=== PATIENT | female | born 1950 | race Caucasian/White ===

== ENCOUNTER → 2018-07-15 09:25 | Outpatient (CLI) | payer OTHER, SELFPAY ==
--- NOTE | 2018-07-15 | DI.CT.S_ITS ---
PROCEDURE: CT ABDOMEN PELVIS W CON INDICATIONS: ABDOMINAL PAIN WEIGHT LOSS TECHNIQUE: After the administration of oral and intravenous contrast, 5 mm thick sections acquired from the diaphragms to the symphysis. 5 mm thick coronal and sagittal reformats were performed. For radiation dose reduction, the following was used: automated exposure control, adjustment of mA and/or kV according to patient size. COMPARISON: [facility], CT, CT ANGIO CHEST PE, 05/31/2018, 13:35. FINDINGS: Image quality: Excellent. ABDOMEN: Lung bases: Questionable pulmonary scarring or atelectasis is present at the lateral left lung base. This was not visualized on the study dated 05/31/18. Solid organs: Liver is normal in size and enhancement. Gallbladder is mildly contracted.. Biliary system is non-dilated. Pancreas demonstrates overall normal enhancement. There is a 1.2 x 0.9 cm low-density cystic lesion within the body of the pancreas (series 2, image 26). There is a wedge-shaped regional area of hypodensity within the lower pole of the spleen which measures approximately 3.1 x 3.4 cm (series 2, image 27). No right adrenal nodules. There is 8mm diameter intermediate density left adrenal gland nodule (series 2, image 23). Kidneys are normal in size and enhancement, without hydronephrosis. The there is a 0.9 x 1.3 x 1.6 cm enhancing exophytic mass off the lower pole of the right kidney (series 2, image 38 and series 4, image 40). A low density cystic lesion is present off the midpole the left kidney. Peritoneum and bowel: Stomach, small bowel, and colon loops are normal in caliber and wall thickness. The appendix is not visualized; however there is no discrete right lower quadrant fluid or fat stranding to suggest acute appendicitis. No free fluid or air. Nodes and vessels: No retroperitoneal or mesenteric adenopathy. Aorta and inferior vena cava are normal in caliber. There are scattered atheromatous calcifications throughout the aorta and iliac arteries bilaterally. Miscellaneous: No ventral hernias. PELVIS: Genitourinary: Bladder wall thickness is normal. Miscellaneous: No inguinal adenopathy. There is a small fat-containing left inguinal hernia. Bones: No suspicious bony lesions. No vertebral body compression fractures. IMPRESSION: 1. Questionable pulmonary scar the left lung base. However, this was not visualized on the study dated 05/31/18. Given the chronicity of this finding short interval (1-3 month) CT followup is recommended to ensure there is no underlying occult mass. 2. Enhancing exophytic mass off the lower pole of the right kidney suspicious for neoplasm. Renal mass protocol CT is recommended to further characterize this finding. 3. Wedge-shaped hypodensity within the lower pole the spleen suspicious for splenic infarct. 4. Intermediate density adrenal gland mass. Differential considerations include metastasis an atypical adenoma. Adrenal mass protocol CT would be helpful to further characterize this finding. 5. Low-density cystic pancreatic mass. Cystic pancreatic neoplasm cannot be excluded. Pancreatic mass protocol CT recommended. Please note, multiple followup multiphase studies are recommended. Please coordinate with radiology to ensure appropriate phasicity to evaluate the pancreas, kidneys, and adrenal glands. Dictated by: Raina Burroughs M.D. on 07/15/2018 at 16:07 Approved by: Raina Burroughs M.D. on 07/15/2018 at 16:16
[2018-07-15 10:07] LABS: Estimated Glomerular Filt Rate 34.6 mL/min (>60)
== END ==
PROVIDERS: Family Provider Family Medicine; PCP Family Medicine; Visit Provider Internal Medicine
DX: R10.9 Unspecified abdominal pain (principal); R63.4 Abnormal weight loss; N28.9 Disorder of kidney and ureter, unspecified; E27.9 Disorder of adrenal gland, unspecified; K86.9 Disease of pancreas, unspecified
CPT/HCPCS: 36415; 74177; 82565; Q9967

== ENCOUNTER → 2018-07-22 10:10 | Outpatient (CLI) | payer OTHER, SELFPAY ==
--- NOTE | 2018-07-22 | DI.CT.S_ITS ---
PROCEDURE: CT ABDOMEN WO/W CON INDICATIONS: Further evaluation of adrenal, pancreatic, and renal lesions seen on recent CT. TECHNIQUE: Noncontrast 3 mm thick sections acquired from the diaphragms to the iliac crests. After the sequential administration of 2 boluses of intravenous contrast, 3 mm thick arterial/venous-phase and 10-minute delayed images acquired from the diaphragms to the iliac crests. For radiation dose reduction, the following was used: automated exposure control, adjustment of mA and/or kV according to patient size. COMPARISON: [facility], CT, CT ABDOMEN PELVIS W CON, 07/15/2018, 10:28. FINDINGS: Image quality: Excellent. Lung bases: There is mild dependent atelectasis and scarring in the lung bases. Heart size is normal. Solid organs: The liver demonstrates no focal hepatic lesions. Gallbladder appears within normal limits. Biliary system is non dilated. The spleen is normal in size. There is a wedge-shaped region of hypoattenuation redemonstrated within the anterior spleen consistent with a prior infarct. There is a left adrenal nodule measuring up to approximately 1.6 cm in thickness. This demonstrates attenuation values of less than 0 on noncontrast images consistent with a lipid rich adenoma. This also demonstrates relative washout of greater than 40% also compatible with an adenoma. At the junction of the body and tail of the pancreas, there is a small ovoid lesion measuring 1.1 x 0.8 x 1.0 cm which appears isoattenuating to the pancreas on noncontrast images. Following contrast administration, there is internal enhancement with relative hypoenhancement compared to the pancreatic parenchyma. There is an adjacent small calcified focus. Extending posterolaterally from the right kidney, there is an ovoid mass lesion which demonstrates slight hyperattenuation relative to the kidney. There is internal enhancement with relative hypoenhancement compared to the renal parenchyma. This measures approximately 1.5 x 1.0 x 1.4 cm. This appears to abut the posterior abdominal wall. Elsewhere, no evidence of local invasion. No renal vein extension. Kidneys demonstrate no hydronephrosis. There is a small exophytic cyst in the left kidney as well as a few small low density foci in the kidneys bilaterally which are too small to characterize but likely represent cysts. Peritoneum and bowel: Visualized bowel loops are normal in caliber and wall thickness. No free fluid or air. Nodes and vessels: No retroperitoneal or mesenteric adenopathy by size criteria. Aorta and inferior vena cava are normal in size. Miscellaneous: There are a few surgical clips anteriorly within the visualized abdomen. No ventral hernias. Bones: No suspicious bony lesions. No vertebral body compression fractures. IMPRESSION: 1. Enhancing mass at the junction of the pancreatic body and tail suspicious for neoplasm. Differential considerations include impression given its hypoenhancement, a neuroendocrine tumor, or metastatic disease among other etiologies. 2. Right renal enhancing mass highly suspicious for renal cell carcinoma. This abuts the posterior abdominal wall, with early invasion not excluded. No evidence of lymphadenopathy or renal vein invasion. 3. Left adrenal nodule consistent with an adenoma. Dictated by: Robbin Marx M.D. on 07/22/2018 at 11:05 Approved by: Robbin Marx M.D. on 07/22/2018 at 12:20
== END ==
PROVIDERS: Family Provider Family Medicine; PCP Family Medicine; Visit Provider Family Medicine
DX: E27.8 Other specified disorders of adrenal gland (principal); K86.89 Other specified diseases of pancreas; N28.9 Disorder of kidney and ureter, unspecified
CPT/HCPCS: 74170; Q9967

== ENCOUNTER 2018-08-10 14:43 | Emergency (ER) | payer OTHER, SELFPAY ==
--- NOTE | 2018-08-10 14:50 | DI.CT.S_ITS ---
PROCEDURE: CT HEAD/BRAIN WO CON INDICATIONS: HTN headache, hx cva in may TECHNIQUE: Noncontrast 4.5 mm thick angled axial sections acquired from the foramen magnum to the vertex, with coronal and sagittal reformats. For radiation dose reduction, the following was used: automated exposure control, adjustment of mA and/or kV according to patient size. COMPARISON: None. FINDINGS: Image quality: Excellent. CSF spaces: Basal cisterns are patent. No extra-axial fluid collections. The ventricles are symmetric in size and shape. Brain: No intracranial bleeds or masses. There is cerebral volume loss for age, with resultant ventricular and sulcal prominence. There are periventricular and deep white matter chronic small vessel ischemic changes. There is intracranial internal carotid artery atherosclerosis. Skull and face: Calvarium and visualized facial bones appear intact, without suspicious lesions. Sinuses: Visualized sinuses and mastoids are clear. IMPRESSION: Mildly motion degraded examination. Within those constraints, no gross acute intracranial process. Dictated by: Tobias Hollingsworth M.D. on 08/10/2018 at 15:26 Approved by: Tobias Hollingsworth M.D. on 08/10/2018 at 15:29
[2018-08-10 14:59] VITALS: BP 163/106; PULSE 69; RESP 19; TEMP 36.8; O2SAT 98; BMI 25.5
[2018-08-10 15:02] LABS: Add Manual Diff / Slide Review NO; Basophils Percent Auto 0.4 % (0-2); Eosinophils Percent Auto 2.3 % (2-4); Hematocrit 31.6 % (36-46); Hemoglobin 10.3 g/dL (12.0-16.0); Lymphocytes Percent Auto 32.6 % (25-40); Mean Corpuscular HGB Conc 32.7 % (30-36); Mean Corpuscular Volume 85.6 fL (80-100); Monocytes Percent Auto 6.1 % (3-14); Neutrophils Absolute Auto 5800 /uL (3000-5900); Neutrophils Percent Auto 58.6 % (50-75); Platelet Count 350 X10^3/uL (150-400); Red Blood Cell Count 3.69 X10^6/uL (4.0-5.2); White Blood Cell Count 9.9 X10^3/uL (4.5-11.0)
[2018-08-10 15:16] LABS: Alanine Aminotransferase 32 IU/L (9-52); Albumin 3.3 g/dL (3.5-5.0); Albumin Globulin Ratio 1.2 (1.0-2.8); Alkaline Phosphatase 75 U/L (38-126); Aspartate Aminotransferase 23 IU/L (14-36); BUN Creatinine Ratio 15.6 (6-22); Bilirubin Total 0.2 mg/dL (0.2-1.3); Blood Urea Nitrogen 14 mg/dL (7-17); Calcium 8.7 mg/dL (8.4-10.2); Carbon Dioxide 25 mmol/L (22-32); Chloride 104 mmol/L (98-107); Creatine Kinase 46 U/L (30-135); Estimated Glomerular Filt Rate > 60.0 mL/min (>60); Globulin 2.7 g/dL (1.7-4.1); Glucose 166 mg/dL (80-110); HEMOLYSIS < 15 (0-50); Potassium 4.5 mmol/L (3.4-5.1); Sodium 140 mmol/L (137-145)
[2018-08-10] MEDS: ACETAMINOPHEN 325 MG TABLET 650 MG PO (15:17)
--- NOTE | 2018-08-10 15:21 | ED_ITS ---
HPI - Headache General Chief Complaint: Headache Stated Complaint: Headache Time Seen by Provider: 08/10/18 14:48 Source: patient, EMS and old records reviewed Mode of arrival: EMS Limitations: no limitations History of Present Illness HPI Narrative: Patient is a 67-year-old female who presents with headache and hypertension. She said the headache started really bad this morning across forehead. Her gave her leave it did not really work. She called EMS who noted that her blood pressure was quite elevated in the 200s. She says that she took all of her blood pressure medication. She does have a history of a stroke in May she says she has no recollection of the stroke order 2 weeks during the stroke. She was sent to a halfway and rehab facility afterwards and then released back home where she is now. She has no numbness or tingling no weakness. She states that she does have some right arm residual weakness from a stroke but nothing new today. She has no chest pain or shortness of breath no nausea or vomiting. She says her headache is now a 2. Her blood pressure in the ED is now 163/102. She overall is feeling better. MD Complaint: headache Related Data Home Medications Medication Instructions Recorded Confirmed furosemide 20 mg PO QDAY #0 08/12/17 08/10/18 aspirin 325 mg PO DAILY 08/10/18 08/10/18 atorvastatin 80 mg PO DAILY 08/10/18 08/10/18 biotin 1,000 mcg PO DAILY 08/10/18 08/10/18 clopidogrel 75 mg PO DAILY 08/10/18 08/10/18 coenzyme Q10 [Co Q-10] 100 mg PO DAILY 08/10/18 08/10/18 diphenhydramine HCl 50 mg PO BEDTIME PRN 08/10/18 08/10/18 insulin glargine [Lantus Solostar 20 units SUBCUT QPM 08/10/18 08/10/18 U-100 Insulin] magnesium 250 mg PO DAILY 08/10/18 08/10/18 metformin 1,000 mg PO QPM 08/10/18 08/10/18 metformin 1,500 mg PO QAM 08/10/18 08/10/18 metoprolol tartrate 50 mg PO BID 08/10/18 08/10/18 naproxen sodium [Aleve] 440 mg PO QAM 08/10/18 08/10/18 omeprazole 20 mg PO DAILY 08/10/18 08/10/18 ondansetron HCl 4 mg PO Q6H PRN 08/10/18 08/10/18 trazodone 100 mg PO BEDTIME 08/10/18 08/10/18 Allergies Allergy/AdvReac Type Severity Reaction Status Date / Time shellfish derived Allergy Severe anaphylaxis Verified 08/10/18 15:16 [SHELLFISH DERIVED] Penicillins [PENICILLINS] Allergy Intermediate affects Verified 08/10/18 15:16 breathing acetaminophen Allergy Unknown Verified 08/10/18 15:16 [From DARVOCET-N] morphine [MORPHINE] Allergy Unknown Verified 08/10/18 15:16 propoxyphene Allergy Unknown Verified 08/10/18 15:16 [From DARVOCET-N] Tetracyclines [TETRACYCLINES] Allergy Unknown Verified 08/10/18 15:16 ERYTHROMYCIN Allergy Mild Uncoded 02/10/18 13:00 HYDROCODONE Allergy Mild Uncoded 02/10/18 13:00 SULFA Allergy Mild Uncoded 02/10/18 13:00 Review of Systems Review of Systems All systems reviewed & are unremarkable except as noted in HPI and below Constitutional Denies chills, Denies fever(s), Reports headache(s), Denies lethargy and Denies weakness ENT Ears, Nose, Mouth, and Throat: Reports headache(s) Cardiovascular Denies chest pain, Denies irregular heart rhythm, Denies lightheadedness, Denies palpitations, Denies dyspnea, Denies dyspnea on exertion and Denies orthopnea Respiratory Denies cough, Denies dyspnea, Denies dyspnea on exertion and Denies wheezing Gastrointestinal Gastrointestinal: Denies abdominal pain, Denies change in bowel habits, Denies diarrhea, Denies nausea and Denies vomiting Genitourinary Denies hematuria, Denies flank pain, Denies urinary incontinence and Denies urinary urgency Musculoskeletal Denies back pain, Denies muscle weakness, Denies numbness and Denies tingling Integumentary/Breasts Denies pruritus, Denies erythema, Denies rash and Denies wounds Neurologic Reports headache(s), Denies numbness, Denies tingling and Denies weakness Endocrine Denies palpitations Allergic/Immunologic Denies wheezing PFSH Medical History CVA (cerebral vascular accident) (Acute) Hyperlipidemia (Acute) Hypertension (Acute) Exam Initial Vital Signs Initial Vital Signs: Vital Signs Temperature 98.2 F 08/10/18 14:59 Pulse Rate 69 08/10/18 14:59 Respiratory Rate 19 08/10/18 14:59 Blood Pressure 163/106 H 08/10/18 14:59 Pulse Oximetry 98 08/10/18 14:59 GENERAL: Pleasant alert elderly female HEENT: Head atraumatic,EOMI, pupils reactive, face symmetric, neck is supple CARDIOVASCULAR: Regular rate and rhythm without murmurs, rubs or gallops. RESPIRATORY: Breath sounds equal bilaterally, no wheezes rales or rhonchi. ABDOMEN: Soft, nontender. Normoactive bowel sounds all 4 quadrants. No guarding or rebound. : No CVA tenderness EXTREMITIES: Normal range of motion, no clubbing or edema. Neurovascularly intact NEUROLOGICAL: Alert and oriented x4.Normal gait and speech. Cranial nerves II through XII grossly intact. 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 Lower extremities is are equal. SKIN: Warm, dry, no laceration, no petechiae, no rashes or lesions. Course Orders Ordered: ED Orders 08/10/18 14:50 CT head/brain wo con Stat Complete Blood Count AUTO DIFF Stat Comprehensive Metabolic Panel Stat Troponin & CK Cardiac Panel Stat EKG-12 Lead Stat Discontinued Medications Acetaminophen (Tylenol) 650 mg PO NOW ONE Stop: 08/10/18 14:51 Last Admin: 08/10/18 15:17 Dose: 650 mg Labetalol HCl (Normodyne) 20 mg IV NOW ONE Stop: 08/10/18 15:59 Last Admin: 08/10/18 16:03 Dose: 10 mg Vital Signs - 8 hr 08/10/18 14:59 08/10/18 15:32 08/10/18 16:19 Temperature 98.2 F Pulse Rate 69 69 81 Respiratory Rate 19 16 18 Blood Pressure 163/106 H Blood Pressure [Left Arm] 190/83 H 186/82 H Pulse Oximetry 98 98 96 08/10/18 16:32 Temperature Pulse Rate 85 Respiratory Rate 24 Blood Pressure Blood Pressure [Left Arm] 157/70 H Pulse Oximetry 97 MDM - Headache Lab Data Attestation: I reviewed the patient's lab results. Result diagrams: 08/10/18 14:50 08/10/18 14:50 Lab Results 08/10/18 08/10/18 Range/Units 14:50 14:50 WBC 9.9 (4.5-11.0) X10^3/uL RBC 3.69 L (4.0-5.2) X10^6/uL Hgb 10.3 L (12.0-16.0) g/dL Hct 31.6 L (36-46) % MCV 85.6 (80-100) fL MCH 28.0 (26-34) PG MCHC 32.7 (30-36) % RDW 14.0 (11.6-14.8) % Plt Count 350 (150-400) X10^3/uL Neut % (Auto) 58.6 (50-75) % Lymph % (Auto) 32.6 (25-40) % [place] % (Auto) 6.1 (3-14) % Eos % (Auto) 2.3 (2-4) % Baso % (Auto) 0.4 (0-2) % Neut # (Auto) 5800 (2206-8390) /uL Sodium 140 (137-145) mmol/L Potassium 4.5 (3.4-5.1) mmol/L Chloride 104 (98-107) mmol/L Carbon Dioxide 25 (22-32) mmol/L BUN 14 (7-17) mg/dL Creatinine 0.90 (0.52-1.04) mg/dL Estimated GFR > 60.0 (>60) mL/min BUN/Creatinine Ratio 15.6 (6-22) Glucose 166 H (80-110) mg/dL Calcium 8.7 (8.4-10.2) mg/dL Total Bilirubin 0.2 (0.2-1.3) mg/dL AST 23 (14-36) IU/L ALT 32 (9-52) IU/L Alkaline Phosphatase 75 (38-126) U/L Total Creatine Kinase 46 (30-135) U/L CK-MB (CK-2) TNP CK-MB (CK-2) Rel Index TNP Troponin I < 0.012 (0.01-0.034) ng/mL Total Protein 6.0 L (6.3-8.2) g/dL Albumin 3.3 L (3.5-5.0) g/dL Globulin 2.7 (1.7-4.1) g/dL Albumin/Globulin Ratio 1.2 (1.0-2.8) Imaging Data CT scan - head: Radiologist's impression: PROCEDURE: CT HEAD/BRAIN WO CON INDICATIONS: HTN headache, hx cva in may TECHNIQUE: Noncontrast 4.5 mm thick angled axial sections acquired from the foramen magnum to the vertex, with coronal and sagittal reformats. For radiation dose reduction, the following was used: automated exposure control, adjustment of mA and/or kV according to patient size. COMPARISON: None. FINDINGS: Image quality: Excellent. CSF spaces: Basal cisterns are patent. No extra-axial fluid collections. The ventricles are symmetric in size and shape. Brain: No intracranial bleeds or masses. There is cerebral volume loss for age , with resultant ventricular and sulcal prominence. There are periventricular and deep white matter chronic small vessel ischemic changes. There is intracranial internal carotid artery atherosclerosis. Skull and face: Calvarium and visualized facial bones appear intact, without suspicious lesions. Sinuses: Visualized sinuses and mastoids are clear. IMPRESSION: Mildly motion degraded examination. Within those constraints, no gross acute intracranial process. Dictated by: Tobias Hollingsworth M.D. on 08/10/2018 at 15:26 ECG Data Attestation: I personally reviewed and interpreted this ECG as follows: Prior ECG tracings: not available for review Interpretation: Normal sinus rhythm rate [address] changes Q-wave noted in lead 3 unchanged from 2017 MDM Narrative Medical decision making narrative: Patient's headache is basically gone after Tylenol however her blood pressure remained quite elevated. She is given 10 mg of labetalol. She has no focal deficits head CT blood work within normal limits. She feels ready and able to go home. Her is here they have a lot of help at home occupational therapy is along with others. She is currently asking for string cheese. Discharge Plan Departure Patient Disposition: Home Clinical Impression: Hypertension Discharge Date/Time: 08/10/18 16:55 Instructions: Essential Hypertension Activity Restrictions/Additional Instructions: *You have been diagnosed with hypertension *What to do: Blood work head CT all within normal limits *Continue to take medications as directed Take blood pressure medication tonight as previously prescribed *Follow up with your primary care provider in 2-3 days *Return to ER if you should have worsening headache, confusion, weakness, facial drooping or any new, worsening or concerning symptoms Prescriptions: No Action furosemide 20 MG tablet 20 mg PO QDAY Qty: 0 RF: 0 metformin 500 mg tablet 1,500 mg PO QAM RF: 0 metformin 500 mg tablet 1,000 mg PO QPM RF: 0 atorvastatin 80 mg tablet 80 mg PO DAILY RF: 0 diphenhydramine HCl 50 mg Capsule 50 mg PO BEDTIME PRN (Reason: Sleep) RF: 0 aspirin 325 mg Tablet 325 mg PO DAILY RF: 0 ondansetron HCl 4 mg tablet 4 mg PO Q6H PRN (Reason: Nausea) RF: 0 clopidogrel 75 mg tablet 75 mg PO DAILY RF: 0 trazodone 100 mg tablet 100 mg PO BEDTIME RF: 0 naproxen sodium [Aleve] 220 mg Tablet 440 mg PO QAM RF: 0 metoprolol tartrate 50 mg tablet 50 mg PO BID RF: 0 omeprazole 20 mg Capsule,Delayed Release(Dr/Ec) 20 mg PO DAILY RF: 0 magnesium 250 mg Tablet 250 mg PO DAILY RF: 0 coenzyme Q10 [Co Q-10] 100 mg Capsule 100 mg PO DAILY RF: 0 insulin glargine [Lantus Solostar U-100 Insulin] 100 unit/mL (3 mL) insulin pen 20 units subcut QPM RF: 0 biotin 1,000 mcg Tablet,Chewable 1,000 mcg PO DAILY RF: 0 Referrals: Esteban Pressley MD [Primary Care Provider] -
[2018-08-10 15:28] LABS: Troponin I < 0.012 ng/mL (0.01-0.034)
[2018-08-10 15:32] VITALS: BP 190/83; PULSE 69; RESP 16; O2SAT 98
--- NOTE | 2018-08-10 15:41 | PC.NURSE ---
Pt had stroke in May. Was hospitalized at [facility]. Went to a rehab facility and discharged home. Has home health nurse who recommended she come in for elevated blood pressure. 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 No arm drift, no speech slurring, no facial droop.
[2018-08-10] MEDS: LABETALOL 100 MG/20ML MDV 20 MG IV (16:03)
[2018-08-10 16:19] VITALS: BP 186/82; PULSE 81; RESP 18; O2SAT 96
[2018-08-10 16:32] VITALS: BP 157/70; PULSE 85; RESP 24; O2SAT 97
--- NOTE | 2018-08-12 17:22 | PC.NURSE ---
Provided follow up phone call, Pt reports feeling poor yesterday with headache, nausea, vomiting and diarrhea. Encouraged to call and schedule a follow up appt with pcp. Pt had no questions regarding d/c paperwork. No stated improvement.
== END 2018-08-10 16:55 | disposition home or self-care (01) ==
PROVIDERS: Emergency Provider Emergency Medicine; Family Provider Family Medicine; PCP Family Medicine
DX: I10 Essential (primary) hypertension (principal)
CPT/HCPCS: 36591; 70450; 80053; 82550; 84484; 85025; 93005; 96374; 99283; 99285

== ENCOUNTER 2018-08-25 07:46 | Emergency (ER) | payer OTHER, SELFPAY ==
[2018-08-25 07:52] VITALS: BP 208/72; PULSE 67; RESP 16; TEMP 36.5; O2SAT 94; BMI 25.4
[2018-08-25 08:11] VITALS: BP 160/83; PULSE 71; RESP 17; O2SAT 98
--- NOTE | 2018-08-25 09:37 | ED_ITS ---
HPI - Headache General Chief Complaint: Headache Stated Complaint: HEAD, EYE PAIN Time Seen by Provider: 08/25/18 09:15 Source: patient and family () Limitations: no limitations History of Present Illness HPI Narrative: This is a 67-year-old female who comes to the emergency department with complaint of headache patient states headache has been there for several days maybe even a week. It was worse particularly at 5:30 a.m. this morning Um and she states is still quite bad but she is a little bit better. Patient and her state that she had a stroke in May. He states that she had gone to the hospital she had a fall and struck her head Um and then was in the hospital for several weeks followed by a stay in a care facility. She has some mild right-sided deficits of her upper extremity lower leg but they state that it has been improving and she initially had slurred speech but that has resolved. Patient has not had any new weakness she is not having any slurred speech. She states her pain is sort of behind her eyes as well but she denies any new vision changes. Her and her states she both has chronic vision loss. Patient denies any neck pain or back pain. No chest pain or shortness of breath and no abdominal pain. She denies any vomiting but has felt nauseated. No GI or urinary symptoms. No incontinence. Patient had some Advil at home but was not helpful. Related Data Home Medications Medication Instructions Recorded Confirmed furosemide 20 mg PO QDAY #0 08/12/17 08/25/18 aspirin 325 mg PO DAILY 08/10/18 08/25/18 atorvastatin 80 mg PO DAILY 08/10/18 08/25/18 biotin 1,000 mcg PO DAILY 08/10/18 08/25/18 clopidogrel 75 mg PO DAILY 08/10/18 08/25/18 coenzyme Q10 [Co Q-10] 100 mg PO DAILY 08/10/18 08/25/18 diphenhydramine HCl 50 mg PO BEDTIME PRN 08/10/18 08/25/18 insulin glargine [Lantus Solostar 20 units SUBCUT QPM 08/10/18 08/25/18 U-100 Insulin] magnesium 250 mg PO DAILY 08/10/18 08/25/18 metformin 1,000 mg PO QPM 08/10/18 08/25/18 metformin 1,500 mg PO QAM 08/10/18 08/25/18 metoprolol tartrate 50 mg PO BID 08/10/18 08/25/18 naproxen sodium [Aleve] 440 mg PO QAM 08/10/18 08/25/18 omeprazole 20 mg PO DAILY 08/10/18 08/25/18 ondansetron HCl 4 mg PO Q6H PRN 08/10/18 08/25/18 trazodone 100 mg PO BEDTIME 08/10/18 08/25/18 benzonatate 1 cap PO TID PRN 08/25/18 08/25/18 diphenoxylate-atropine 1 tab PO QID PRN 08/25/18 08/25/18 glipizide 1 tab PO DAILY 08/25/18 08/25/18 losartan 1 tab PO DAILY 08/25/18 08/25/18 nitrofurantoin monohyd/m-cryst 1 cap PO BID 08/25/18 08/25/18 Previous Rx's Medication Instructions Recorded tramadol [Ultram] 50 mg PO Q6H PRN #5 tab 08/25/18 Allergies Allergy/AdvReac Type Severity Reaction Status Date / Time shellfish derived Allergy Severe anaphylaxis Verified 08/25/18 07:52 [SHELLFISH DERIVED] Penicillins [PENICILLINS] Allergy Intermediate affects Verified 08/25/18 07:52 breathing acetaminophen Allergy Unknown Verified 08/25/18 07:52 [From DARVOCET-N] morphine [MORPHINE] Allergy Unknown Verified 08/25/18 07:52 propoxyphene Allergy Unknown Verified 08/25/18 07:52 [From DARVOCET-N] Tetracyclines [TETRACYCLINES] Allergy Unknown Verified 08/25/18 07:52 ERYTHROMYCIN Allergy Mild Uncoded 08/25/18 07:52 HYDROCODONE Allergy Mild Uncoded 08/25/18 07:52 SULFA Allergy Mild Uncoded 08/25/18 07:52 Review of Systems Review of Systems All systems reviewed & are unremarkable except as noted in HPI and below Constitutional Denies fever(s), Denies frequent falls, Reports headache(s) and Reports weakness (Right-sided deficit from prior stroke) Eyes Denies change in vision ENT Ears, Nose, Mouth, and Throat: Reports headache(s) and Denies other (Facial droop) Cardiovascular Denies chest pain, Denies syncope, Denies irregular heart rhythm, Denies lightheadedness, Denies palpitations, Denies dyspnea, Denies dyspnea on exertion and Denies orthopnea Respiratory Denies cough, Denies dyspnea, Denies dyspnea on exertion and Denies wheezing Gastrointestinal Gastrointestinal: Denies abdominal pain, Denies change in bowel habits, Denies diarrhea, Reports nausea and Denies vomiting Genitourinary Denies urinary frequency and Denies other (Urinary incontinence) Musculoskeletal Reports as per HPI, Denies abnormal gait, Denies back pain, Denies numbness and Denies tingling Integumentary/Breasts Denies rash Neurologic Denies abnormal gait, Denies confusion, Denies syncope, Denies frequent falls, Reports headache(s), Denies lack of coordination, Denies numbness, Denies tingling and Reports weakness (Right-sided deficit from prior stroke) Psychiatric Denies confusion Endocrine Denies palpitations Allergic/Immunologic Denies wheezing PFSH Medical History CVA (cerebral vascular accident) (Acute) Hyperlipidemia (Acute) Hypertension (Acute) Social History alcohol intake: never substance use type: does not use Exam Narrative Exam Narrative: GEN: well nourished, well appearing elderly female, alert and oriented x 3, patient appears to be in mild distress. HEENT: Atraumatic, pupils are equal round reactive to light, extraocular movements are intact, nares are clear, TMs are clear with no fluid, there is no conjunctival pallor. Throat is clear without any exudates, erythema, tonsillar enlargement or uvular deviation, no facial droop. No dysarthria. HEART: Regular rate and rhythm without murmur, clicks, rubs. pulses are equal in upper and lower extremities LUNGS:Lungs clear to auscultation, no wheezes, rales, crackles, chest moves symmetrically ABD:bowel sounds normal, soft, non-tender, no guarding, rebound, rigidity, no masses noted, no hepatosplenomegaly :No CVA tenderness MSCL: Non-tender, no muscle atrophy, muscles strength 5/5 upper and lower extremities, patient is able to hold arms and legs for 10 sec without issue ordered drop. although pantograph transferrer is slightly weaker on the right compared to left, full range of motion NEURO:CN 2-12 intact, sensation normal, reflexes 2/4 upper and lower extremities. finger nose normal, patient has difficulty touching my finger but on both sides and her states she has vision issues and she cannot see my finger, heel roche test normal Initial Vital Signs Initial Vital Signs: Vital Signs Temperature 97.7 F 08/25/18 07:52 Pulse Rate 67 08/25/18 07:52 Respiratory Rate 16 08/25/18 07:52 Blood Pressure 208/72 H 08/25/18 07:52 Pulse Oximetry 94 08/25/18 07:52 Scores NIH Stroke Scale Level of Conciousness: Alert, keenly responsive Ask month/age: Answers both questions correctly. Best gaze horizontal: Normal Visual francis: No visual loss (patient does have some loss but not hemianopia) Facial palsy: Normal symetrical movement Left arm drift: No drift for full 10 sec Right arm drift: No drift for full 10 sec Left leg drift: No drift for full 10 sec Right leg drift: No drift for full 10 sec Limb ataxia: Absent Sensory on face/arms/legs: Normal, no sensory loss Best language: No aphasia, normal Dysarthria: Normal Extinction or inattention: No abnormality Course Orders Ordered: Discontinued Medications Acetaminophen (Tylenol) 975 mg PO NOW ONE Stop: 08/25/18 09:35 Last Admin: 08/25/18 11:29 Dose: Not Given Dexamethasone (Decadron) 4 mg IV NOW ONE Stop: 08/25/18 12:18 Last Admin: 08/25/18 12:21 Dose: 4 mg Sodium Chloride (Normal Saline 0.9%) 1,000 mls @ 1,000 mls/hr IV BOLUS ONE Stop: 08/25/18 10:33 Last Infusion: 08/25/18 12:22 Dose: 0 mls/hr Admin: 08/25/18 10:05 Dose: 1,000 mls/hr Ketorolac Tromethamine (Toradol) 15 mg IV NOW ONE Stop: 08/25/18 11:15 Last Admin: 08/25/18 11:25 Dose: 15 mg Ondansetron HCl (Zofran) 4 mg IV NOW ONE Stop: 08/25/18 10:05 Last Admin: 08/25/18 10:05 Dose: 4 mg Tramadol HCl (Ultram) 50 mg PO NOW ONE Stop: 08/25/18 12:42 Last Admin: 08/25/18 12:51 Dose: 25 mg Vital Signs - 8 hr 08/25/18 12:27 08/25/18 13:13 08/25/18 13:32 Pulse Rate 84 72 75 Respiratory Rate 17 15 Blood Pressure 203/105 H Blood Pressure [Left Arm] 203/76 H 219/75 H Pulse Oximetry 98 98 97 MDM - Headache Lab Data Attestation: I reviewed the patient's lab results. Result diagrams: 08/25/18 08:05 08/25/18 08:05 Lab Results 08/25/18 08/25/18 08/25/18 Range/Units 08:05 08:05 08:05 WBC 7.1 (4.5-11.0) X10^3/uL RBC 3.42 L (4.0-5.2) X10^6/uL Hgb 9.7 L (12.0-16.0) g/dL Hct 28.6 L (36-46) % MCV 83.6 (80-100) fL MCH 28.4 (26-34) PG MCHC 33.9 (30-36) % RDW 13.9 (11.6-14.8) % Plt Count 361 (150-400) X10^3/uL Neut % (Auto) 60.8 (50-75) % Lymph % (Auto) 28.4 (25-40) % Throckmorton % (Auto) 7.2 (3-14) % Eos % (Auto) 3.0 (2-4) % Baso % (Auto) 0.6 (0-2) % Neut # (Auto) 4300 (3858-0092) /uL PT 10.7 (10.1-12.7) SECONDS INR 1.0 (0.9-1.3) APTT 30 (26.4-36.2) SECONDS Sodium 140 (137-145) mmol/L Potassium 3.4 (3.4-5.1) mmol/L Chloride 102 (98-107) mmol/L Carbon Dioxide 35 H (22-32) mmol/L BUN 11 (7-17) mg/dL Creatinine 0.70 (0.52-1.04) mg/dL Estimated GFR > 60.0 (>60) mL/min BUN/Creatinine Ratio 15.7 (6-22) Glucose 88 (80-110) mg/dL Calcium 8.4 (8.4-10.2) mg/dL Total Bilirubin 0.3 (0.2-1.3) mg/dL AST 101 H (14-36) IU/L ALT 41 (9-52) IU/L Alkaline Phosphatase 77 (38-126) U/L Total Protein 5.7 L (6.3-8.2) g/dL Albumin 3.1 L (3.5-5.0) g/dL Globulin 2.6 (1.7-4.1) g/dL Albumin/Globulin Ratio 1.2 (1.0-2.8) Urine RBC (0-5/HPF) Urine WBC (0-5/HPF) Urine Bacteria (None) Ur Culture Indicated? Micro UA Comment 08/25/18 Range/Units 09:15 WBC (4.5-11.0) X10^3/uL RBC (4.0-5.2) X10^6/uL Hgb (12.0-16.0) g/dL Hct (36-46) % MCV (80-100) fL MCH (26-34) PG MCHC (30-36) % RDW (11.6-14.8) % Plt Count (150-400) X10^3/uL Neut % (Auto) (50-75) % Lymph % (Auto) (25-40) % Throckmorton % (Auto) (3-14) % Eos % (Auto) (2-4) % Baso % (Auto) (0-2) % Neut # (Auto) (9635-0886) /uL PT (10.1-12.7) SECONDS INR (0.9-1.3) APTT (26.4-36.2) SECONDS Sodium (137-145) mmol/L Potassium (3.4-5.1) mmol/L Chloride (98-107) mmol/L Carbon Dioxide (22-32) mmol/L BUN (7-17) mg/dL Creatinine (0.52-1.04) mg/dL Estimated GFR (>60) mL/min BUN/Creatinine Ratio (6-22) Glucose (80-110) mg/dL Calcium (8.4-10.2) mg/dL Total Bilirubin (0.2-1.3) mg/dL AST (14-36) IU/L ALT (9-52) IU/L Alkaline Phosphatase (38-126) U/L Total Protein (6.3-8.2) g/dL Albumin (3.5-5.0) g/dL Globulin (1.7-4.1) g/dL Albumin/Globulin Ratio (1.0-2.8) Urine RBC None seen (0-5/HPF) Urine WBC None seen (0-5/HPF) Urine Bacteria None seen (None) Ur Culture Indicated? Cult not indicated Micro UA Comment Microscopic normal Point of Care Testing Glucose POC 104 Urine Dip Bedside Urine Glucose Negative Bedside Urine Bilirubin - Negative Bedside Urine Ketone - Negative Urine Specific Hammett 1.015 Bedside Urine Occult Blood - Negative Bedside Urine pH 7.5 Bedside Urine Protein ++ 100 Bedside Urine Urobilinogen - Negative Bedside Urine Nitrite - Negative Bedside Urine Leukocytes - Negative Esterase Imaging Data CT scan - head: Radiologist's impression: [address] [address] [address] Scan Report Signed Patient: Anu Escudero LMR#: [id number] : [id number]:[id number] Age/Sex: 67 / FDate of Service: 08/25/18 Loc: ED Accession Number: [id number] Procedure: CT head/brain wo con Ordering Provider: Heike Moy D.O. PROCEDURE: CT HEAD/BRAIN WO CON INDICATIONS: headache for several days, had cva in May. TECHNIQUE: Noncontrast 4.5 mm thick angled axial sections acquired from the foramen magnum to the vertex, with coronal and sagittal reformats. For radiation dose reduction, the following was used: automated exposure control, adjustment of mA and/or kV according to patient size. COMPARISON: None. FINDINGS: Image quality: Excellent. CSF spaces: Basal cisterns are patent. No extra-axial fluid collections. The ventricles are symmetric in size and shape. Brain: No intracranial bleeds or masses. There is cerebral volume loss for age , with resultant ventricular and sulcal prominence. There are periventricular and deep white matter chronic small vessel ischemic changes. There is intracranial internal carotid artery atherosclerosis. Skull and face: Calvarium and visualized facial bones appear intact, without suspicious lesions. Sinuses: Visualized sinuses and mastoids are clear. IMPRESSION: No acute disease, source of current symptoms is not seen. Dictated by: Ilia Muñiz M.D. on 08/25/2018 at 10:01 Approved by: Ilia Muñiz M.D. on 08/25/2018 at 10:01 [facility] Narrative Medical decision making narrative: Patient is having a severe headache over the last several days worsening today. She did have a recent stroke Um and we discussed that she is not having any new neurologic changes. She does have some right-sided deficit according to her although it has been improving. Patient today has some slightly decreased pantograph transferrer on the right but her upper and lower extremities otherwise have equal strength. She does not have any difficulty with speech or other signs of new stroke. Was head CT is negative. Patient has a long list of allergies but will try Toradol for pain she states she can have ibuprofen. She cannot have narcotics she states they make her stop breathing. Patient urine is also negative with no signs of infection. Toradol was helpful after some time. Still has some discomfort and given tramadol which patient tolerated. Discharge Plan Departure Patient Disposition: Home Clinical Impression: Headache Discharge Date/Time: 08/25/18 13:34 Interventions: ED Discharge Assessment Last Done: 08/25/18 13:32 Instructions: DI for Headache Activity Restrictions/Additional Instructions: Follow-up with your primary care physician in the next 24-48 hours for recheck. Continue your home medications as prescribed. You may take Advil or Ibuprofen for pain. Return to the emergency department for fevers, worsening headaches, new vision changes, new weakness, new numbness, new changes to speech or difficulty with movement or balance. Any chest pain, shortness of breath or passing out. Prescriptions: New tramadol [Ultram] 50 mg tablet 50 mg PO Q6H PRN (Reason: pain) Qty: 5 RF: 0 No Action furosemide 20 MG tablet 20 mg PO QDAY Qty: 0 RF: 0 metformin 500 mg tablet 1,500 mg PO QAM RF: 0 metformin 500 mg tablet 1,000 mg PO QPM RF: 0 atorvastatin 80 mg tablet 80 mg PO DAILY RF: 0 diphenhydramine HCl 50 mg Capsule 50 mg PO BEDTIME PRN (Reason: Sleep) RF: 0 aspirin 325 mg Tablet 325 mg PO DAILY RF: 0 ondansetron HCl 4 mg tablet 4 mg PO Q6H PRN (Reason: Nausea) RF: 0 clopidogrel 75 mg tablet 75 mg PO DAILY RF: 0 trazodone 100 mg tablet 100 mg PO BEDTIME RF: 0 naproxen sodium [Aleve] 220 mg Tablet 440 mg PO QAM RF: 0 metoprolol tartrate 50 mg tablet 50 mg PO BID RF: 0 omeprazole 20 mg Capsule,Delayed Release(Dr/Ec) 20 mg PO DAILY RF: 0 magnesium 250 mg Tablet 250 mg PO DAILY RF: 0 coenzyme Q10 [Co Q-10] 100 mg Capsule 100 mg PO DAILY RF: 0 insulin glargine [Lantus Solostar U-100 Insulin] 100 unit/mL (3 mL) insulin pen 20 units subcut QPM RF: 0 biotin 1,000 mcg Tablet,Chewable 1,000 mcg PO DAILY RF: 0 losartan 50 mg tablet 1 tab PO DAILY RF: 0 diphenoxylate-atropine 2.5-0.025 mg tablet 1 tab PO QID PRN (Reason: Diarrhea) RF: 0 benzonatate 100 mg capsule 1 cap PO TID PRN (Reason: Cough) RF: 0 glipizide 5 mg tablet 1 tab PO DAILY RF: 0 nitrofurantoin monohyd/m-cryst 100 mg capsule 1 cap PO BID RF: 0
[2018-08-25 09:44] LABS: Add Manual Diff / Slide Review NO; Basophils Percent Auto 0.6 % (0-2); Hematocrit 28.6 % (36-46); Hemoglobin 9.7 g/dL (12.0-16.0); Lymphocytes Percent Auto 28.4 % (25-40); Mean Corpuscular HGB Conc 33.9 % (30-36); Mean Corpuscular Hemoglobin 28.4 PG (26-34); Mean Corpuscular Volume 83.6 fL (80-100); Monocytes Percent Auto 7.2 % (3-14); Neutrophils Absolute Auto 4300 /uL (3000-5900); Neutrophils Percent Auto 60.8 % (50-75); Platelet Count 361 X10^3/uL (150-400); Red Blood Cell Count 3.42 X10^6/uL (4.0-5.2); Red Cell Distribution Width 13.9 % (11.6-14.8); White Blood Cell Count 7.1 X10^3/uL (4.5-11.0)
--- NOTE | 2018-08-25 09:44 | DI.CT.S_ITS ---
PROCEDURE: CT HEAD/BRAIN WO CON INDICATIONS: headache for several days, had cva in May. TECHNIQUE: Noncontrast 4.5 mm thick angled axial sections acquired from the foramen magnum to the vertex, with coronal and sagittal reformats. For radiation dose reduction, the following was used: automated exposure control, adjustment of mA and/or kV according to patient size. COMPARISON: None. FINDINGS: Image quality: Excellent. CSF spaces: Basal cisterns are patent. No extra-axial fluid collections. The ventricles are symmetric in size and shape. Brain: No intracranial bleeds or masses. There is cerebral volume loss for age, with resultant ventricular and sulcal prominence. There are periventricular and deep white matter chronic small vessel ischemic changes. There is intracranial internal carotid artery atherosclerosis. Skull and face: Calvarium and visualized facial bones appear intact, without suspicious lesions. Sinuses: Visualized sinuses and mastoids are clear. IMPRESSION: No acute disease, source of current symptoms is not seen. Dictated by: Ilia Muñiz M.D. on 08/25/2018 at 10:01 Approved by: Ilia Muñiz M.D. on 08/25/2018 at 10:01
[2018-08-25 09:45] LABS: Prothrombin Time 10.7 SECONDS (10.1-12.7)
[2018-08-25 09:47] LABS: Alanine Aminotransferase 41 IU/L (9-52); Albumin 3.1 g/dL (3.5-5.0); Albumin Globulin Ratio 1.2 (1.0-2.8); Alkaline Phosphatase 77 U/L (38-126); Aspartate Aminotransferase 101 IU/L (14-36); BUN Creatinine Ratio 15.7 (6-22); Bilirubin Total 0.3 mg/dL (0.2-1.3); Blood Urea Nitrogen 11 mg/dL (7-17); Calcium 8.4 mg/dL (8.4-10.2); Carbon Dioxide 35 mmol/L (22-32); Chloride 102 mmol/L (98-107); Estimated Glomerular Filt Rate > 60.0 mL/min (>60); Globulin 2.6 g/dL (1.7-4.1); Glucose 88 mg/dL (80-110); HEMOLYSIS 21 (0-50); Potassium 3.4 mmol/L (3.4-5.1); Sodium 140 mmol/L (137-145); Total Protein 5.7 g/dL (6.3-8.2)
[2018-08-25 09:48] LABS: PTT Partial Thromboplastin Tim 30 SECONDS (26.4-36.2)
[2018-08-25] MEDS: ONDANSETRON 4 MG/2 ML INJ IV (10:05)
[2018-08-25] MEDS: SODIUM CHLORIDE 0.9% 1,000 ML 1000 ML IV (10:05)
[2018-08-25 11:00] VITALS: BP 128/90; PULSE 74; RESP 23; O2SAT 98
[2018-08-25 11:14] LABS: Bacteria Urine None Seen; RBC Urine None Seen (0-5/HPF); WBC Urine None Seen (0-5/HPF)
[2018-08-25] MEDS: KETOROLAC 60 MG/2 ML VIAL 15 MG IV (11:25)
[2018-08-25 11:32] LABS: Culture Indicated Urine Cult Not Indicated; Urine Comments Microscopic Normal
[2018-08-25] MEDS: DEXAMETHASONE 4 MG/ML VIAL IV (12:21)
[2018-08-25 12:27] VITALS: BP 203/76; PULSE 84; RESP 17; O2SAT 98
[2018-08-25] MEDS: TRAMADOL 50 MG TABLET PO (12:51)
[2018-08-25 13:13] VITALS: BP 219/75; PULSE 72; RESP 15; O2SAT 98
[2018-08-25 13:32] VITALS: BP 203/105; PULSE 75; O2SAT 97
== END 2018-08-25 13:34 | disposition home or self-care (01) ==
PROVIDERS: Emergency Provider Emergency Medicine; PCP Family Medicine
DX: R51 Headache (principal)
CPT/HCPCS: 36591; 70450; 80053; 81003; 81015; 82962; 85025; 85610; 85730; 96361; 96374; 96375; 99283; 99284; J1100; J1885; J2405

== ENCOUNTER 2018-09-14 14:20 | Emergency (ER) | payer OTHER, SELFPAY ==
[2018-09-14 14:20] VITALS: BP 188/85; PULSE 63; RESP 14; TEMP 36.8; O2SAT 99
--- NOTE | 2018-09-14 15:26 | DI.CT.S_ITS ---
PROCEDURE: CT FACIAL BONES WO CON INDICATIONS: fall 3 days ago lots of brusing TECHNIQUE: Noncontrast 2.5 mm thick axial images acquired from the mandible through the frontal sinuses, with coronal and sagittal reformatting. For radiation dose reduction, the following was used: automated exposure control, adjustment of mA and/or kV according to patient size. COMPARISON: [facility], CT, CT HEAD/BRAIN WO CON, 09/14/2018, 16:13. FINDINGS: Image quality: Excellent. Bones and teeth: Small nondisplaced left nasal bone fracture is noted. Nasal septum is intact. Orbital cabrales are intact. Sinus cabrales show no fracture or deformity. Visualized portions of the mandible demonstrate no fractures or subluxation. Zygomatic arches are intact. Pterygoid plates are intact. Visualized portions of the skull base and auditory canals are intact. Degenerative disc disease is present at C5-C6 and C6-C7. Sinuses: Paranasal sinuses are aerated, without fluid levels, mucosal thickening, or mucoceles. Mastoid air cells are aerated. Soft tissues: No edema, masses, or fluid collections. No enlarged lymph nodes. No soft tissue lacerations or debris. Vascular: Visualized vascular structures appear normal in the absence of contrast. Bony vascular foramina and canals are intact. IMPRESSION: 1. A small nondisplaced left nasal bone fracture. Dictated by: Amarilys Hannon M.D. on 09/14/2018 at 16:41 Approved by: Amarilys Hannon M.D. on 09/14/2018 at 16:48
--- NOTE | 2018-09-14 15:26 | DI.CT.S_ITS ---
PROCEDURE: CT ABDOMEN PELVIS W CON INDICATIONS: Vomiting, pancreatic mass, early satiety TECHNIQUE: After the administration of intravenous contrast, 5 mm thick sections acquired from the diaphragm to the symphysis. 5 mm coronal and sagittal reformats were acquired. For radiation dose reduction, the following was used: automated exposure control, adjustment of mA and/or kV according to patient size. COMPARISON: [facility], CT, CT ANGIO CHEST PE, 05/31/2018, 13:35. [facility], CT, CT ABDOMEN WO/W CON, 07/22/2018, 11:12. [facility], CT, CT ABDOMEN PELVIS W CON, 07/15/2018, 10:28. FINDINGS: Image quality: Excellent. ABDOMEN: Lung bases: Left basilar subpleural scar. Heart size is normal. Solid organs: Liver is normal in size and enhancement. Gallbladder is normal. Biliary system is non dilated. There is a 1.1 cm hypodense nodule in pancreas at the junction of the pancreatic body and tail, unchanged in size. Spleen is normal in size and enhancement. There is a 1 cm left adrenal nodule, compatible with an adrenal adenoma based on the prior CT. A 1 cm enhancing nodules present in the right inferior pole, suspicious for neoplasm. There is a 1.5 cm diameter simple appearing cyst in the inferior pole the left kidney. Kidneys demonstrate normal size without hydronephrosis. Peritoneum and bowel: There is thickening in the air of gastric antrum. Bowel loops demonstrate normal caliber. No free fluid or air. Nodes and vessels: No retroperitoneal or mesenteric adenopathy by size criteria. Aorta and inferior vena cava are normal in size. Miscellaneous: No ventral hernias. PELVIS: Genitourinary: Bladder wall thickness is normal. Miscellaneous: No inguinal hernias or adenopathy. Bones: No suspicious bony lesions. No vertebral body compression fractures. IMPRESSION: 1. Gastric antral thickening is present, which may be secondary to peptic ulcer disease or gastritis. 2. Stable 1.1 cm low density mass in pancreas at the pancreatic body and tail junction. Please see the pancreatic protocol CT report dated 07/22/22 for detail. 3. Small enhancing nodule in the inferior pole of the right kidney suspicious for a small renal cell carcinoma. Urology consultation is recommended. 4. Stable left adrenal adenoma. Dictated by: Amarilys Hannon M.D. on 09/14/2018 at 16:48 Approved by: Amarilys Hannon M.D. on 09/14/2018 at 17:02
--- NOTE | 2018-09-14 15:29 | DI.CT.S_ITS ---
PROCEDURE: CT HEAD/BRAIN WO CON INDICATIONS: fall facial bruising TECHNIQUE: Noncontrast 4.5 mm thick angled axial sections acquired from the foramen magnum to the vertex, with coronal and sagittal reformats. For radiation dose reduction, the following was used: automated exposure control, adjustment of mA and/or kV according to patient size. COMPARISON: [facility], CT, CT HEAD/BRAIN WO CON, 08/10/2018, 14:47. [facility], CT, CT HEAD/BRAIN WO CON, 08/25/2018, 9:37. FINDINGS: Image quality: Excellent. CSF spaces: Basal cisterns are patent. No extra-axial fluid collections. The ventricles are symmetric in size and shape. Brain: No intracranial bleeds or masses. There is moderate cerebral volume loss for age, with resultant ventricular and sulcal prominence. There are moderate to severe periventricular and deep white matter chronic small vessel ischemic changes. Old lacunar infarcts are noted in the right caudate and basal ganglia. There is intracranial internal carotid artery atherosclerosis. Skull and face: Calvarium and visualized facial bones appear intact, without suspicious lesions. Sinuses: Visualized sinuses and mastoids are clear. IMPRESSION: 1. No acute intracranial abnormalities. 2. Cerebral volume loss and chronic microvascular ischemic changes. Dictated by: Amarilys Hannon M.D. on 09/14/2018 at 16:38 Approved by: Amarilys Hannon M.D. on 09/14/2018 at 16:41
--- NOTE | 2018-09-14 15:34 | ED.FALL ---
HPI - Fall General Chief Complaint: Fall Stated Complaint: cannot stand up, dizzy, fell, cant eat Time Seen by Provider: 09/14/18 14:59 Source: patient Mode of arrival: ambulatory Limitations: no limitations History of Present Illness HPI Narrative: Patient is a 67-year-old female who presents with a variety of complaints. She has a history of a stroke on in May she was placed seen at shelter [facility]hab and eventually discharged back home to her . Her says that she is dizzy she is unsteady on her feet she actually fell she has a contusion of her right eye she fell all last week. He says that she has home health care but she does not work with them. He says that she is not eating or drinking. She is feeling nauseated. His unable to keep food or drink in. He says she has progressively gotten worse over last 2 weeks. She will not get out of bed. Patient herself is awake and alert and has complaints of right arm discomfort but has had rate arm discomfort ongoing since her stroke. Nothing new. She denies feeling dizzy or lightheaded her Related Data Home Medications Medication Instructions Recorded Confirmed furosemide 20 mg PO DAILY #0 08/12/17 09/14/18 aspirin 325 mg PO DAILY 08/10/18 08/25/18 atorvastatin 80 mg PO DAILY 08/10/18 09/14/18 biotin 1,000 mcg PO DAILY 08/10/18 09/14/18 clopidogrel 75 mg PO DAILY 08/10/18 09/14/18 coenzyme Q10 [Co Q-10] 100 mg PO DAILY 08/10/18 09/14/18 diphenhydramine HCl 50 mg PO BEDTIME PRN 08/10/18 09/14/18 insulin glargine [Lantus Solostar 20 units SUBCUT QPM 08/10/18 09/14/18 U-100 Insulin] magnesium 250 mg PO DAILY 08/10/18 09/14/18 metformin 1,000 mg PO QPM 08/10/18 09/14/18 metformin 1,500 mg PO QAM 08/10/18 09/14/18 metoprolol tartrate 50 mg PO BID 08/10/18 09/14/18 naproxen sodium [Aleve] 440 mg PO QAM 08/10/18 09/14/18 omeprazole 20 mg PO DAILY 08/10/18 09/14/18 ondansetron HCl 4 mg PO Q6H PRN 08/10/18 09/14/18 trazodone 100 mg PO BEDTIME 08/10/18 09/14/18 benzonatate 1 cap PO TID PRN 08/25/18 09/14/18 diphenoxylate-atropine 1 tab PO QID PRN 08/25/18 09/14/18 glipizide 1 tab PO DAILY 08/25/18 09/14/18 losartan 50 mg PO DAILY 08/25/18 09/14/18 lovastatin 20 mg PO DAILY 09/14/18 09/14/18 oxybutynin chloride 5 mg PO BID 09/14/18 09/14/18 Previous Rx's Medication Instructions Recorded tramadol [Ultram] 50 mg PO Q6H PRN #5 tab 08/25/18 Allergies Allergy/AdvReac Type Severity Reaction Status Date / Time shellfish derived Allergy Severe anaphylaxis Verified 08/25/18 07:52 [SHELLFISH DERIVED] Penicillins [PENICILLINS] Allergy Intermediate affects Verified 08/25/18 07:52 breathing acetaminophen Allergy Unknown Verified 08/25/18 07:52 [From DARVOCET-N] morphine [MORPHINE] Allergy Unknown Verified 08/25/18 07:52 propoxyphene Allergy Unknown Verified 08/25/18 07:52 [From DARVOCET-N] Tetracyclines [TETRACYCLINES] Allergy Unknown Verified 08/25/18 07:52 ERYTHROMYCIN Allergy Mild Uncoded 08/25/18 07:52 HYDROCODONE Allergy Mild Uncoded 08/25/18 07:52 SULFA Allergy Mild Uncoded 08/25/18 07:52 Review of Systems Review of Systems All systems reviewed & are unremarkable except as noted in HPI and below Constitutional Denies chills, Reports fatigue, Denies fever(s), Reports frequent falls, Denies night sweats and Reports poor appetite Eyes Denies change in vision, Denies eye discharge, Denies irritation and Denies loss of vision Cardiovascular Denies chest pain, Denies irregular heart rhythm, Denies lightheadedness, Denies palpitations, Denies dyspnea, Denies dyspnea on exertion and Denies orthopnea Respiratory Denies cough, Denies dyspnea, Denies dyspnea on exertion and Denies wheezing Gastrointestinal Gastrointestinal: Denies abdominal pain, Denies change in bowel habits, Denies diarrhea, Denies nausea and Denies vomiting Genitourinary Denies hematuria, Denies flank pain, Denies urinary incontinence and Denies urinary urgency Musculoskeletal Reports as per HPI Integumentary/Breasts Comments: Contusion right eye Neurologic Reports as per HPI, Reports frequent falls and Denies loss of vision Endocrine Reports fatigue and Denies palpitations Hematologic/Lymphatic Reports easy bruising Allergic/Immunologic Denies wheezing Exam Initial Vital Signs Initial Vital Signs: Vital Signs Temperature 98.2 F 09/14/18 14:20 Pulse Rate 63 09/14/18 14:20 Respiratory Rate 14 09/14/18 14:20 Blood Pressure 188/85 H 09/14/18 14:20 Pulse Oximetry 99 09/14/18 14:20 Const General: cooperative and No acute distress Nutritional Appearance: well nourished Orientation: alert, awake and oriented x3 HENMT Head: normal to inspection and normocephalic Ears: hearing grossly normal bilaterally Face and sinus: abrasion on the right periorbital Eyes General: appearance normal, both eyes and all related structures Periorbital: periorbital findings abnormal right periorbital ecchymosis Neck Neck: normal visual inspection, full ROM and no meningeal signs Chest Chest: normal inspection of the chest Resp Effort & Inspection: normal respiratory effort, able to speak in complete sentences, no respiratory distress and no use of accessory muscles Auscultation: clear to auscultation bilaterally, no rales, no rhonchi and no wheezes Cardio Rate: regular rate Rhythm: regular rhythm Heart Sounds: no click, no gallops, no murmurs and no rubs Pulses: normal peripheral pulses GI Inspection: non-distended Palpation: soft, no hepatosplenomegaly, No guarding, No pulsatile mass and No tender Auscultation: normal bowel sounds Skin General: no rashes or lesions noted, ecchymosis (As described right eye), No jaundice and No petechiae Neuro General: alert, oriented x3, gait normal and no focal motor deficits Speech: speech normal Motor: No strength 5/5 throughout (Decreased strength in right arm remains unchanged per and previous notes) [facility] Medical History CVA (cerebral vascular accident) (Acute) Hyperlipidemia (Acute) Hypertension (Acute) Social History alcohol intake: never substance use type: does not use Course Orders Ordered: ED Orders 09/14/18 15:18 Complete Blood Count AUTO DIFF Stat Comprehensive Metabolic Panel Stat Prothrombin Time INR Stat Troponin I Stat 09/14/18 15:26 CT abdomen pelvis w con Stat CT facial bones wo con Stat 09/14/18 15:29 CT head/brain wo con Stat Discontinued Medications Sodium Chloride (Normal Saline 0.9%) 1,000 mls @ 150 mls/hr IV CONT JUNIOR Last Infusion: 09/14/18 18:16 Dose: 0 mls/hr Admin: 09/14/18 15:40 Dose: 150 mls/hr Vital Signs - 8 hr 09/14/18 14:20 09/14/18 17:41 Temperature 98.2 F Pulse Rate 63 70 Respiratory Rate 14 15 Blood Pressure 188/85 H Blood Pressure [Right Arm] 201/64 H Pulse Oximetry 99 99 MDM - Fall Medical Records Attestation: I reviewed the patient's medical records. Lab Data Attestation: I reviewed the patient's lab results. Result diagrams: 09/14/18 15:18 09/14/18 15:18 Lab Results 09/14/18 09/14/18 09/14/18 Range/Units 15:18 15:18 15:18 WBC 9.8 (4.5-11.0) X10^3/uL RBC 3.96 L (4.0-5.2) X10^6/uL Hgb 10.8 L (12.0-16.0) g/dL Hct 32.0 L (36-46) % MCV 80.9 (80-100) fL MCH 27.3 (26-34) PG MCHC 33.7 (30-36) % RDW 14.1 (11.6-14.8) % Plt Count 383 (150-400) X10^3/uL Neut % (Auto) 56.3 (50-75) % Lymph % (Auto) 34.3 (25-40) % [place] % (Auto) 5.8 (3-14) % Eos % (Auto) 2.4 (2-4) % Baso % (Auto) 1.2 (0-2) % Neut # (Auto) 5500 (0161-9700) /uL PT 10.8 (10.1-12.7) SECONDS INR 1.0 (0.9-1.3) Sodium 138 (137-145) mmol/L Potassium 4.2 (3.4-5.1) mmol/L Chloride 97 L (98-107) mmol/L Carbon Dioxide 26 (22-32) mmol/L BUN 16 (7-17) mg/dL Creatinine 0.90 (0.52-1.04) mg/dL Estimated GFR > 60.0 (>60) mL/min BUN/Creatinine Ratio 17.8 (6-22) Glucose 89 (80-110) mg/dL Calcium 8.8 (8.4-10.2) mg/dL Total Bilirubin 0.2 (0.2-1.3) mg/dL AST 29 (14-36) IU/L ALT 27 (9-52) IU/L Alkaline Phosphatase 67 (38-126) U/L Troponin I < 0.012 (0.01-0.034) ng/mL Total Protein 6.1 L (6.3-8.2) g/dL Albumin 3.5 (3.5-5.0) g/dL Globulin 2.6 (1.7-4.1) g/dL Albumin/Globulin Ratio 1.3 (1.0-2.8) Imaging Data CT scan - abdomen: Radiologist's impression: PROCEDURE: CT ABDOMEN PELVIS W CON INDICATIONS: Vomiting, pancreatic mass, early satiety TECHNIQUE: After the administration of intravenous contrast, 5 mm thick sections acquired from the diaphragm to the symphysis. 5 mm coronal and sagittal reformats were acquired. For radiation dose reduction, the following was used: automated exposure control, adjustment of mA and/or kV according to patient size. COMPARISON: [facility], CT, CT ANGIO CHEST PE, 05/31/2018, 13:35. [facility], CT, CT ABDOMEN WO/W CON, 07/22/2018, 11:12. [facility], CT, CT ABDOMEN PELVIS W CON, 07/15/2018, 10:28. FINDINGS: Image quality: Excellent. ABDOMEN: Lung bases: Left basilar subpleural scar. Heart size is normal. Solid organs: Liver is normal in size and enhancement. Gallbladder is normal. Biliary system is non dilated. There is a 1.1 cm hypodense nodule in pancreas at the junction of the pancreatic body and tail, unchanged in size. Spleen is normal in size and enhancement. There is a 1 cm left adrenal nodule, compatible with an adrenal adenoma based on the prior CT. A 1 cm enhancing nodules present in the right inferior pole, suspicious for neoplasm. There is a 1.5 cm diameter simple appearing cyst in the inferior pole the left kidney. Kidneys demonstrate normal size without hydronephrosis. Peritoneum and bowel: There is thickening in the air of gastric antrum. Bowel loops demonstrate normal caliber. No free fluid or air. Nodes and vessels: No retroperitoneal or mesenteric adenopathy by size criteria. Aorta and inferior vena cava are normal in size. Miscellaneous: No ventral hernias. PELVIS: Genitourinary: Bladder wall thickness is normal. Miscellaneous: No inguinal hernias or adenopathy. Bones: No suspicious bony lesions. No vertebral body compression fractures. IMPRESSION: 1. Gastric antral thickening is present, which may be secondary to peptic ulcer disease or gastritis. 2. Stable 1.1 cm low density mass in pancreas at the pancreatic body and tail junction. Please see the pancreatic protocol CT report dated 07/22/22 for detail. 3. Small enhancing nodule in the inferior pole of the right kidney suspicious for a small renal cell carcinoma. Urology consultation is recommended. 4. Stable left adrenal adenoma. Dictated by: Amarilys Hannon M.D. on 09/14/2018 at 16:48 CT scan - head: Radiologist's impression: PROCEDURE: CT HEAD/BRAIN WO CON INDICATIONS: fall facial bruising TECHNIQUE: Noncontrast 4.5 mm thick angled axial sections acquired from the foramen magnum to the vertex, with coronal and sagittal reformats. For radiation dose reduction, the following was used: automated exposure control, adjustment of mA and/or kV according to patient size. COMPARISON: [facility], CT, CT HEAD/BRAIN WO CON, 08/10/2018, 14:47. [facility], CT, CT HEAD/BRAIN WO CON, 08/25/2018, 9:37. FINDINGS: Image quality: Excellent. CSF spaces: Basal cisterns are patent. No extra-axial fluid collections. The ventricles are symmetric in size and shape. Brain: No intracranial bleeds or masses. There is moderate cerebral volume loss for age, with resultant ventricular and sulcal prominence. There are moderate to severe periventricular and deep white matter chronic small vessel ischemic changes. Old lacunar infarcts are noted in the right caudate and basal ganglia. There is intracranial internal carotid artery atherosclerosis. Skull and face: Calvarium and visualized facial bones appear intact, without suspicious lesions. Sinuses: Visualized sinuses and mastoids are clear. IMPRESSION: 1. No acute intracranial abnormalities. 2. Cerebral volume loss and chronic microvascular ischemic changes. Dictated by: Amarilys Hannon M.D. on 09/14/2018 at 16:38 CT FAce: Radiologist's impression: PROCEDURE: CT FACIAL BONES WO CON INDICATIONS: fall 3 days ago lots of brusing TECHNIQUE: Noncontrast 2.5 mm thick axial images acquired from the mandible through the frontal sinuses, with coronal and sagittal reformatting. For radiation dose reduction, the following was used: automated exposure control, adjustment of mA and/or kV according to patient size. COMPARISON: [facility], CT, CT HEAD/BRAIN WO CON, 09/14/2018, 16:13. FINDINGS: Image quality: Excellent. Bones and teeth: Small nondisplaced left nasal bone fracture is noted. Nasal septum is intact. Orbital cabrales are intact. Sinus cabrales show no fracture or deformity. Visualized portions of the mandible demonstrate no fractures or subluxation. Zygomatic arches are intact. Pterygoid plates are intact. Visualized portions of the skull base and auditory canals are intact. Degenerative disc disease is present at C5-C6 and C6-C7. Sinuses: Paranasal sinuses are aerated, without fluid levels, mucosal thickening, or mucoceles. Mastoid air cells are aerated. Soft tissues: No edema, masses, or fluid collections. No enlarged lymph nodes. No soft tissue lacerations or debris. Vascular: Visualized vascular structures appear normal in the absence of contrast. Bony vascular foramina and canals are intact. IMPRESSION: 1. A small nondisplaced left nasal bone fracture. Dictated by: Amarilys Hannon M.D. on 09/14/2018 at 16:41 ECG Data Interpretation: Normal sinus rhythm rate [address] changes no T-wave inversions similar to previous EKG MDM Narrative Medical decision making narrative: Long discussion with patient and has been. Patient seems quite content with no complaints. She does have some right arm pain occasionally. Patient is wanting her admitted he needs help at home. They do actually live with their son who tries to help and they have home health care. At this time I have explained that she does not meet criteria for observation or admission. 5:50 p.[address]. I spoke with Dr. Alberts who also agrees that she does not meet criteria observation or admission. She will have case management is still short call them in the morning to help come up with a long-term outpatient plan. I have discussed this plan with the patient and her . Patient is ambulatory with a walker she is able to do so on her own though she needs to move slowly so that he does not fall she does not always follow directions. Patient has not been vomiting tolerating oral fluids. Discharge Plan Departure Patient Disposition: Home Clinical Impression: Weakness Discharge Date/Time: 09/14/18 18:25 Interventions: ED Discharge Assessment Last Done: 09/14/18 18:24 Instructions: DI for Muscle Weakness Activity Restrictions/Additional Instructions: Tomorrow a case management/social services aide from [facility] will be calling in to help set up tank terminal gauger care. At this time you do not need inpatient for observation criteria *You have been diagnosed with weakness *Continue to take medications as directed *Follow up with your primary care provider in 2-3 days *Return to ER if you should have increasing falls, confusion, or any new, worsening or concerning symptoms Prescriptions: No Action furosemide 20 MG tablet 20 mg PO DAILY Qty: 0 RF: 0 metformin 500 mg tablet 1,500 mg PO QAM RF: 0 metformin 500 mg tablet 1,000 mg PO QPM RF: 0 atorvastatin 80 mg tablet 80 mg PO DAILY RF: 0 diphenhydramine HCl 50 mg Capsule 50 mg PO BEDTIME PRN (Reason: Sleep) RF: 0 aspirin 325 mg Tablet 325 mg PO DAILY RF: 0 ondansetron HCl 4 mg tablet 4 mg PO Q6H PRN (Reason: Nausea) RF: 0 clopidogrel 75 mg tablet 75 mg PO DAILY RF: 0 trazodone 100 mg tablet 100 mg PO BEDTIME RF: 0 naproxen sodium [Aleve] 220 mg Tablet 440 mg PO QAM RF: 0 metoprolol tartrate 50 mg tablet 50 mg PO BID RF: 0 omeprazole 20 mg Capsule,Delayed Release(Dr/Ec) 20 mg PO DAILY RF: 0 magnesium 250 mg Tablet 250 mg PO DAILY RF: 0 coenzyme Q10 [Co Q-10] 100 mg Capsule 100 mg PO DAILY RF: 0 insulin glargine [Lantus Solostar U-100 Insulin] 100 unit/mL (3 mL) insulin pen 20 units subcut QPM RF: 0 biotin 1,000 mcg Tablet,Chewable 1,000 mcg PO DAILY RF: 0 losartan 50 mg tablet 50 mg PO DAILY RF: 0 diphenoxylate-atropine 2.5-0.025 mg tablet 1 tab PO QID PRN (Reason: Diarrhea) RF: 0 benzonatate 100 mg capsule 1 cap PO TID PRN (Reason: Cough) RF: 0 glipizide 5 mg tablet 1 tab PO DAILY RF: 0 tramadol [Ultram] 50 mg tablet 50 mg PO Q6H PRN (Reason: pain) Qty: 5 RF: 0 lovastatin 20 mg tablet 20 mg PO DAILY RF: 0 oxybutynin chloride 5 mg tablet 5 mg PO BID RF: 0 Referrals: Esteban Pressley MD [Primary Care Provider] -
[2018-09-14 15:39] LABS: Add Manual Diff / Slide Review NO; Basophils Percent Auto 1.2 % (0-2); Eosinophils Percent Auto 2.4 % (2-4); Hemoglobin 10.8 g/dL (12.0-16.0); Lymphocytes Percent Auto 34.3 % (25-40); Mean Corpuscular HGB Conc 33.7 % (30-36); Mean Corpuscular Hemoglobin 27.3 PG (26-34); Mean Corpuscular Volume 80.9 fL (80-100); Monocytes Percent Auto 5.8 % (3-14); Neutrophils Absolute Auto 5500 /uL (3000-5900); Neutrophils Percent Auto 56.3 % (50-75); Platelet Count 383 X10^3/uL (150-400); Red Blood Cell Count 3.96 X10^6/uL (4.0-5.2); Red Cell Distribution Width 14.1 % (11.6-14.8); White Blood Cell Count 9.8 X10^3/uL (4.5-11.0)
[2018-09-14 15:40] LABS: Prothrombin Time 10.8 SECONDS (10.1-12.7)
[2018-09-14] MEDS: SODIUM CHLORIDE 0.9% 1,000 ML 150 ML IV (15:40)
[2018-09-14 15:46] LABS: Alanine Aminotransferase 27 IU/L (9-52); Albumin 3.5 g/dL (3.5-5.0); Albumin Globulin Ratio 1.3 (1.0-2.8); Alkaline Phosphatase 67 U/L (38-126); Aspartate Aminotransferase 29 IU/L (14-36); BUN Creatinine Ratio 17.8 (6-22); Bilirubin Total 0.2 mg/dL (0.2-1.3); Blood Urea Nitrogen 16 mg/dL (7-17); Calcium 8.8 mg/dL (8.4-10.2); Carbon Dioxide 26 mmol/L (22-32); Chloride 97 mmol/L (98-107); Estimated Glomerular Filt Rate > 60.0 mL/min (>60); Globulin 2.6 g/dL (1.7-4.1); Glucose 89 mg/dL (80-110); HEMOLYSIS 27 (0-50); Potassium 4.2 mmol/L (3.4-5.1); Sodium 138 mmol/L (137-145); Total Protein 6.1 g/dL (6.3-8.2)
[2018-09-14 15:58] LABS: Troponin I < 0.012 ng/mL (0.01-0.034)
[2018-09-14 17:41] VITALS: BP 201/64; PULSE 70; RESP 15; O2SAT 99
--- NOTE | 2018-09-14 17:59 | PC.NURSE ---
pt able to walk with walker, pt needs reminding to slow down.
== END 2018-09-14 18:25 | disposition home or self-care (01) ==
PROVIDERS: Emergency Provider Emergency Medicine; PCP Family Medicine
DX: R53.1 Weakness (principal)
CPT/HCPCS: 36591; 70450; 70486; 74177; 80053; 84484; 85025; 85610; 93005; 96360; 96361; 99283; 99285; Q9967

== ENCOUNTER 2021-07-07 14:59 | Emergency (ER) | payer MEDICARE, MEDICAID, SELFPAY ==
[2021-07-07] VITALS (8 sets, daily range): BP systolic 171–188; BP diastolic 76–100; PULSE 70–87; RESP 15–30; TEMP 36.6; O2SAT 94–97
--- NOTE | 2021-07-07 15:26 | DI.RAD.S_ITS ---
PROCEDURE: XR CHEST 1V INDICATIONS: chest pain TECHNIQUE: One view of the chest was acquired. COMPARISON: [facility], CT, CT ABDOMEN PELVIS WITHOUT CONTRAST, 05/06/2021, 14:04. [facility], CR, XR CHEST 1 VIEW, 06/11/2018, 9:00. [facility], CR, XR CHEST 1 VIEW, 09/30/2018, 8:36. [facility], CR, CHEST 1 VIEW, 08/12/2017, 6:12. FINDINGS: Surgical changes and devices: Upper abdominal clips are partially seen. Lungs and pleura: Lungs are clear. No pleural effusions or pneumothorax. Mediastinum: Mediastinal contours appear normal. Heart size is normal. Bones and chest wall: No suspicious bony lesions. Age-appropriate bony degenerative changes are seen. S-shaped scoliotic curvature is seen. Overlying soft tissues appear unremarkable. IMPRESSION: Clear lungs. Dictated by: Ketan Johns M.D. on 07/07/2021 at 15:05 Approved by: Ketan Johns M.D. on 07/07/2021 at 15:06
--- NOTE | 2021-07-07 16:03 | ED_ITS ---
HPI - Altered Mental Status General Chief Complaint: Abdominal Pain Stated Complaint: Stomach Issues,Aches from Waist Up,Can't Stand Up Time Seen by Provider: 07/07/21 15:40 Source: patient and family Mode of arrival: Wheelchair History of Present Illness HPI narrative: Patient is a 70-year-old female history of CVA, diabetes, frequent UTI she has long-term care facilities according to . She has had significant foreign exchange trader the last 2-3 days. He says definitely over the last 10 days she has had decreased appetite she has had intermittent nausea off no vomiting. She currently feels well vomiting now. She at some point had a bdominal pain but does not have any abdominal pain now. She overall is an extremely poor historian. She has actually had 3 COVID vaccinations, the long- term care facility had small outbreak and she got a booster. Related Data Home Medications Medication Instructions Recorded Confirmed furosemide 20 mg tablet 20 mg PO DAILY #0 08/12/17 09/14/18 aspirin 325 mg tablet 325 mg PO DAILY 08/10/18 08/25/18 atorvastatin 80 mg tablet 80 mg PO DAILY 08/10/18 09/14/18 biotin 1,000 mcg chewable tablet 1,000 mcg PO DAILY 08/10/18 09/14/18 clopidogrel 75 mg tablet 75 mg PO DAILY 08/10/18 09/14/18 coenzyme Q10 100 mg capsule (Co 100 mg PO DAILY 08/10/18 09/14/18 Q-10) diphenhydramine HCl 50 mg capsule 50 mg PO BEDTIME PRN 08/10/18 09/14/18 insulin glargine 100 unit/mL (3 20 units SUBCUT QPM 08/10/18 09/14/18 mL) subcutaneous pen magnesium 250 mg tablet 250 mg PO DAILY 08/10/18 09/14/18 metformin 500 mg tablet 1,000 mg PO QPM 08/10/18 09/14/18 metformin 500 mg tablet 1,500 mg PO QAM 08/10/18 09/14/18 metoprolol tartrate 50 mg tablet 50 mg PO BID 08/10/18 09/14/18 naproxen sodium 220 mg tablet 440 mg PO QAM 08/10/18 09/14/18 (Aleve) omeprazole 20 mg capsule,delayed 20 mg PO DAILY 08/10/18 09/14/18 release ondansetron HCl 4 mg tablet 4 mg PO Q6H PRN 08/10/18 09/14/18 trazodone 100 mg tablet 100 mg PO BEDTIME 08/10/18 09/14/18 benzonatate 100 mg capsule 1 cap PO TID PRN 08/25/18 09/14/18 diphenoxylate-atropine 2.5 1 tab PO QID PRN 08/25/18 09/14/18 mg-0.025 mg tablet glipizide 5 mg tablet 1 tab PO DAILY 08/25/18 09/14/18 losartan 50 mg tablet 50 mg PO DAILY 08/25/18 09/14/18 lovastatin 20 mg tablet 20 mg PO DAILY 09/14/18 09/14/18 oxybutynin chloride 5 mg tablet 5 mg PO BID 09/14/18 09/14/18 Previous Rx's Medication Instructions Recorded tramadol 50 mg tablet (Ultram) 50 mg PO Q6H PRN #5 tab 08/25/18 ciprofloxacin HCl 500 mg tablet 500 mg PO BID #14 tab 07/07/21 (Cipro) Allergies Allergy/AdvReac Type Severity Reaction Status Date / Time shellfish derived Allergy Severe anaphylaxis Verified 08/25/18 07:52 [SHELLFISH DERIVED] Penicillins [PENICILLINS] Allergy Intermediate affects Verified 08/25/18 07:52 breathing acetaminophen Allergy Unknown Verified 08/25/18 07:52 [From DARVOCET-N] morphine [MORPHINE] Allergy Unknown Verified 08/25/18 07:52 propoxyphene Allergy Unknown Verified 08/25/18 07:52 [From DARVOCET-N] Tetracyclines [TETRACYCLINES] Allergy Unknown Verified 08/25/18 07:52 ERYTHROMYCIN Allergy Mild Uncoded 08/25/18 07:52 HYDROCODONE Allergy Mild Uncoded 08/25/18 07:52 SULFA Allergy Mild Uncoded 08/25/18 07:52 Review of Systems Review of Systems ROS Unobtainable: All systems reviewed & are unremarkable except as noted in HPI and below Constitutional Constitutional: Denies body ache(s), Denies chills, Reports fatigue, Denies fever(s), Denies increased appetite and Reports poor appetite ENT Ears, Nose, Mouth, and Throat: Denies dizziness Cardiovascular Cardiovascular: Denies chest pain and Denies lightheadedness Respiratory Respiratory: Denies chest congestion and Denies cough Gastrointestinal Gastrointestinal: Reports as per HPI Musculoskeletal Musculoskeletal: Denies back pain and Denies myalgias Integumentary/Breasts Skin/Breast: Denies rash Neurologic Neurologic: Denies dizziness Psychiatric Psychiatric: Denies anxiety Endocrine Endocrine: Reports fatigue Patient History Medical History (Updated 07/07/21 @ 18:37 by Patrica Sargent DO) CVA (cerebral vascular accident) Hyperlipidemia Hypertension Social History Smoking Status: Former smoker alcohol intake: never substance use type: does not use Smoking Status: Former smoker Exam Initial Vital Signs Initial Vital Signs: Vital Signs Temperature 97.8 F 07/07/21 15:12 Pulse Rate 87 07/07/21 15:12 Respiratory Rate 22 07/07/21 15:12 Blood Pressure 183/84 H 07/07/21 15:12 Pulse Oximetry 95 07/07/21 15:12 GENERAL: Alert 70-year-old female appears older than stated age appears very weak HEENT: Head atraumatic,EOMI, pupils reactive, face symmetric, very drymucous membranes CARDIOVASCULAR: Regular rate and rhythm without murmurs, rubs or gallops. RESPIRATORY: Breath sounds equal bilaterally, no wheezes rales or rhonchi. ABDOMEN: Soft, nontender. Normoactive bowel sounds all 4 quadrants. No guarding or rebound. EXTREMITIES: Normal range of motion, no clubbing or edema. Neurovascularly intact NEUROLOGICAL: Alert and oriented x2 SKIN: Warm, dry, no laceration, no petechiae, no rashes or lesions. Course Orders Ordered: ED Orders 07/07/21 15:26 XR chest 1V Stat EKG-12 Lead Stat 07/07/21 16:05 CT abdomen pelvis w con Stat 07/07/21 16:13 Complete Blood Count AUTO DIFF Stat Comprehensive Metabolic Panel Stat Lactate (Lactic Acid) Stat Lipase Stat Procalcitonin Stat Prothrombin Time INR Stat Troponin & CK Cardiac Panel Stat 07/07/21 16:35 Blood Culture Stat Ictotest Urine Stat UA Complete [Urinalysis and Microscopic] Stat Urine Culture Stat 07/07/21 16:39 COVID19 -Nasal swab/Pre-Proc Stat Sodium Chloride (Normal Saline 0.9%) 1,000 mls @ 150 mls/hr IV CONT JUNIOR Last Admin: 07/07/21 16:46 Dose: 150 mls/hr Documented by: BTONER Discontinued Medications Albuterol (Albuterol 2.5 Mg/3 Ml Neb (Adult)) 2.5 mg INH NOW ONE Stop: 07/07/21 19:02 Levofloxacin (Levofloxacin 250 Mg Tablet) 750 mg PO NOW ONE Stop: 07/07/21 18:35 Last Admin: 07/07/21 18:42 Dose: 750 mg Documented by: NARAYAN Vital Signs Vital signs: Vital Signs - 8 hr 07/07/21 15:12 07/07/21 16:47 07/07/21 17:00 Temperature 97.8 F Pulse Rate 87 79 75 Respiratory Rate 22 15 21 Blood Pressure 183/84 H 178/84 H 181/85 H Pulse Oximetry 95 96 94 07/07/21 17:30 07/07/21 18:00 07/07/21 18:30 Temperature Pulse Rate 70 73 74 Respiratory Rate 30 H 20 Blood Pressure 180/76 H 183/78 H 181/81 H Pulse Oximetry 97 97 97 07/07/21 19:00 Temperature Pulse Rate 77 Respiratory Rate 20 Blood Pressure 188/100 H Pulse Oximetry 96 MDM - Altered Mental Status Lab Data Result diagrams: 07/07/21 16:13 07/07/21 16:13 Labs: Lab Results 07/07/21 07/07/21 07/07/21 Range/Units 16:13 16:13 16:13 WBC 7.2 (4.5-11.0) X10^3/uL RBC 3.76 L (4.0-5.2) X10^6/uL Hgb 10.8 L (12.0-16.0) g/dL Hct 32.7 L (36-46) % MCV 86.7 (80-100) fL MCH 28.6 (26-34) PG MCHC 33.0 (30-36) % RDW 14.6 (11.6-14.8) % Plt Count 295 (150-400) X10^3/uL Neut % (Auto) 63.2 (50-75) % Lymph % (Auto) 24.4 L (25-40) % [place] % (Auto) 7.2 (3-14) % Eos % (Auto) 3.8 (2-4) % Baso % (Auto) 1.4 (0-2) % Neut # (Auto) 4600 (8796-9149) /uL Lymph # (Auto) 1800 (8216-5989) /uL [place] # (Auto) 500 (0-900) /uL Eos # (Auto) 300 (0-450) /uL Baso # (Auto) 100 (0-100) /uL PT 14.8 H (10.1-12.7) SECONDS INR 1.3 (0.9-1.3) Sodium 139 (137-145) mmol/L Potassium 4.0 (3.4-5.1) mmol/L Chloride 105 (98-107) mmol/L Carbon Dioxide 19 L (22-32) mmol/L BUN 15 (7-17) mg/dL Creatinine 1.36 H (0.52-1.04) mg/dL Estimated GFR 38.4 L (>60) mL/min BUN/Creatinine Ratio 11.0 (6-22) Glucose 126 H (80-110) mg/dL Lactate (0.7-2.1) mmol/L Calcium 9.1 (8.4-10.2) mg/dL Total Bilirubin 0.4 (0.2-1.3) mg/dL AST 19 (14-36) IU/L ALT 9 (<35) IU/L Alkaline Phosphatase 98 (38-126) U/L Total Creatine Kinase 51 (30-135) U/L CK-MB (CK-2) TNP CK-MB (CK-2) Rel Index TNP Troponin I 0.013 (0.01-0.034) ng/mL Total Protein 6.5 (6.3-8.2) g/dL Albumin 3.4 L (3.5-5.0) g/dL Globulin 3.1 (1.7-4.1) g/dL Albumin/Globulin Ratio 1.1 (1.0-2.8) Lipase 110 (23-300) U/L Procalcitonin 0.06 (<0.5) ng/mL Urine Color Urine Appearance Urine pH (4.5-8.0) Ur Specific [place] (1.000-1.035) Urine Protein (Negative) Urine Glucose (UA) (Negative) g/dL Urine Ketones (NEGATIVE) Urine Occult Blood (Negative) Urine Nitrate (Negative) Urine Bilirubin (NEGATIVE) Ur Bilirubin Confirm (Negative) Urine Urobilinogen (0.2) E.U./dL Ur Leukocyte Esterase (NEGATIVE) Urine RBC (0-5/HPF) Urine WBC (0-5/HPF) Ur Squamous Epith Cells (0-5/HPF) Ur Transition Epith Cell (0-5/HPF) Urine Bacteria (None) Hyaline Casts (None) Urine Mucus (Negative) Ur Culture Indicated? SARS-CoV-2 (PCR) (Negative) 07/07/21 07/07/21 07/07/21 Range/Units 16:13 16:35 16:39 WBC (4.5-11.0) X10^3/uL RBC (4.0-5.2) X10^6/uL Hgb (12.0-16.0) g/dL Hct (36-46) % MCV (80-100) fL MCH (26-34) PG MCHC (30-36) % RDW (11.6-14.8) % Plt Count (150-400) X10^3/uL Neut % (Auto) (50-75) % Lymph % (Auto) (25-40) % [place] % (Auto) (3-14) % Eos % (Auto) (2-4) % Baso % (Auto) (0-2) % Neut # (Auto) (8472-8075) /uL Lymph # (Auto) (2438-9842) /uL [place] # (Auto) (0-900) /uL Eos # (Auto) (0-450) /uL Baso # (Auto) (0-100) /uL PT (10.1-12.7) SECONDS INR (0.9-1.3) Sodium (137-145) mmol/L Potassium (3.4-5.1) mmol/L Chloride (98-107) mmol/L Carbon Dioxide (22-32) mmol/L BUN (7-17) mg/dL Creatinine (0.52-1.04) mg/dL Estimated GFR (>60) mL/min BUN/Creatinine Ratio (6-22) Glucose (80-110) mg/dL Lactate 0.8 (0.7-2.1) mmol/L Calcium (8.4-10.2) mg/dL Total Bilirubin (0.2-1.3) mg/dL AST (14-36) IU/L ALT (<35) IU/L Alkaline Phosphatase (38-126) U/L Total Creatine Kinase (30-135) U/L CK-MB (CK-2) CK-MB (CK-2) Rel Index Troponin I (0.01-0.034) ng/mL Total Protein (6.3-8.2) g/dL Albumin (3.5-5.0) g/dL Globulin (1.7-4.1) g/dL Albumin/Globulin Ratio (1.0-2.8) Lipase (23-300) U/L Procalcitonin (<0.5) ng/mL Urine Color Yellow Urine Appearance Cloudy Urine pH 5.0 (4.5-8.0) Ur Specific [place] 1.025 (1.000-1.035) Urine Protein 3+ H (Negative) Urine Glucose (UA) Negative (Negative) g/dL Urine Ketones 1+ H (NEGATIVE) Urine Occult Blood Negative (Negative) Urine Nitrate Negative (Negative) Urine Bilirubin 1+ H (NEGATIVE) Ur Bilirubin Confirm Negative (Negative) Urine Urobilinogen 0.2 (0.2) E.U./dL Ur Leukocyte Esterase Trace H (NEGATIVE) Urine RBC 0-1/hpf (0-5/HPF) Urine WBC 5-10/hpf H (0-5/HPF) Ur Squamous Epith Cells 1-5 /hpf (0-5/HPF) Ur Transition Epith Cell 1-5/hpf (0-5/HPF) Urine Bacteria Many (>30) H (None) Hyaline Casts 5-10/lpf (None) Urine Mucus 1+ H (Negative) Ur Culture Indicated? Specimen cultured SARS-CoV-2 (PCR) Negative (Negative) Imaging Data CT scan - abdomen/pelvis: Radiologist's Impression: PROCEDURE:? CT ABDOMEN PELVIS W CON ? INDICATIONS:? nausea, pain ? TECHNIQUE:? After the administration of oral and IV contrast, axial sections were acquired from the lung bases to the pubic symphysis.? Coronal and sagittal reformats were performed.? For radiation dose reduction, the following was used:? automated exposure control, adjustment of mA and/or kV according to patient size. ? COMPARISON:? [facility], CT, CT ABDOMEN PELVIS W CON, 07/15/2018, 10:28.? [facility], CT, CT ABDOMEN PELVIS WITHOUT CONTRAST, 05/06/2021, 14:04.? [facility], US, US RENAL COMPLETE, 05/09/2021, 18:38.? [facility], MR, MR ANGIO ABDOMEN, 05/10/2021, 12:10.? [facility], CT, CT ABDOMEN PELVIS W CON, 09/14/2018, 16:13. ? FINDINGS:? Image quality:? This examination is limited by involuntary motion artifact.? Images are repeated, yet without significant improvement.? ? Lung bases:? Mild dependent atelectasis can be seen. Heart:? No significant findings.? There is at least moderate coronary artery calcification.? There is a small pericardial effusion. ? ? ABDOMEN: Liver:? Unremarkable.? ? Gallbladder:? Unremarkable.? ? Biliary ducts:? Unremarkable.? ? Pancreas:? A low-density lesion is partially seen within the pancreas, as before. Spleen:? Unremarkable.? ? Adrenal Glands:? Generalized adrenal gland thickening can be seen, yet without focal nodules. Kidneys and Ureters:? Along the posterior aspect of the right kidney, there is a partially enhancing mass seen, which now measures 2.5 cm.? The kidneys otherwise demonstrate an unremarkable appearance, without hydronephrosis.? A stable likely simple cyst can be seen along the left kidney posteriorly. ? Stomach and Bowel:? Proximal gastric wall thickening can be seen, as on series 2, image 25. No dilated loops of small bowel are seen.? Moderate to prominent stool can be seen within the colon.? Postoperative clips can be seen throughout the anterior abdomen. Peritoneum:? No abnormal intraperitoneal fluid.? No free air.? ? Ventral Wall: ? No hernia.? Abdominal Nodes:? No retroperitoneal or mesenteric adenopathy by size criteria.? Vessels:? Aorta and inferior vena cava are normal in size.? Atherosclerotic calcification can again be seen throughout. ? PELVIS: Pelvic Organs:? Unremarkable.? ? Bladder:? Unremarkable.? ? Pelvic Nodes: No enlarged lymph nodes.? Miscellaneous: No inguinal hernias are seen. ? ? ? Bones:? Age-appropriate bony degenerative changes are seen.? ? ? IMPRESSION:? Motion limited study, without a negrito, acute abnormality seen. ? Enhancing right renal mass seen, which has increased in size over time and is highly suspicious for a renal cell carcinoma. ? There is a moderate to prominent amount of stool seen within the colon. Please c orrelate with an underlying history of constipation.? ? Proximal gastric wall thickening can be seen.? Please consider gastritis versus neoplasm. ? Small pericardial effusion. ? The patient's known pancreatic lesion is again seen, which is poorly visualized on this study. ? ? Incidental note is made of: At least moderate coronary artery calcification Generalized adrenal gland thickening, without focal nodules Postoperative clips of the anterior abdomen ? ? Dictated by: Ketan Johns M.D. on 07/07/2021 at 16:46 ? ? Approved by: Ketan Johns M.D. on 07/07/2021 at 16:53 ? Chest x-ray: Radiologist's Impression: PROCEDURE:? XR CHEST 1V ? INDICATIONS:? chest pain ? TECHNIQUE:? One view of the chest was acquired.? ? COMPARISON:? [facility], CT, CT ABDOMEN PELVIS WITHOUT CONTRAST, 05/06/2021, 14:04.? [facility], CR, XR CHEST 1 VIEW, 06/11/2018, 9:00.? [facility], CR, XR CHEST 1 VIEW, 09/30/2018, 8:36.? [facility], CR, CHEST 1 VIEW, 08/12/2017, 6:12. ? FINDINGS:? ? Surgical changes and devices:? Upper abdominal clips are partially seen. ? Lungs and pleura:? Lungs are clear.? No pleural effusions or pneumothorax.? ? Mediastinum:? Mediastinal contours appear normal.? Heart size is normal.? ? Bones and chest wall:? No suspicious bony lesions.? Age-appropriate bony degenerative changes are seen.? S-shaped scoliotic curvature is seen. ? Overlying soft tissues appear unremarkable.? IMPRESSION:? Clear lungs. ? ? Dictated by: Ketan Johns M.D. on 07/07/2021 at 15:05 ? ECG Data Interpretation: Normal sinus rhythm rate 72 NH interval 176 QRS [address] change MDM Narrative Medical decision making narrative: She patient overall appears weak slightly dehydrated however no leukocytosis or signs of severe sepsis. She is found to have UTI. She has multiple allergies to medications. She is given Levaquin orally. Patient states the soon as she swallowed Levaquin she had a hard time breathing. She was assessed immediately by nursing staff she has no sign of anaphylaxis and lungs are clear. I have reassessed her and this remains true. CT did show renal mass which was present previously and patient and family knew about. They have not yet followed upper had any biopsies. Have expressed to them concern for cancer and need for follow-up. At this time patient does not meet admission criteria, and will return to [facility] facility. Discharge Plan Departure Patient Disposition: Home Clinical Impression: Acute UTI Instructions: DI for Urinary Tract Infection (UTI) Activity Restrictions/Additional Instructions: *You have been diagnosed with UTI *What to do: At this time his found that you have a bladder infection which may be causing the increased weakness. There is also a mass on the kidney is which was there before please follow-up there is possible concern for cancer *Continue to take medications as directed Cipro 500 mg twice a day for 7 days *Follow up with your primary care provider in 2-3 days *Return to ER if you should have increasing confusion, weaknessor any new, worsening or concerning symptoms Prescriptions: New ciprofloxacin HCl [Cipro] 500 mg tablet 500 mg PO BID Qty: 14 RF: 0 No Action furosemide 20 MG tablet 20 mg PO DAILY Qty: 0 RF: 0 metformin 500 mg tablet 1,500 mg PO QAM RF: 0 metformin 500 mg tablet 1,000 mg PO QPM RF: 0 atorvastatin 80 mg tablet 80 mg PO DAILY RF: 0 diphenhydramine HCl 50 mg Capsule 50 mg PO BEDTIME PRN (Reason: Sleep) RF: 0 aspirin 325 mg Tablet 325 mg PO DAILY RF: 0 ondansetron HCl 4 mg tablet 4 mg PO Q6H PRN (Reason: Nausea) RF: 0 clopidogrel 75 mg tablet 75 mg PO DAILY RF: 0 trazodone 100 mg tablet 100 mg PO BEDTIME RF: 0 naproxen sodium [Aleve] 220 mg Tablet 440 mg PO QAM RF: 0 metoprolol tartrate 50 mg tablet 50 mg PO BID RF: 0 omeprazole 20 mg Capsule,Delayed Release(Dr/Ec) 20 mg PO DAILY RF: 0 magnesium 250 mg Tablet 250 mg PO DAILY RF: 0 coenzyme Q10 [Co Q-10] 100 mg Capsule 100 mg PO DAILY RF: 0 insulin glargine [Lantus Solostar U-100 Insulin] 100 unit/mL (3 mL) insulin pen 20 units subcut QPM RF: 0 biotin 1,000 mcg Tablet,Chewable 1,000 mcg PO DAILY RF: 0 losartan 50 mg tablet 50 mg PO DAILY RF: 0 diphenoxylate-atropine 2.5-0.025 mg tablet 1 tab PO QID PRN (Reason: Diarrhea) RF: 0 benzonatate 100 mg capsule 1 cap PO TID PRN (Reason: Cough) RF: 0 glipizide 5 mg tablet 1 tab PO DAILY RF: 0 tramadol [Ultram] 50 mg tablet 50 mg PO Q6H PRN (Reason: pain) Qty: 5 RF: 0 lovastatin 20 mg tablet 20 mg PO DAILY RF: 0 oxybutynin chloride 5 mg tablet 5 mg PO BID RF: 0 Referrals: Esteban Pressley MD [Primary Care Provider] -
--- NOTE | 2021-07-07 16:05 | DI.CT.S_ITS ---
PROCEDURE: CT ABDOMEN PELVIS W CON INDICATIONS: nausea, pain TECHNIQUE: After the administration of oral and IV contrast, axial sections were acquired from the lung bases to the pubic symphysis. Coronal and sagittal reformats were performed. For radiation dose reduction, the following was used: automated exposure control, adjustment of mA and/or kV according to patient size. COMPARISON: [facility], CT, CT ABDOMEN PELVIS W CON, 07/15/2018, 10:28. [facility], CT, CT ABDOMEN PELVIS WITHOUT CONTRAST, 05/06/2021, 14:04. [facility], US, US RENAL COMPLETE, 05/09/2021, 18:38. [facility], MR, MR ANGIO ABDOMEN, 05/10/2021, 12:10. [facility], CT, CT ABDOMEN PELVIS W CON, 09/14/2018, 16:13. FINDINGS: Image quality: This examination is limited by involuntary motion artifact. Images are repeated, yet without significant improvement. Lung bases: Mild dependent atelectasis can be seen. Heart: No significant findings. There is at least moderate coronary artery calcification. There is a small pericardial effusion. ABDOMEN: Liver: Unremarkable. Gallbladder: Unremarkable. Biliary ducts: Unremarkable. Pancreas: A low-density lesion is partially seen within the pancreas, as before. Spleen: Unremarkable. Adrenal Glands: Generalized adrenal gland thickening can be seen, yet without focal nodules. Kidneys and Ureters: Along the posterior aspect of the right kidney, there is a partially enhancing mass seen, which now measures 2.5 cm. The kidneys otherwise demonstrate an unremarkable appearance, without hydronephrosis. A stable likely simple cyst can be seen along the left kidney posteriorly. Stomach and Bowel: Proximal gastric wall thickening can be seen, as on series 2, image 25. No dilated loops of small bowel are seen. Moderate to prominent stool can be seen within the colon. Postoperative clips can be seen throughout the anterior abdomen. Peritoneum: No abnormal intraperitoneal fluid. No free air. Ventral Wall: No hernia. Abdominal Nodes: No retroperitoneal or mesenteric adenopathy by size criteria. Vessels: Aorta and inferior vena cava are normal in size. Atherosclerotic calcification can again be seen throughout. PELVIS: Pelvic Organs: Unremarkable. Bladder: Unremarkable. Pelvic Nodes: No enlarged lymph nodes. Miscellaneous: No inguinal hernias are seen. Bones: Age-appropriate bony degenerative changes are seen. IMPRESSION: Motion limited study, without a negrito, acute abnormality seen. Enhancing right renal mass seen, which has increased in size over time and is highly suspicious for a renal cell carcinoma. There is a moderate to prominent amount of stool seen within the colon. Please correlate with an underlying history of constipation. Proximal gastric wall thickening can be seen. Please consider gastritis versus neoplasm. Small pericardial effusion. The patient's known pancreatic lesion is again seen, which is poorly visualized on this study. Incidental note is made of: At least moderate coronary artery calcification Generalized adrenal gland thickening, without focal nodules Postoperative clips of the anterior abdomen Dictated by: Ketan Johns M.D. on 07/07/2021 at 16:46 Approved by: Ketan Johns M.D. on 07/07/2021 at 16:53
[2021-07-07 16:21] LABS: Add Manual Diff / Slide Review NO; Basophils Absolute Auto 100 /uL (0-100); Basophils Percent Auto 1.4 % (0-2); Eosinophils Absolute Auto 300 /uL (0-450); Eosinophils Percent Auto 3.8 % (2-4); Hematocrit 32.7 % (36-46); Hemoglobin 10.8 g/dL (12.0-16.0); Lymphocytes Absolute Auto 1800 /uL (1100-4500); Lymphocytes Percent Auto 24.4 % (25-40); Mean Corpuscular Hemoglobin 28.6 PG (26-34); Mean Corpuscular Volume 86.7 fL (80-100); Monocytes Absolute Auto 500 /uL (0-900); Monocytes Percent Auto 7.2 % (3-14); Neutrophils Absolute Auto 4600 /uL (1500-7000); Neutrophils Percent Auto 63.2 % (50-75); Platelet Count 295 X10^3/uL (150-400); Red Blood Cell Count 3.76 X10^6/uL (4.0-5.2); Red Cell Distribution Width 14.6 % (11.6-14.8); White Blood Cell Count 7.2 X10^3/uL (4.5-11.0)
[2021-07-07 16:30] LABS: INR 1.3 (0.9-1.3); Prothrombin Time 14.8 SECONDS (10.1-12.7)
[2021-07-07 16:37] LABS: Alanine Aminotransferase 9 IU/L (<35); Albumin 3.4 g/dL (3.5-5.0); Albumin Globulin Ratio 1.1 (1.0-2.8); Alkaline Phosphatase 98 U/L (38-126); Aspartate Aminotransferase 19 IU/L (14-36); Bilirubin Total 0.4 mg/dL (0.2-1.3); Blood Urea Nitrogen 15 mg/dL (7-17); Calcium 9.1 mg/dL (8.4-10.2); Carbon Dioxide 19 mmol/L (22-32); Chloride 105 mmol/L (98-107); Creatine Kinase 51 U/L (30-135); Estimated Glomerular Filt Rate 38.4 mL/min (>60); Globulin 3.1 g/dL (1.7-4.1); Glucose 126 mg/dL (80-110); HEMOLYSIS < 15 (0-50); Lactate (Lactic Acid) 0.8 mmol/L (0.7-2.1); Lipase 110 U/L (23-300); Sodium 139 mmol/L (137-145); Total Protein 6.5 g/dL (6.3-8.2)
[2021-07-07] MEDS: SODIUM CHLORIDE 0.9% 1,000 ML 150 ML IV (16:46)
[2021-07-07 16:47] LABS: Troponin I 0.013 ng/mL (0.01-0.034)
[2021-07-07 16:49] LABS: Appearance Urine UA CLOUDY; Bilirubin Urine UA 1+ (NEGATIVE); Color Urine UA YELLOW; Glucose Urine UA NEGATIVE (Negative); Ketones Urine UA 1+ (NEGATIVE); Leukocyte Esterase Urine UA TRACE (NEGATIVE); Nitrite Urine UA NEGATIVE (Negative); Occult Blood Urine UA NEGATIVE (Negative); Protein Urine UA 3+ (Negative); Specific Gravity Urine UA 1.025 (1.000-1.035); Urobilinogen Urine UA 0.2 E.U./dL (0.2)
[2021-07-07 16:52] LABS: Procalcitonin 0.06 ng/mL (<0.5)
[2021-07-07 16:56] LABS: Bacteria Urine Many (>30); Culture Indicated Urine Specimen Cultured; Hyaline Casts Urine 5-10/LPF; Ictotest Urine Negative (Negative); Mucus Urine 1+ (Negative); RBC Urine 0-1/HPF (0-5/HPF); Squamous Epithelial Cell Urine 1-5 /HPF (0-5/HPF); Transitional Epi Cells Urine 1-5/HPF (0-5/HPF); WBC Urine 5-10/HPF (0-5/HPF)
[2021-07-07 17:10] LABS: COVID19 -Nasal RAPID Negative (Negative)
[2021-07-07] MEDS: levoFLOXacin 250 MG TABLET 750 MG PO (18:42)
[2021-07-12 16:18] LABS: Acinetobacter baumannii Not Detected (Not Detect); Candida albicans Not Detected (Not Detect); Candida glabrata Not Detected (Not Detect); Candida krusei Not Detected (Not Detect); E. coli Not Detected (Not Detect); Enterobacter cloacae complex Not Detected (Not Detect); Enterobacteriaceae species Not Detected (Not Detect); Enterococcus species Not Detected (Not Detect); Haemophilus influenzae Not Detected (Not Detect); Listeria monocytogenes Not Detected (Not Detect); Neisseria meningitidis Not Detected (Not Detect); Proteus species Not Detected (Not Detect); Pseudomonas aeruginosa Not Detected (Not Detect); Serratia marcescens Not Detected (Not Detect); Staphylococcus species Not Detected (Not Detect); Streptococcus agalactiae (Gr B Not Detected (Not Detect); Streptococcus pneumonia Not Detected (Not Detect); Streptococcus pyogenes (Gr A) Not Detected (Not Detect); Streptococcus species Not Detected (Not Detect)
[2021-07-12 16:19] LABS: Candida parapsilosis Not Detected (Not Detect); Candida tropicalis Not Detected (Not Detect)
== END 2021-07-07 20:01 | disposition home or self-care (01) ==
PROVIDERS: Emergency Provider Emergency Medicine; PCP Family Medicine
DX: N39.0 Urinary tract infection, site not specified (principal); R11.2 Nausea with vomiting, unspecified; R07.9 Chest pain, unspecified; Z20.822 Contact with and (suspected) exposure to COVID-19
CPT/HCPCS: 36415; 71045; 74177; 80053; 81001; 82550; 83605; 83690; 84145; 84484; 85025; 85610; 87040; 87086; 87150; 87205; 87635; 93005; 96360; 96361; 99285; C9803; Q9967

== ENCOUNTER 2021-07-14 12:03 | Emergency (ER) | payer MEDICARE, SELFPAY ==
[2021-07-14] VITALS (21 sets, daily range): BP systolic 74–177; BP diastolic 52–78; PULSE 58–68; RESP 12–24; TEMP 36.8; O2SAT 94–97
--- NOTE | 2021-07-14 12:07 | DI.RAD.S_ITS ---
PROCEDURE: XR CHEST 1V INDICATIONS: suspected sepsis TECHNIQUE: One view of the chest was acquired. COMPARISON: [facility], CT, CT ABDOMEN PELVIS W CON, 07/07/2021, 17:08. [facility], CR, XR CHEST 1V, 07/07/2021, 15:43. [facility], CR, CHEST 1 VIEW, 08/12/2017, 6:12. FINDINGS: Surgical changes and devices: None. Lungs and pleura: Lungs are clear. No pleural effusions or pneumothorax. Mediastinum: Mediastinal contours appear normal. Heart size is normal. Bones and chest wall: No suspicious bony lesions. Overlying soft tissues appear unremarkable. IMPRESSION: No acute cardiopulmonary abnormality. Dictated by: Ernesto Hammond M.D. on 07/14/2021 at 12:10 Approved by: Ernesto Hammond M.D. on 07/14/2021 at 12:11
[2021-07-14 12:38] LABS: Add Manual Diff / Slide Review NO; Basophils Absolute Auto 100 /uL (0-100); Basophils Percent Auto 0.6 % (0-2); Eosinophils Absolute Auto 400 /uL (0-450); Eosinophils Percent Auto 4.1 % (2-4); Hematocrit 33.8 % (36-46); Hemoglobin 11.1 g/dL (12.0-16.0); Lymphocytes Absolute Auto 1600 /uL (1100-4500); Lymphocytes Percent Auto 16.1 % (25-40); Mean Corpuscular HGB Conc 32.7 % (30-36); Mean Corpuscular Hemoglobin 28.4 PG (26-34); Mean Corpuscular Volume 86.8 fL (80-100); Monocytes Absolute Auto 700 /uL (0-900); Neutrophils Absolute Auto 7000 /uL (1500-7000); Neutrophils Percent Auto 72.2 % (50-75); Platelet Count 207 X10^3/uL (150-400); Red Blood Cell Count 3.89 X10^6/uL (4.0-5.2); Red Cell Distribution Width 14.3 % (11.6-14.8); White Blood Cell Count 9.7 X10^3/uL (4.5-11.0)
[2021-07-14] MEDS: SODIUM CHLORIDE 0.9% 1,000 ML 1000 ML IV (12:45)
[2021-07-14 12:46] LABS: Alanine Aminotransferase 16 IU/L (<35); Albumin 3.2 g/dL (3.5-5.0); Albumin Globulin Ratio 1.1 (1.0-2.8); Alkaline Phosphatase 86 U/L (38-126); Aspartate Aminotransferase 28 IU/L (14-36); Bilirubin Total 0.5 mg/dL (0.2-1.3); Blood Urea Nitrogen 13 mg/dL (7-17); Calcium 8.4 mg/dL (8.4-10.2); Carbon Dioxide 26 mmol/L (22-32); Chloride 102 mmol/L (98-107); Creatine Kinase 30 U/L (30-135); Estimated Glomerular Filt Rate 45.3 mL/min (>60); Globulin 2.9 g/dL (1.7-4.1); Glucose 146 mg/dL (80-110); HEMOLYSIS < 15 (0-50); Lipase 162 U/L (23-300); Potassium 2.9 mmol/L (3.4-5.1); Sodium 135 mmol/L (137-145); Total Protein 6.1 g/dL (6.3-8.2)
[2021-07-14 12:47] LABS: Lactate (Lactic Acid) 1.1 mmol/L (0.7-2.1)
[2021-07-14 12:58] LABS: Troponin I 0.014 ng/mL (0.01-0.034)
--- NOTE | 2021-07-14 13:20 | ED.GENADULT ---
HPI - General Adult General Chief complaint: Weakness Stated complaint: failure to thrive Time Seen by Provider: 07/14/21 12:14 Source: patient and EMS Mode of arrival: EMS History of Present Illness HPI narrative: Patient is a 70-year-old female. She is brought in by EMS with her for evaluation of fatigue, decreased oral intake, weakness. states this is been going on for the past several weeks. She has recently seen was treated with antibiotics for urinary tract infection from this facility. Patient's states that the last time she was here she was very dehydrated. She received fluids and then improved but was discharged home. He states that the living facility she has been weak. Has not been eating. Has not been drinking. He states that she did receive fluids at the living facility however that was several days ago and the patient has not been drinking what since then. Her been no reported falls. Related Data Home Medications Medication Instructions Recorded Confirmed furosemide 20 mg tablet 20 mg PO DAILY #0 08/12/17 09/14/18 aspirin 325 mg tablet 325 mg PO DAILY 08/10/18 08/25/18 atorvastatin 80 mg tablet 80 mg PO DAILY 08/10/18 09/14/18 biotin 1,000 mcg chewable tablet 1,000 mcg PO DAILY 08/10/18 09/14/18 clopidogrel 75 mg tablet 75 mg PO DAILY 08/10/18 09/14/18 coenzyme Q10 100 mg capsule (Co 100 mg PO DAILY 08/10/18 09/14/18 Q-10) diphenhydramine HCl 50 mg capsule 50 mg PO BEDTIME PRN 08/10/18 09/14/18 insulin glargine 100 unit/mL (3 20 units SUBCUT QPM 08/10/18 09/14/18 mL) subcutaneous pen magnesium 250 mg tablet 250 mg PO DAILY 08/10/18 09/14/18 metformin 500 mg tablet 1,000 mg PO QPM 08/10/18 09/14/18 metformin 500 mg tablet 1,500 mg PO QAM 08/10/18 09/14/18 metoprolol tartrate 50 mg tablet 50 mg PO BID 08/10/18 09/14/18 naproxen sodium 220 mg tablet 440 mg PO QAM 08/10/18 09/14/18 (Aleve) omeprazole 20 mg capsule,delayed 20 mg PO DAILY 08/10/18 09/14/18 release ondansetron HCl 4 mg tablet 4 mg PO Q6H PRN 08/10/18 09/14/18 trazodone 100 mg tablet 100 mg PO BEDTIME 08/10/18 09/14/18 benzonatate 100 mg capsule 1 cap PO TID PRN 08/25/18 09/14/18 diphenoxylate-atropine 2.5 1 tab PO QID PRN 08/25/18 09/14/18 mg-0.025 mg tablet glipizide 5 mg tablet 1 tab PO DAILY 08/25/18 09/14/18 losartan 50 mg tablet 50 mg PO DAILY 08/25/18 09/14/18 lovastatin 20 mg tablet 20 mg PO DAILY 09/14/18 09/14/18 oxybutynin chloride 5 mg tablet 5 mg PO BID 09/14/18 09/14/18 Previous Rx's Medication Instructions Recorded tramadol 50 mg tablet (Ultram) 50 mg PO Q6H PRN #5 tab 08/25/18 ciprofloxacin HCl 500 mg tablet 500 mg PO BID #14 tab 07/07/21 (Cipro) Allergies Allergy/AdvReac Type Severity Reaction Status Date / Time shellfish derived Allergy Severe anaphylaxis Verified 08/25/18 07:52 [SHELLFISH DERIVED] Penicillins [PENICILLINS] Allergy Intermediate affects Verified 08/25/18 07:52 breathing acetaminophen Allergy Unknown Verified 08/25/18 07:52 [From DARVOCET-N] morphine [MORPHINE] Allergy Unknown Verified 08/25/18 07:52 propoxyphene Allergy Unknown Verified 08/25/18 07:52 [From DARVOCET-N] Tetracyclines [TETRACYCLINES] Allergy Unknown Verified 08/25/18 07:52 ERYTHROMYCIN Allergy Mild Uncoded 08/25/18 07:52 HYDROCODONE Allergy Mild Uncoded 08/25/18 07:52 SULFA Allergy Mild Uncoded 08/25/18 07:52 Review of Systems Constitutional Constitutional: Reports fatigue, Denies fever(s), Reports lethargy and Reports malaise Cardiovascular Comments: Denies chest pain Respiratory Comments: Denies shortness of breath Gastrointestinal Comments: Denies vomiting Musculoskeletal Comments: Endorses muscular weakness Integumentary/Breasts Skin/Breast: Reports system reviewed and no additional complaints, except as documented Neurologic Comments: Decreased activity Endocrine Endocrine: Reports fatigue Hematologic/Lymphatic On Anticoagulants: No Patient History Medical History CVA (cerebral vascular accident) Hyperlipidemia Hypertension Social History Smoking Status: Former smoker alcohol intake: never substance use type: does not use Smoking Status: Former smoker Exam Initial Vital Signs Initial Vital Signs: Vital Signs Pulse Rate 62 07/14/21 12:07 Respiratory Rate 16 07/14/21 12:07 Blood Pressure 100/69 07/14/21 12:07 Pulse Oximetry 95 07/14/21 12:07 Const General: frail appearing HENMT Head: normal to inspection and normocephalic Eyes General: appearance normal, both eyes and all related structures Resp Effort & Inspection: normal respiratory effort Auscultation: clear to auscultation bilaterally Cardio Rate: regular rate Rhythm: regular rhythm GI Inspection: normal to inspection Palpation: soft Skin General: no rashes or lesions noted Neuro General: patient alert, patient awake, patient oriented x3 and moves all extremities Extrem General: normal to inspection Psych Appearance: grossly normal Course Orders Ordered: ED Orders 07/14/21 12:07 XR chest 1V Stat EKG-12 Lead Stat RT Consult Eval and Treat Now 07/14/21 12:25 Complete Blood Count AUTO DIFF Stat Comprehensive Metabolic Panel Stat Lactate (Lactic Acid) Stat Lipase Stat Procalcitonin Stat Troponin & CK Cardiac Panel Stat 07/14/21 12:34 COVID19 - ADMIT ([employer] WHE[employer]ER swab/PCR) Stat 07/14/21 13:30 Ictotest Urine Stat Urinalysis and Microscopic Stat 07/14/21 14:25 Blood Culture Stat Discontinued Medications Sodium Chloride (Normal Saline 0.9%) 1,000 mls @ 1,000 mls/hr IV BOLUS ONE Stop: 07/14/21 13:06 Last Admin: 07/14/21 12:10 Dose: Not Given Documented by: SPEEDY Sodium Chloride (Normal Saline 0.9%) 1,000 mls @ 1,000 mls/hr IV BOLUS ONE Stop: 07/14/21 13:39 Last Infusion: 07/14/21 15:00 Dose: 0 mls/hr Documented by: Admin: 07/14/21 12:45 Dose: 1,000 mls/hr Documented by: SPEEDY POTASSIUM CHLORIDE IN WATER (Potassium Cl 10 Meq/100 Ml Larisa) 10 meq in 100 mls @ 100 mls/hr IV Q1H JUNIOR Stop: 07/14/21 15:59 Last Infusion: 07/14/21 16:29 Dose: 0 mls/hr Documented by: Admin: 07/14/21 15:20 Dose: 100 mls/hr Documented by: Infusion: 07/14/21 15:20 Dose: 0 mls/hr Documented by: Admin: 07/14/21 14:21 Dose: 100 mls/hr Documented by: MITALIOR Vital Signs Vital signs: Vital Signs - 8 hr 07/14/21 12:07 07/14/21 12:31 07/14/21 12:39 Temperature 98.2 F Pulse Rate 62 58 L 59 L Respiratory Rate 16 Blood Pressure 100/69 74/52 L Pulse Oximetry 95 96 96 07/14/21 12:44 07/14/21 12:56 07/14/21 13:00 Temperature Pulse Rate 62 63 61 Respiratory Rate 12 20 12 Blood Pressure 107/56 L 118/63 Pulse Oximetry 96 96 97 07/14/21 13:30 07/14/21 13:54 07/14/21 14:00 Temperature Pulse Rate 66 59 L 60 Respiratory Rate 22 12 16 Blood Pressure 133/63 141/67 H Pulse Oximetry 97 96 96 07/14/21 14:10 07/14/21 14:30 07/14/21 14:31 Temperature Pulse Rate 66 63 63 Respiratory Rate 22 17 21 Blood Pressure 177/73 H 153/75 H Pulse Oximetry 95 96 96 07/14/21 14:40 07/14/21 14:50 07/14/21 15:00 Temperature Pulse Rate 62 58 L 60 Respiratory Rate 24 15 12 Blood Pressure 157/78 H 139/71 141/69 H Pulse Oximetry 95 95 94 07/14/21 15:10 07/14/21 15:20 07/14/21 15:30 Temperature Pulse Rate 60 61 60 Respiratory Rate 15 13 12 Blood Pressure 138/68 140/73 130/67 Pulse Oximetry 95 95 95 07/14/21 16:00 07/14/21 16:30 07/14/21 17:00 Temperature Pulse Rate 65 59 L 68 Respiratory Rate 19 16 23 Blood Pressure 141/72 H 134/65 153/71 H Pulse Oximetry 95 95 95 Medical Decision Making Lab Data Lab results reviewed: Yes I reviewed the patient's lab results. Result diagrams: 07/14/21 12:25 07/14/21 12:25 Labs: Lab Results 07/14/21 07/14/21 07/14/21 Range/Units 12:25 12:25 12:25 WBC 9.7 (4.5-11.0) X10^3/uL RBC 3.89 L (4.0-5.2) X10^6/uL Hgb 11.1 L (12.0-16.0) g/dL Hct 33.8 L (36-46) % MCV 86.8 (80-100) fL MCH 28.4 (26-34) PG MCHC 32.7 (30-36) % RDW 14.3 (11.6-14.8) % Plt Count 207 (150-400) X10^3/uL Neut % (Auto) 72.2 (50-75) % Lymph % (Auto) 16.1 L (25-40) % [place] % (Auto) 7.0 (3-14) % Eos % (Auto) 4.1 H (2-4) % Baso % (Auto) 0.6 (0-2) % Neut # (Auto) 7000 (9993-7962) /uL Lymph # (Auto) 1600 (3064-6827) /uL [place] # (Auto) 700 (0-900) /uL Eos # (Auto) 400 (0-450) /uL Baso # (Auto) 100 (0-100) /uL Sodium 135 L (137-145) mmol/L Potassium 2.9 L (3.4-5.1) mmol/L Chloride 102 (98-107) mmol/L Carbon Dioxide 26 (22-32) mmol/L BUN 13 (7-17) mg/dL Creatinine 1.18 H (0.52-1.04) mg/dL Estimated GFR 45.3 L (>60) mL/min BUN/Creatinine Ratio 11.0 (6-22) Glucose 146 H (80-110) mg/dL Lactate 1.1 (0.7-2.1) mmol/L Calcium 8.4 (8.4-10.2) mg/dL Total Bilirubin 0.5 (0.2-1.3) mg/dL AST 28 (14-36) IU/L ALT 16 (<35) IU/L Alkaline Phosphatase 86 (38-126) U/L Total Creatine Kinase 30 (30-135) U/L CK-MB (CK-2) TNP CK-MB (CK-2) Rel Index TNP Troponin I 0.014 (0.01-0.034) ng/mL Total Protein 6.1 L (6.3-8.2) g/dL Albumin 3.2 L (3.5-5.0) g/dL Globulin 2.9 (1.7-4.1) g/dL Albumin/Globulin Ratio 1.1 (1.0-2.8) Lipase 162 (23-300) U/L Procalcitonin 0.10 (<0.5) ng/mL Urine Color Urine Appearance Urine pH (4.5-8.0) Ur Specific [place] (1.000-1.035) Urine Protein (Negative) Urine Glucose (UA) (Negative) g/dL Urine Ketones (NEGATIVE) Urine Occult Blood (Negative) Urine Nitrate (Negative) Urine Bilirubin (NEGATIVE) Ur Bilirubin Confirm (Negative) Urine Urobilinogen (0.2) E.U./dL Ur Leukocyte Esterase (NEGATIVE) Urine RBC (0-5/HPF) Urine WBC (0-5/HPF) Ur Squamous Epith Cells (0-5/HPF) Urine Bacteria (None) Ur Culture Indicated? SARS-CoV-2 (PCR) (Negative) 07/14/21 07/14/21 Range/Units 12:34 13:30 WBC (4.5-11.0) X10^3/uL RBC (4.0-5.2) X10^6/uL Hgb (12.0-16.0) g/dL Hct (36-46) % MCV (80-100) fL MCH (26-34) PG MCHC (30-36) % RDW (11.6-14.8) % Plt Count (150-400) X10^3/uL Neut % (Auto) (50-75) % Lymph % (Auto) (25-40) % [place] % (Auto) (3-14) % Eos % (Auto) (2-4) % Baso % (Auto) (0-2) % Neut # (Auto) (9083-0994) /uL Lymph # (Auto) (7747-3930) /uL [place] # (Auto) (0-900) /uL Eos # (Auto) (0-450) /uL Baso # (Auto) (0-100) /uL Sodium (137-145) mmol/L Potassium (3.4-5.1) mmol/L Chloride (98-107) mmol/L Carbon Dioxide (22-32) mmol/L BUN (7-17) mg/dL Creatinine (0.52-1.04) mg/dL Estimated GFR (>60) mL/min BUN/Creatinine Ratio (6-22) Glucose (80-110) mg/dL Lactate (0.7-2.1) mmol/L Calcium (8.4-10.2) mg/dL Total Bilirubin (0.2-1.3) mg/dL AST (14-36) IU/L ALT (<35) IU/L Alkaline Phosphatase (38-126) U/L Total Creatine Kinase (30-135) U/L CK-MB (CK-2) CK-MB (CK-2) Rel Index Troponin I (0.01-0.034) ng/mL Total Protein (6.3-8.2) g/dL Albumin (3.5-5.0) g/dL Globulin (1.7-4.1) g/dL Albumin/Globulin Ratio (1.0-2.8) Lipase (23-300) U/L Procalcitonin (<0.5) ng/mL Urine Color Yellow Urine Appearance Clear Urine pH 6.5 (4.5-8.0) Ur Specific [place] 1.015 (1.000-1.035) Urine Protein 3+ H (Negative) Urine Glucose (UA) Negative (Negative) g/dL Urine Ketones 1+ H (NEGATIVE) Urine Occult Blood Trace-lysed (Negative) Urine Nitrate Negative (Negative) Urine Bilirubin 1+ H (NEGATIVE) Ur Bilirubin Confirm Negative (Negative) Urine Urobilinogen 0.2 (0.2) E.U./dL Ur Leukocyte Esterase Negative (NEGATIVE) Urine RBC 1-5/hpf (0-5/HPF) Urine WBC 1-5/hpf (0-5/HPF) Ur Squamous Epith Cells 1-5 /hpf (0-5/HPF) Urine Bacteria Few (2-10) H (None) Ur Culture Indicated? Cult not indicated SARS-CoV-2 (PCR) Negative (Negative) Urine Dip Bedside Urine Glucose Negative Bedside Urine Bilirubin - Negative Bedside Urine Ketone + 15 Urine Specific [place] 1.020 Bedside Urine Occult Blood - Negative Bedside Urine pH 6.0 Bedside Urine Protein +++ 300 Bedside Urine Urobilinogen - Negative Bedside Urine Nitrite - Negative Bedside Urine Leukocytes - Negative Esterase Point of care testing: Urine Dip Bedside Urine Glucose Negative Bedside Urine Bilirubin - Negative Bedside Urine Ketone + 15 Urine Specific [place] 1.020 Bedside Urine Occult Blood - Negative Bedside Urine pH 6.0 Bedside Urine Protein +++ 300 Bedside Urine Urobilinogen - Negative Bedside Urine Nitrite - Negative Bedside Urine Leukocytes - Negative Esterase Imaging Data Chest x-ray: Radiologist's Impression: [address] [address] XRay Report Signed Patient: Anu Escudero MR#: [id number] : 1950 Acct:[id number] Age/Sex: 70 / F Date of Service: 07/14/21 Loc: ED Accession Number: [id number] ?? Procedure: XR chest 1V Ordering Provider: Ap Roach D.O. PROCEDURE:? XR CHEST 1V ? INDICATIONS:? suspected sepsis ? TECHNIQUE:? One view of the chest was acquired.? ? COMPARISON:? Merged With [facility], CT, CT ABDOMEN PELVIS W CON, 07/07/2021, 17:08.? Merged With [facility], CR, XR CHEST 1V, 07/07/2021, 15:43.? Merged With [facility], CR, CHEST 1 VIEW, 08/12/2017, 6:12. ? FINDINGS:? ? Surgical changes and devices:? None.? ? Lungs and pleura:? Lungs are clear.? No pleural effusions or pneumothorax.? ? Mediastinum:? Mediastinal contours appear normal.? Heart size is normal.? ? Bones and chest wall:? No suspicious bony lesions.? Overlying soft tissues appear unremarkable.? ? IMPRESSION:? No acute cardiopulmonary abnormality. ? ? ? Dictated by: Ernesto Hammond M.D. on 07/14/2021 at 12:10 ? ? Approved by: Ernesto Hammond M.D. on 07/14/2021 at 12:11 ECG Data Attestation: I personally reviewed and interpreted this ECG as follows: Interpretation: Sinus rhythm Ventricular rate is 63 Normal axis Normal QRS QTC [address] T wave changes MDM Narrative Medical decision making narrative: Patient's vital signs unremarkable, labs unremarkable, chest x-ray is unremarkable, review of the patient's prior visit shows that she did have a urine culture that was performed however had no growth. I did discuss this with the patient and her . I did advise that they continue to take the antibiotics as directed. Patient did seem to improve after fluids. She has a walker at home and also a wheelchair. Had long discussion with the patient and her . It appears that the is somewhat upset with the living facility and there care of his . He thinks that she needs fluids by IV more often. He also mentioned that she potentially needs a fed through the IV as well given her decreased oral intake. After much discussion between myself and the patient and her and also nursing in the patient and it appears that she has multiple food allergies. She also does not like to drink water. The states she likes to drink soda. She also does not like certain foods. It appears that her issue is not that she cannot eat or drink its that she either has reported allergy to a certain food or she does not like the food. I informed that unfortunately just because she does not like to drink water is not indication to admit her to the hospital. I informed the patient that she does need to increase her fluid intake and that she may need to drink water despite the fact that she does not like to. Also informed her that she may need to eat certain foods despite the fact she does not like them because she needs to keep energy up. There is no indication to admit her to the hospital today. No indication to change any antibiotics. Discharge Plan Departure Patient Disposition: Home Clinical Impression: Dehydration Instructions: DI for Dehydration -- Adult Activity Restrictions/Additional Instructions: It is important that you increase your fluid intake. This means that you may have to drink water despite the fact that you do not like to drink it. I would recommend that you talk with the staff at the facility about the indications for having you see a heat sealing machine operator. You also need to realize that even though you may not like to eat something it may be necessary in order for you to keep your strength. Contact your primary doctor for follow-up. Prescriptions: No Action furosemide 20 MG tablet 20 mg PO DAILY Qty: 0 RF: 0 metformin 500 mg tablet 1,500 mg PO QAM RF: 0 metformin 500 mg tablet 1,000 mg PO QPM RF: 0 atorvastatin 80 mg tablet 80 mg PO DAILY RF: 0 diphenhydramine HCl 50 mg Capsule 50 mg PO BEDTIME PRN (Reason: Sleep) RF: 0 aspirin 325 mg Tablet 325 mg PO DAILY RF: 0 ondansetron HCl 4 mg tablet 4 mg PO Q6H PRN (Reason: Nausea) RF: 0 clopidogrel 75 mg tablet 75 mg PO DAILY RF: 0 trazodone 100 mg tablet 100 mg PO BEDTIME RF: 0 naproxen sodium [Aleve] 220 mg Tablet 440 mg PO QAM RF: 0 metoprolol tartrate 50 mg tablet 50 mg PO BID RF: 0 omeprazole 20 mg Capsule,Delayed Release(Dr/Ec) 20 mg PO DAILY RF: 0 magnesium 250 mg Tablet 250 mg PO DAILY RF: 0 coenzyme Q10 [Co Q-10] 100 mg Capsule 100 mg PO DAILY RF: 0 insulin glargine [Lantus Solostar U-100 Insulin] 100 unit/mL (3 mL) insulin pen 20 units subcut QPM RF: 0 biotin 1,000 mcg Tablet,Chewable 1,000 mcg PO DAILY RF: 0 losartan 50 mg tablet 50 mg PO DAILY RF: 0 diphenoxylate-atropine 2.5-0.025 mg tablet 1 tab PO QID PRN (Reason: Diarrhea) RF: 0 benzonatate 100 mg capsule 1 cap PO TID PRN (Reason: Cough) RF: 0 glipizide 5 mg tablet 1 tab PO DAILY RF: 0 tramadol [Ultram] 50 mg tablet 50 mg PO Q6H PRN (Reason: pain) Qty: 5 RF: 0 lovastatin 20 mg tablet 20 mg PO DAILY RF: 0 oxybutynin chloride 5 mg tablet 5 mg PO BID RF: 0 ciprofloxacin HCl [Cipro] 500 mg tablet 500 mg PO BID Qty: 14 RF: 0 Referrals: Esteban Pressley MD [Primary Care Provider] -
[2021-07-14 14:08] LABS: Appearance Urine UA CLEAR; Bilirubin Urine UA 1+ (NEGATIVE); Color Urine UA YELLOW; Glucose Urine UA NEGATIVE (Negative); Ketones Urine UA 1+ (NEGATIVE); Leukocyte Esterase Urine UA NEGATIVE (NEGATIVE); Nitrite Urine UA NEGATIVE (Negative); Occult Blood Urine UA TRACE-LYSED (Negative); Protein Urine UA 3+ (Negative); Specific Gravity Urine UA 1.015 (1.000-1.035); Urobilinogen Urine UA 0.2 E.U./dL (0.2)
[2021-07-14 14:10] LABS: pH Urine UA 6.5 (4.5-8.0)
[2021-07-14 14:19] LABS: Ictotest Urine Negative (Negative); RBC Urine 1-5/HPF (0-5/HPF); WBC Urine 1-5/HPF (0-5/HPF)
[2021-07-14 14:20] LABS: Bacteria Urine Few (2-10); Culture Indicated Urine Cult Not Indicated; Squamous Epithelial Cell Urine 1-5 /HPF (0-5/HPF)
[2021-07-14] MEDS: POTASSIUM CHLORIDE IN WATER 10 MEQ/100 ML PIGGYBACK 100 MEQ IV ×2 (14:21→15:20)
[2021-07-14 14:24] LABS: COVID19 - ADMIT (NP swab/PCR) Negative (Negative)
--- NOTE | 2021-07-14 14:43 | PC.NURSE ---
Offered lunch to patient. Patient requested assistance to eat soup that was ordered by patient. Patient took a bite and declined the soup. Took a sip of water then attempted a sailaja cracker. Patient did not care for the sailaja cracker. Nurse aware. Doctor aware.
--- NOTE | 2021-07-14 16:17 | PC.NURSE ---
concerned about pt poor intake, pt stated she was hungry, requested chicken noodle soup but after a single bite she stated it has msg in it and she is allergic to msg. Refused other soup options stating she is allergic to tomatoes, would not eat the cookie stating she is allergic to chocolate, requested chocolate pudding for pt and stated I don't think she's allergic to all of the things she says she is. Pt declined crackers. Pt drinks water without issues noted but requires persuasion r/t not liking the water. Provider aware.
== END 2021-07-14 17:21 | disposition home or self-care (01) ==
PROVIDERS: Emergency Provider Emergency Medicine; PCP Family Medicine
DX: E86.0 Dehydration (principal)
CPT/HCPCS: 36415; 71045; 80053; 81001; 81003; 82550; 83605; 83690; 84145; 84484; 85025; 87040; 87635; 93005; 96360; 96361; 99284; C9803

== ENCOUNTER 2021-07-19 14:31 | Emergency (ER) | payer MEDICARE, MEDICAID, SELFPAY ==
[2021-07-19 14:35] VITALS: BP 129/81; PULSE 78; RESP 16; TEMP 36.8; O2SAT 97; BMI 29.2
--- NOTE | 2021-07-19 17:17 | DI.CT.S_ITS ---
PROCEDURE: CT FACIAL BONES WO CON INDICATIONS: possible abscess at angle of jaw on left side TECHNIQUE: Noncontrast 2.5 mm thick axial images acquired from the mandible through the frontal sinuses, with coronal and sagittal reformatting. For radiation dose reduction, the following was used: automated exposure control, adjustment of mA and/or kV according to patient size. COMPARISON: [facility], CT, CT FACIAL BONES WO CON, 09/14/2018, 16:13. FINDINGS: Image quality: Excellent. Bones and teeth: Orbital cabrales are intact. Sinus cabrales show no fracture or deformity. Nasal bones and septum are intact. Visualized portions of the mandible demonstrate no fractures or subluxation. Zygomatic arches are intact. Pterygoid plates are intact. Visualized portions of the skull base and auditory canals are intact. Degenerative changes are seen in the included spine. The patient is edentulous. Sinuses: Paranasal sinuses are aerated, without fluid levels, mucosal thickening, or mucoceles. Mastoid air cells are aerated. Soft tissues: There is enlargement of the left parotid gland with edema. No discrete abscess is seen. No parotid duct calculus is seen. There is also subcutaneous edema throughout the left face. The included portions of the brain parenchyma demonstrates cerebral volume loss and chronic microvascular ischemic changes. Atherosclerotic calcifications are seen at the carotid bifurcations. A few mildly prominent cervical lymph nodes are most likely reactive. Vascular: Visualized vascular structures appear normal in the absence of contrast. Bony vascular foramina and canals are intact. IMPRESSION: Soft tissue edema involving the left parotid gland and subcutaneous tissues is suspicious for parotitis. No discrete abscess is seen. Dictated by: Tu Diaz M.D. on 07/19/2021 at 17:58 Approved by: Tu Diaz M.D. on 07/19/2021 at 18:02
--- NOTE | 2021-07-19 17:19 | ED_ITS ---
HPI - Dental/Oral <Craig Kamara PA-C - Last Filed: 07/20/21 11:49> General Chief complaint: Dental/Oral Stated complaint: Left Sided Facial Swelling Time Seen by Provider: 07/19/21 16:49 History of Present Illness HPI Narrative: Anu presents today with chief complaint of left-sided facial pain and swelling that has gotten substantially worse over the last 2 days. She is here with her . He reports that she was evaluated about 1 week ago and treated for dehydration. She reports that she has had a dry mouth over the last few weeks which has made oral intake difficulty. She is still eating and drinking but reports decreased oral intake. She is still voiding and having normal bowel movements. Denies any chest pain, cough, sore throat, fever, chills, headache or any other acute concerns or complaints at this time. Related Data Home Medications Medication Instructions Recorded Confirmed furosemide 20 mg tablet 20 mg PO DAILY #0 08/12/17 09/14/18 aspirin 325 mg tablet 325 mg PO DAILY 08/10/18 08/25/18 atorvastatin 80 mg tablet 80 mg PO DAILY 08/10/18 09/14/18 biotin 1,000 mcg chewable tablet 1,000 mcg PO DAILY 08/10/18 09/14/18 clopidogrel 75 mg tablet 75 mg PO DAILY 08/10/18 09/14/18 coenzyme Q10 100 mg capsule (Co 100 mg PO DAILY 08/10/18 09/14/18 Q-10) diphenhydramine HCl 50 mg capsule 50 mg PO BEDTIME PRN 08/10/18 09/14/18 insulin glargine 100 unit/mL (3 20 units SUBCUT QPM 08/10/18 09/14/18 mL) subcutaneous pen magnesium 250 mg tablet 250 mg PO DAILY 08/10/18 09/14/18 metformin 500 mg tablet 1,000 mg PO QPM 08/10/18 09/14/18 metformin 500 mg tablet 1,500 mg PO QAM 08/10/18 09/14/18 metoprolol tartrate 50 mg tablet 50 mg PO BID 08/10/18 09/14/18 naproxen sodium 220 mg tablet 440 mg PO QAM 08/10/18 09/14/18 (Aleve) omeprazole 20 mg capsule,delayed 20 mg PO DAILY 08/10/18 09/14/18 release ondansetron HCl 4 mg tablet 4 mg PO Q6H PRN 08/10/18 09/14/18 trazodone 100 mg tablet 100 mg PO BEDTIME 08/10/18 09/14/18 benzonatate 100 mg capsule 1 cap PO TID PRN 08/25/18 09/14/18 diphenoxylate-atropine 2.5 1 tab PO QID PRN 08/25/18 09/14/18 mg-0.025 mg tablet glipizide 5 mg tablet 1 tab PO DAILY 08/25/18 09/14/18 losartan 50 mg tablet 50 mg PO DAILY 08/25/18 09/14/18 lovastatin 20 mg tablet 20 mg PO DAILY 09/14/18 09/14/18 oxybutynin chloride 5 mg tablet 5 mg PO BID 09/14/18 09/14/18 Previous Rx's Medication Instructions Recorded tramadol 50 mg tablet (Ultram) 50 mg PO Q6H PRN #5 tab 08/25/18 ciprofloxacin HCl 500 mg tablet 500 mg PO BID #14 tab 07/07/21 (Cipro) clindamycin HCl 300 mg capsule 300 mg PO TID 7 Days #21 cap 07/19/21 Allergies Allergy/AdvReac Type Severity Reaction Status Date / Time shellfish derived Allergy Severe anaphylaxis Verified 08/25/18 07:52 [SHELLFISH DERIVED] Penicillins [PENICILLINS] Allergy Intermediate affects Verified 08/25/18 07:52 breathing acetaminophen Allergy Unknown Verified 08/25/18 07:52 [From DARVOCET-N] morphine [MORPHINE] Allergy Unknown Verified 08/25/18 07:52 propoxyphene Allergy Unknown Verified 08/25/18 07:52 [From DARVOCET-N] Tetracyclines [TETRACYCLINES] Allergy Unknown Verified 08/25/18 07:52 ERYTHROMYCIN Allergy Mild Uncoded 08/25/18 07:52 HYDROCODONE Allergy Mild Uncoded 08/25/18 07:52 SULFA Allergy Mild Uncoded 08/25/18 07:52 Review of Systems <Craig Kamara PA-C - Last Filed: 07/20/21 11:49> Review of Systems Narrative: As per HPI Patient History <Craig Kamara PA-C - Last Filed: 07/20/21 11:49> Medical History (Updated 07/19/21 @ 19:14 by Craig Kamara PA-C) CVA (cerebral vascular accident) Hyperlipidemia Hypertension Social History Smoking Status: Former smoker alcohol intake: never substance use type: does not use Smoking Status: Former smoker Exam <Craig Kamara PA-C - Last Filed: 07/20/21 11:49> Narrative Exam Narrative: Exam Narrative: Const General: cooperative, healthy appearing, comfortable, no acute distress, well developed and well groomed Nutritional Appearance: average body habitus Orientation: alert and oriented x3 HENMT Head: normal to inspection and atraumatic Ears: hearing grossly normal bilaterally Nose: external nose normal and nares normal Face and sinus: Right-sided facial swelling and erythema to the angle of the jaw. Mouth Edentuous, no obvious stone noted, posterior oropharynx has no significant e rythema or edema noted. No obvious gingival erythema or abscess noted. Neck Neck: normal visual inspection and supple, full range of motion of the neck and no cervical lymphadenopathy Resp Effort & Inspection: normal respiratory effort, able to speak in complete sentences, no audible wheezes, no stridor Neuro General: alert, oriented x3, gait normal, tone normal and moves all extremities Cognition: normal cognition Speech: speech normal Gait: normal gait Psych Appearance: grossly normal and well kempt Mental Status: mental status grossly normal Speech and Movement: speech and movement normal Mood: congruent mood Affect: normal affect Initial Vital Signs Initial Vital Signs: Vital Signs Temperature 98.2 F 07/19/21 14:35 Pulse Rate 78 07/19/21 14:35 Respiratory Rate 16 07/19/21 14:35 Blood Pressure 129/81 07/19/21 14:35 Pulse Oximetry 97 07/19/21 14:35 <Heike Moy DO - Last Filed: 07/21/21 15:42> Initial Vital Signs Initial Vital Signs: Vital Signs Temperature 98.2 F 07/19/21 14:35 Pulse Rate 78 07/19/21 14:35 Respiratory Rate 16 07/19/21 14:35 Blood Pressure 129/81 07/19/21 14:35 Pulse Oximetry 97 07/19/21 14:35 Course <Craig Kamara PA-C - Last Filed: 07/20/21 11:49> Orders Ordered: ED Orders 07/19/21 17:17 CT facial bones wo con Stat Vital Signs Vital signs: Vital Signs - 8 hr 07/19/21 14:35 Temperature 98.2 F Pulse Rate 78 Respiratory Rate 16 Blood Pressure 129/81 Pulse Oximetry 97 <Heike Moy DO - Last Filed: 07/21/21 15:42> Orders Ordered: ED Orders 07/19/21 17:17 CT facial bones wo con Stat Vital Signs Vital signs: Vital Signs - 8 hr 07/19/21 14:35 Temperature 98.2 F Pulse Rate 78 Respiratory Rate 16 Blood Pressure 129/81 Pulse Oximetry 97 MDM - Dental/Oral <Craig Kamara PA-C - Last Filed: 07/20/21 11:49> Lab Data Labs: Lab Results 07/19/21 Range/Units 18:07 Group A Strep (PCR) Cancelled MDM Narrative Medical decision making narrative: Patient does not have any obvious sialolith on examination. No evidence of dental abscess or gingival erythema. No evidence of peritonsillar abscess. She is afebrile and has full range of motion of her neck without significant difficulty. Retropharyngeal abscess was considered but this is less likely at this time. We will treat for Parontitis at this time but given her erythema will also do antibiotics to cover for bacterial infection. Return precautions were discussed with the patient. Patient verbalizes understanding and agrees to plan and has no further concerns at this time. Thank you A [id number] system was used with the dictation of this note. Please disregard any spelling or grammatical errors. <Heike Moy DO - Last Filed: 07/21/21 15:42> Lab Data Labs: Lab Results 07/19/21 Range/Units 18:07 Group A Strep (PCR) Cancelled Discharge Plan Departure Patient Disposition: Home Clinical Impression: Parotiditis Instructions: DI for Parotitis-Adult Activity Restrictions/Additional Instructions: It was very nice to meet you this evening. Please stay well hydrated and try sour candies to increase your salivary output. Recommend using the antibiotics to cover for bacterial infection. Please return if you develop fever, increased pain, increased swelling or any other acute concerns or complaints. Thank you Craig Kamara PA-C Prescriptions: New clindamycin HCl 300 mg capsule 300 mg PO TID 7 Days Qty: 21 RF: 0 No Action furosemide 20 MG tablet 20 mg PO DAILY Qty: 0 RF: 0 metformin 500 mg tablet 1,500 mg PO QAM RF: 0 metformin 500 mg tablet 1,000 mg PO QPM RF: 0 atorvastatin 80 mg tablet 80 mg PO DAILY RF: 0 diphenhydramine HCl 50 mg Capsule 50 mg PO BEDTIME PRN (Reason: Sleep) RF: 0 aspirin 325 mg Tablet 325 mg PO DAILY RF: 0 ondansetron HCl 4 mg tablet 4 mg PO Q6H PRN (Reason: Nausea) RF: 0 clopidogrel 75 mg tablet 75 mg PO DAILY RF: 0 trazodone 100 mg tablet 100 mg PO BEDTIME RF: 0 naproxen sodium [Aleve] 220 mg Tablet 440 mg PO QAM RF: 0 metoprolol tartrate 50 mg tablet 50 mg PO BID RF: 0 omeprazole 20 mg Capsule,Delayed Release(Dr/Ec) 20 mg PO DAILY RF: 0 magnesium 250 mg Tablet 250 mg PO DAILY RF: 0 coenzyme Q10 [Co Q-10] 100 mg Capsule 100 mg PO DAILY RF: 0 insulin glargine [Lantus Solostar U-100 Insulin] 100 unit/mL (3 mL) insulin pen 20 units subcut QPM RF: 0 biotin 1,000 mcg Tablet,Chewable 1,000 mcg PO DAILY RF: 0 losartan 50 mg tablet 50 mg PO DAILY RF: 0 diphenoxylate-atropine 2.5-0.025 mg tablet 1 tab PO QID PRN (Reason: Diarrhea) RF: 0 benzonatate 100 mg capsule 1 cap PO TID PRN (Reason: Cough) RF: 0 glipizide 5 mg tablet 1 tab PO DAILY RF: 0 tramadol [Ultram] 50 mg tablet 50 mg PO Q6H PRN (Reason: pain) Qty: 5 RF: 0 lovastatin 20 mg tablet 20 mg PO DAILY RF: 0 oxybutynin chloride 5 mg tablet 5 mg PO BID RF: 0 ciprofloxacin HCl [Cipro] 500 mg tablet 500 mg PO BID Qty: 14 RF: 0 Referrals: Esteban Pressley MD [Primary Care Provider] - <Heike Moy DO - Last Filed: 07/21/21 15:42> Cosign ED Attending Ivanature Attestation: I was immediately available in the department for consultation. Documentation has been reviewed. Case was discussed. Imaging was obtained. Patient appears to have a prostatitis. They are fully immunized. Patient covered with oral antibiotics. Conservative measures included.
[2021-07-19 18:59] VITALS: BP 156/71; PULSE 70; RESP 16; TEMP 36.9; O2SAT 97
== END 2021-07-19 19:29 | disposition home or self-care (01) ==
PROVIDERS: Emergency Provider Physician Assistant; PCP Family Medicine
DX: K11.20 Sialoadenitis, unspecified (principal)
CPT/HCPCS: 36415; 70486; 99283; 99284

== ENCOUNTER → 2021-09-19 17:11 | Outpatient (CLI) | payer MEDICARE, MEDICAID, SELFPAY ==
--- NOTE | 2021-09-19 | DI.RAD.S_ITS ---
PROCEDURE: XR FOOT RT MIN 3V INDICATIONS: r/o fx TECHNIQUE: 3 views of the foot were acquired. COMPARISON: None. FINDINGS: Bones: There is decreased study sensitivity given diffuse osteopenia. A nondisplaced fracture would be technically difficult to exclude. There is subtle irregular lucency and slight deformity at the 3rd metatarsal head which could be further investigated with MRI as clinically warranted. Please correlate to point tenderness. Diffuse interphalangeal and mild 1st MTP joint degeneration. Plantar and posterior calcaneal spurring. Scattered degenerative subchondral sclerosis and spurring. Soft tissues: Scattered vascular calcifications. IMPRESSION: Findings raise the possibility of minimally displaced 3rd metatarsal head fracture although markedly suboptimal evaluation secondary to widespread decreased bone mineralization. Confirmation /further assessment with MRI could be performed. Dictated by: Tobias Hollingsworth M.D. on 09/20/2021 at 10:37 Approved by: Tobias Hollingsworth M.D. on 09/20/2021 at 10:40
== END ==
PROVIDERS: PCP Family Medicine; Referring Provider Podiatrist; Visit Provider Podiatrist
DX: M79.671 Pain in right foot (principal)
CPT/HCPCS: 73630

== ENCOUNTER → 2021-10-01 15:28 | Outpatient (CLI) | payer MEDICARE, MEDICAID, SELFPAY ==
--- NOTE | 2021-10-01 15:37 | DI.RAD.S_ITS ---
PROCEDURE: XR HIP W PEL IF DONE RT 2V INDICATIONS: RT HIP/SPINE PAIN POST FALL TECHNIQUE: AP pelvis with lateral view(s) of the right hip(s). COMPARISON: [facility], CT, CT ABDOMEN PELVIS W CON, 07/07/2021, 17:08. [facility], CR, XR HIP 2 VIEWS WITH OR WITHOUT AP PELVIS RIGHT, 06/10/2018, 7:46. FINDINGS: Bones: Bones are diffusely osteopenic. There is incomplete visualization of the right femoral neck which appears foreshortened which may be related to internal rotation and overlying bony structures; however femoral neck fracture cannot entirely be excluded. There is symmetric hip joint space narrowing with periarticular osteophyte formation. Degenerative disc and facet disease involves the inferior lumbar spine. Soft tissues: The visualized bowel gas pattern is normal. No suspicious soft tissue calcifications. Lower abdominal surgical clips. IMPRESSION: 1. ? foreshortening of the right femoral neck which may be related to technique, but femoral neck fracture cannot be excluded. If there is suspicion for fracture, consider repeat examination or advanced imaging such as CT MRI for further assessment. Dictated by: Craig Anne [facility] Interpreted: Amarilys Hannon MD on 10/01/2021 at 16:08 Transcribed by: SCOUT on 10/01/2021 at 16:11 Approved by: Amarilys Hannon M.D. on 10/01/2021 at 16:49
--- NOTE | 2021-10-01 15:37 | DI.RAD.S_ITS ---
PROCEDURE: XR LUMBAR SPINE 2-3V INDICATIONS: RT HIP/SPINE PAIN POST FALL TECHNIQUE: 3 views of the lumbar spine were acquired. COMPARISON: None. FINDINGS: Bones: 5 [id number] vertebrae are present. There is normal bony alignment. No vertebral body compression fractures. No suspicious bony lesions. Mild to moderate L1-L2 degenerative disc changes. Mild L2-L3, L3-L4, L4-L5 and L5-S1 degenerative disc disease. Mild L5-S1 facet arthropathy. Soft tissues: Moderate amount of stool seen throughout the colon. Multiple surgical clips project over the abdomen/pelvis. No suspicious soft tissue calcifications. IMPRESSION: 1. Multilevel degenerative disc disease. 2. Mild L5-S1 facet arthropathy. 3. No fracture. No acute osseous lesion. If symptoms and/or clinical suspicion for pathology persists, evaluation with MRI should be considered for further assessment. Dictated by: Myrtle Manrique MD, PhD on 10/01/2021 at 16:38 Approved by: Myrtle Manrique MD, PhD on 10/01/2021 at 16:39
== END ==
PROVIDERS: PCP Family Medicine; Referring Provider Emergency Medicine; Visit Provider Emergency Medicine
DX: M51.36 Other intervertebral disc degeneration, lumbar region (principal); M51.37 Other intervertebral disc degeneration, lumbosacral region; M47.817 Spondylosis without myelopathy or radiculopathy, lumbosacral region; M25.551 Pain in right hip; M54.50 Low back pain, unspecified; R29.6 Repeated falls
CPT/HCPCS: 72100; 73502

== ENCOUNTER → 2021-11-04 15:26 | Outpatient (CLI) | payer MEDICARE, MEDICAID, SELFPAY ==
--- NOTE | 2021-11-04 15:57 | DI.RAD.S_ITS ---
PROCEDURE: XR FOOT LT 2V INDICATIONS: FOOT PAIN TECHNIQUE: Two views of the foot were acquired. COMPARISON: [facility], CR, XR FOOT RT MIN 3V, 09/19/2021, 17:13. FINDINGS: Bones: Decreased mineralization. No definite acute or subacute fractures or dislocations. No suspicious bony lesions. Soft tissues: No tibiotalar joint effusion. Achilles tendon appears normal. Small arterial vascular calcification. IMPRESSION: 1. Given diffuse demineralization, no visible acute or subacute fracture. 2. Peripheral vascular disease. Dictated by: Shawna Winn M.D. on 11/04/2021 at 16:31 Approved by: Shawna Winn M.D. on 11/04/2021 at 16:33
== END ==
PROVIDERS: PCP Family Medicine; Referring Provider Physician Assistant; Visit Provider Physician Assistant
DX: M79.672 Pain in left foot (principal); I73.9 Peripheral vascular disease, unspecified
CPT/HCPCS: 73620

== ENCOUNTER 2022-01-19 12:43 | Inpatient (IN) | payer OTHER, MEDICAID, SELFPAY ==
[2022-01-19] VITALS (20 sets, daily range): BP systolic 135–175; BP diastolic 62–79; PULSE 66–81; RESP 12–24; TEMP 36.6–36.9; O2SAT 91–97; BMI 22.6
--- NOTE | 2022-01-19 13:05 | ED_ITS ---
HPI - Neuro Symptoms/Deficit General Chief Complaint: Neuro Symptoms/Deficit Stated Complaint: Thinks Possible Stroke Time Seen by Provider: 01/19/22 12:56 Source: patient and family Mode of arrival: Wheelchair Limitations: no limitations History of Present Illness HPI Narrative: This is a 71-year-old female with known prior stroke with right-sided deficits which patient and state of improved she is normally ambulatory patient and states that she starting difficulty walking last night with incre ased weakness of her right arm and leg her thinks the right side of her face is a little bit more swollen and also that she might be droopy which is new. Patient normally has worn dentures in the past. Patient and family were initially equivocal about whether not she had slurred speech but after more discussion feel like she does have dysarthria. She denies headaches. 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 Patient states her vision was completely gone this morning but has improved back to her normal baseline. She denies chest pain or pressure. She denies headache. She is nauseated but no active vomiting. She describes some epigastric discomfort. She states she has been constipated had a bowel movement yesterday she has tingling in her right leg but describes neuropathy and states this isn't new. She can normally walk around her home and is not able to do so last night or today. She is on aspirin 325 mg. She lives at [facility] but was visiting her for the weekend. She does have a history of diabetes hypertension dyslipidemia with prior stroke. She has had hysterectomy with bilateral oophorectomy. Quit smoking tobacco in 2018 when she had her stroke. No alcohol, no illicit. Her primary care is Dr. Pressley. She does not follow with any specialty physicians. On Anticoagulants: Yes Related Data Home Medications Medication Instructions Recorded Confirmed furosemide 20 mg tablet 20 mg PO DAILY #0 08/12/17 09/14/18 aspirin 325 mg tablet 325 mg PO DAILY 08/10/18 08/25/18 atorvastatin 80 mg tablet 80 mg PO DAILY 08/10/18 09/14/18 biotin 1,000 mcg chewable tablet 1,000 mcg PO DAILY 08/10/18 09/14/18 clopidogrel 75 mg tablet 75 mg PO DAILY 08/10/18 09/14/18 coenzyme Q10 100 mg capsule (Co 100 mg PO DAILY 08/10/18 09/14/18 Q-10) diphenhydramine HCl 50 mg capsule 50 mg PO BEDTIME PRN 08/10/18 09/14/18 insulin glargine 100 unit/mL (3 20 units SUBCUT QPM 08/10/18 09/14/18 mL) subcutaneous pen magnesium 250 mg tablet 250 mg PO DAILY 08/10/18 09/14/18 metformin 500 mg tablet 1,000 mg PO QPM 08/10/18 09/14/18 metformin 500 mg tablet 1,500 mg PO QAM 08/10/18 09/14/18 metoprolol tartrate 50 mg tablet 50 mg PO BID 08/10/18 09/14/18 naproxen sodium 220 mg tablet 440 mg PO QAM 08/10/18 09/14/18 (Aleve) omeprazole 20 mg capsule,delayed 20 mg PO DAILY 08/10/18 09/14/18 release ondansetron HCl 4 mg tablet 4 mg PO Q6H PRN 08/10/18 09/14/18 trazodone 100 mg tablet 100 mg PO BEDTIME 08/10/18 09/14/18 benzonatate 100 mg capsule 1 cap PO TID PRN 08/25/18 09/14/18 diphenoxylate-atropine 2.5 1 tab PO QID PRN 08/25/18 09/14/18 mg-0.025 mg tablet glipizide 5 mg tablet 1 tab PO DAILY 08/25/18 09/14/18 losartan 50 mg tablet 50 mg PO DAILY 08/25/18 09/14/18 lovastatin 20 mg tablet 20 mg PO DAILY 09/14/18 09/14/18 oxybutynin chloride 5 mg tablet 5 mg PO BID 09/14/18 09/14/18 Previous Rx's Medication Instructions Recorded tramadol 50 mg tablet (Ultram) 50 mg PO Q6H PRN #5 tab 08/25/18 ciprofloxacin HCl 500 mg tablet 500 mg PO BID #14 tab 07/07/21 (Cipro) Allergies Allergy/AdvReac Type Severity Reaction Status Date / Time shellfish derived Allergy Severe anaphylaxis Verified 08/25/18 07:52 [SHELLFISH DERIVED] Penicillins [PENICILLINS] Allergy Intermediate affects Verified 08/25/18 07:52 breathing acetaminophen Allergy Unknown Verified 08/25/18 07:52 [From DARVOCET-N] morphine [MORPHINE] Allergy Unknown Verified 08/25/18 07:52 propoxyphene Allergy Unknown Verified 08/25/18 07:52 [From DARVOCET-N] Tetracyclines [TETRACYCLINES] Allergy Unknown Verified 08/25/18 07:52 ERYTHROMYCIN Allergy Mild Uncoded 08/25/18 07:52 HYDROCODONE Allergy Mild Uncoded 08/25/18 07:52 SULFA Allergy Mild Uncoded 08/25/18 07:52 Review of Systems Review of Systems ROS Unobtainable: All systems reviewed & are unremarkable except as noted in HPI and below Hematologic/Lymphatic On Anticoagulants: Yes Patient History Medical History (Updated 01/19/22 @ 14:59 by Heike Moy DO) CVA (cerebral vascular accident) Hyperlipidemia Hypertension Social History Smoking Status: Current some day smoker alcohol intake: never substance use type: does not use Smoking Status: Current some day smoker Substance Use Type: does not use Exam Narrative Exam Narrative: GEN: Elderly appearing female, alert and oriented x 3, patient appears to be in mild distress. HEENT: Atraumatic, pupils are equal round reactive to light, extraocular movements are intact, she has some slight swelling of the right upper eyelid but no warmth, erythema or skin changes, no drainage. Nares are clear, TMs are clear with no fluid, there is no conjunctival pallor. Throat is clear without any exudates, erythema, tonsillar enlargement or uvular deviation, patient does have some decreased movement on the right. Positive for dysarthria. HEART: Regular rate and rhythm without murmur, clicks, rubs. No carotid bruits, pulses are equal in upper and lower extremities LUNGS:Lungs clear to auscultation, no wheezes, rales, crackles, chest moves symmetrically ABD:bowel sounds normal, soft, non-tender, no guarding, rebound, rigidity, no masses noted, no hepatosplenomegaly :No CVA tenderness MSCL: Non-tender, no muscle atrophy, muscles strength 5/5 left upper lower extremities, patient has decreased use on the right upper extremity and right lower extremity she has difficulty lifting her leg and arm but has equal hand shoes sewer bilaterally with push and pull. Not tested. NEURO:CN 2-12 intact, patient appreciates decreased sensation to the right in comparison the left on exam, finger nose finger test normal left hand, abnormal on the right, heel roche test normal with left foot, patient has difficulty with her right leg. SKIN: Rash, erythema or other skin changes noted. Initial Vital Signs Initial Vital Signs: Vital Signs Temperature 97.8 F 01/19/22 12:56 Pulse Rate 72 01/19/22 12:56 Respiratory Rate 16 01/19/22 12:56 Blood Pressure 171/72 H 01/19/22 12:56 Pulse Oximetry 95 01/19/22 12:56 Scores NIH Stroke Scale Level of Conciousness: Alert, keenly responsive Ask month/age: Answers both questions correctly. Open/close eyes, close hand: Performs both tasks correctly Best gaze horizontal: Normal Visual francis: Complete hemianopia (baseline per patient) Facial palsy: Minor paralysis, flattened nasolabial fold, asymmetry on smiling Left arm drift: No drift for full 10 sec Right arm drift: Drifts down, not to bed Left leg drift: No drift for full 5 sec Right leg drift: Some effort against gravity, cannot maintain, drifts down to bed Limb ataxia: Present in two limbs Sensory on face/arms/legs: Mild to moderate sensory loss, can tell touch Best language: No aphasia, normal Dysarthria: Mild to mod,some slurring Extinction or inattention: No abnormality Total NIH Stroke scale score: 10 Course Orders Ordered: ED Orders 01/19/22 13:05 XR chest 1V Stat EKG-12 Lead Stat 01/19/22 13:23 CT angio head and neck Stat 01/19/22 13:35 Complete Blood Count AUTO DIFF Stat Comprehensive Metabolic Panel Stat Partial Thromboplastin Time Stat Prothrombin Time INR Stat Troponin & CK Cardiac Panel Stat 01/19/22 15:05 COVID19 -Nasal swab/Pre-Proc Stat 01/19/22 15:11 US renal complete Stat 01/19/22 15:20 UA Complete [Urinalysis and Microscopic] Stat Urine Culture Stat Urine Drug Screen, Rapid Stat Discontinued Medications Sodium Chloride (Normal Saline 0.9%) 1,000 mls @ 1,000 mls/hr IV BOLUS ONE Stop: 01/19/22 15:59 Last Infusion: 01/19/22 17:26 Dose: 0 mls/hr Documented by: Admin: 01/19/22 15:43 Dose: 1,000 mls/hr Documented by: EMILY Reevaluation(s) Reevaluation #1: Patient updated on imaging for head and neck angio. Labs show acute kidney inj ury. Patient has not urinated yet in the department. Discussed findings with patient. That we will do a bladder scan if she is retaining urine as she does not have sensation she needs to urinate she will need a Niño catheter. Patient states she has had kidney problems once before when related to an infection but states she does not normally have renal problems. Time: 15:13 Consultations Consultation #1: Dr. Douglas, hospitalist. Patient arrives today for concern for possible stroke she does have right-sided deficits but it is somewhat intermittent and she has prior right-sided deficit but describes decreased ability to ambulate today. She is far outside the tPA window, she is likely outside code stroke window as well her CT angio showed possible occlusion versus tortuosity so ultrasound was recommended. Head CT was negative. She was also found to have acute kidney injury with urinary retention and had 1L with catheterization. UA is pending. Vital Signs Vital signs: Vital Signs - 8 hr 01/19/22 12:56 01/19/22 13:52 01/19/22 14:00 Temperature 97.8 F Pulse Rate 72 69 69 Respiratory Rate 16 20 24 Blood Pressure 171/72 H Pulse Oximetry 95 97 96 01/19/22 14:15 01/19/22 14:20 01/19/22 14:30 Temperature Pulse Rate 68 67 68 Respiratory Rate 17 12 24 Blood Pressure 147/68 H 141/65 H Pulse Oximetry 94 93 93 01/19/22 14:40 01/19/22 15:00 01/19/22 15:21 Temperature Pulse Rate 66 66 71 Respiratory Rate 16 16 18 Blood Pressure 148/66 H 140/66 169/77 H Pulse Oximetry 92 91 94 01/19/22 15:30 01/19/22 15:40 01/19/22 16:00 Temperature Pulse Rate 67 68 68 Respiratory Rate 19 16 20 Blood Pressure 160/72 H 164/76 H Pulse Oximetry 93 93 93 01/19/22 16:20 01/19/22 16:30 Temperature Pulse Rate 67 66 Respiratory Rate 20 16 Blood Pressure 167/75 H Pulse Oximetry 93 93 MDM - Neuro Symptoms/Deficit Lab Data Result diagrams: 01/19/22 13:35 01/19/22 13:35 Labs: Lab Results 01/19/22 01/19/22 01/19/22 Range/Units 13:35 13:35 13:35 WBC 9.2 (4.5-11.0) X10^3/uL RBC 2.64 L (4.0-5.2) X10^6/uL Hgb 7.7 L (12.0-16.0) g/dL Hct 23.2 L (36-46) % MCV 87.8 (80-100) fL MCH 29.3 (26-34) PG MCHC 33.4 (30-36) % RDW 15.8 H (11.6-14.8) % Plt Count 303 (150-400) X10^3/uL Neut % (Auto) 72.3 (50-75) % Lymph % (Auto) 18.2 L (25-40) % [place] % (Auto) 7.5 (3-14) % Eos % (Auto) 1.7 L (2-4) % Baso % (Auto) 0.3 (0-2) % Neut # (Auto) 6700 (6488-7601) /uL Lymph # (Auto) 1700 (7970-5845) /uL [place] # (Auto) 700 (0-900) /uL Eos # (Auto) 200 (0-450) /uL Baso # (Auto) 0 (0-100) /uL PT 10.6 (10.1-12.7) SECONDS INR 0.9 (0.9-1.3) APTT 35 D (26.4-36.2) SECONDS Sodium 141 (137-145) mmol/L Potassium 5.3 H (3.4-5.1) mmol/L Chloride 115 H (98-107) mmol/L Carbon Dioxide 17 L (22-32) mmol/L BUN 63 H (7-17) mg/dL Creatinine 2.32 H (0.52-1.04) mg/dL Estimated GFR 20.7 L (>60) mL/min BUN/Creatinine Ratio 27.2 H (6-22) Glucose 114 H (80-110) mg/dL Calcium 8.7 (8.4-10.2) mg/dL Total Bilirubin 0.4 (0.2-1.3) mg/dL AST 27 (14-36) IU/L ALT 29 (<35) IU/L Alkaline Phosphatase 73 (38-126) U/L Total Creatine Kinase 67 (30-135) U/L CK-MB (CK-2) TNP CK-MB (CK-2) Rel Index TNP Troponin I < 0.012 (0.01-0.034) ng/mL Total Protein 7.0 (6.3-8.2) g/dL Albumin 3.8 (3.5-5.0) g/dL Globulin 3.2 (1.7-4.1) g/dL Albumin/Globulin Ratio 1.2 (1.0-2.8) Urine Color Urine Appearance Urine pH (4.5-8.0) Ur Specific [place] (1.000-1.035) Urine Protein (Negative) Urine Glucose (UA) (Negative) g/dL Urine Ketones (NEGATIVE) Urine Occult Blood (Negative) Urine Nitrate (Negative) Urine Bilirubin (NEGATIVE) Urine Urobilinogen (0.2) E.U./dL Ur Leukocyte Esterase (NEGATIVE) Urine RBC (0-5/HPF) Urine WBC (0-5/HPF) Ur Squamous Epith Cells (0-5/HPF) Urine Bacteria (None) Urine Yeast (None) Ur Culture Indicated? U Opiates 300ng/mL cut (Negative) Ur Oxycodone Screen (Negative) Urine Methadone Screen (Negative) Ur Barbiturates Screen (Negative) U Tricyclic Antidepress (Negative) Ur Phencyclidine Scrn (Negative) Ur Amphetamines Screen (Negative) U Methamphetamines Scrn (Negative) Ur MDMA Scrn (Ecstasy) (Negative) U Benzodiazepines Scrn (Negative) Urine Cocaine Screen (Negative) U Marijuana (THC) Screen (Negative) SARS-CoV-2 (PCR) (Negative) 01/19/22 01/19/22 01/19/22 Range/Units 15:05 15:20 15:20 WBC (4.5-11.0) X10^3/uL RBC (4.0-5.2) X10^6/uL Hgb (12.0-16.0) g/dL Hct (36-46) % MCV (80-100) fL MCH (26-34) PG MCHC (30-36) % RDW (11.6-14.8) % Plt Count (150-400) X10^3/uL Neut % (Auto) (50-75) % Lymph % (Auto) (25-40) % [place] % (Auto) (3-14) % Eos % (Auto) (2-4) % Baso % (Auto) (0-2) % Neut # (Auto) (0827-1424) /uL Lymph # (Auto) (5772-5264) /uL [place] # (Auto) (0-900) /uL Eos # (Auto) (0-450) /uL Baso # (Auto) (0-100) /uL PT (10.1-12.7) SECONDS INR (0.9-1.3) APTT (26.4-36.2) SECONDS Sodium (137-145) mmol/L Potassium (3.4-5.1) mmol/L Chloride (98-107) mmol/L Carbon Dioxide (22-32) mmol/L BUN (7-17) mg/dL Creatinine (0.52-1.04) mg/dL Estimated GFR (>60) mL/min BUN/Creatinine Ratio (6-22) Glucose (80-110) mg/dL Calcium (8.4-10.2) mg/dL Total Bilirubin (0.2-1.3) mg/dL AST (14-36) IU/L ALT (<35) IU/L Alkaline Phosphatase (38-126) U/L Total Creatine Kinase (30-135) U/L CK-MB (CK-2) CK-MB (CK-2) Rel Index Troponin I (0.01-0.034) ng/mL Total Protein (6.3-8.2) g/dL Albumin (3.5-5.0) g/dL Globulin (1.7-4.1) g/dL Albumin/Globulin Ratio (1.0-2.8) Urine Color Yellow Urine Appearance Clear Urine pH 5.0 (4.5-8.0) Ur Specific [place] 1.015 (1.000-1.035) Urine Protein 2+ H (Negative) Urine Glucose (UA) Negative (Negative) g/dL Urine Ketones Negative (NEGATIVE) Urine Occult Blood Negative (Negative) Urine Nitrate Negative (Negative) Urine Bilirubin Negative (NEGATIVE) Urine Urobilinogen 0.2 (0.2) E.U./dL Ur Leukocyte Esterase Trace H (NEGATIVE) Urine RBC 0-1/hpf (0-5/HPF) Urine WBC 30-100/hpf H (0-5/HPF) Ur Squamous Epith Cells 0-1 /hpf (0-5/HPF) Urine Bacteria Few (2-10) H (None) Urine Yeast 10-30/hpf H (None) Ur Culture Indicated? Specimen cultured U Opiates 300ng/mL cut Negative (Negative) Ur Oxycodone Screen Negative (Negative) Urine Methadone Screen Negative (Negative) Ur Barbiturates Screen Negative (Negative) U Tricyclic Antidepress Negative (Negative) Ur Phencyclidine Scrn Negative (Negative) Ur Amphetamines Screen Negative (Negative) U Methamphetamines Scrn Negative (Negative) Ur MDMA Scrn (Ecstasy) Negative (Negative) U Benzodiazepines Scrn Negative (Negative) Urine Cocaine Screen Negative (Negative) U Marijuana (THC) Screen Negative (Negative) SARS-CoV-2 (PCR) Negative (Negative) Point of Care Testing Glucose POC 120 Imaging Data CTA - brain/neck: Radiologist's Impression: [place] [address] CT Scan Report Signed Patient: Anu Escudero MR#: [id number] : 1950 Acct:[id number] Age/Sex: 71 / F Date of Service: 01/19/22 Loc: ED Accession Number: [id number] ?? Procedure: CT angio head and neck Ordering Provider: Heike Moy D.O. PROCEDURE:? CT ANGIO HEAD AND NECK ? INDICATIONS:? right sided weakness, hx cva w/ prior deficit but worse ? TECHNIQUE:? Pre-contrast 4.5 mm thick sections acquired from the foramen magnum to the vertex.? After the administration of intravenous contrast, 1 mm thick sections acquired from the aortic arch through the [place] of [place].? Post-contrast 4.5 mm thick sections then re- acquired from the foramen magnum to the vertex.? 3-dimensional maximu t-qtohbqhzf-ahuowdefyt (MIP) and/or volume rendering reformats were acquired of the central intracranial vasculature and neck separately. ? COMPARISON:? [facility], MR, MR BRAIN WITH/WITHOUT CONTRAST, 09/30/2018, 14:18. ? FINDINGS:? Image quality:? Excellent.? ? BRAIN:? CSF spaces:? Ventricles are normal in size and shape.? Basal cisterns are patent.? No extra-axial fluid collections.? ? Brain:? No midline shift.? No intracranial bleeds or masses.? Hernandez-white matter interface appears intact.? Moderate cerebral cortical volume loss for age.? Prominent periventricular and deep white matter hypodensity suggesting chronic microvascular ischemic change.? Focal left periventricular parietal lacunar infarct.? There is intracranial atherosclerotic change.? No suspicious enhancement postcontrast. ? Skull and face:? Calvarium and facial bones appear intact, without suspicious lesions.? Orbits appear normal.? ? Sinuses:? Sinuses and mastoids are clear.? ? HEAD CT ANGIOGRAPHY:? Anterior circulation:? Intracranial internal carotid arteries are normal in size and flow.? The flow within the paired anterior cerebral arteries is normal and symmetric.? The flow within the middle cerebral arteries is normal and symmetric.? The anterior communicating artery is seen.? No aneurysms are seen.? ? Posterior circulation:? Visualized portions of the vertebral arteries demonstrate normal caliber, and join to form a normal appearing basilar artery.? Flow within the posterior cerebral arteries is normal and symmetric.? No aneurysms are seen.? ? NECK CT ANGIOGRAPHY:? Carotid system:? Great vessels demonstrate variant anatomy of retroesophageal right subclavian artery.? Common carotid origins are normal.? There is moderate atherosclerotic change of the distal common carotid arteries bilaterally.? There is acute tortuosity as well as prominent atherosclerotic change of the proximal right internal carotid artery and there is probably high-grade stenosis at the genu, difficult to measure given vessel tortuosity.? Moderate calcification at the left carotid bulb and extending into the left ICA with a mild ICA origin stenosis.? Distally, the internal carotid arteries demonstrate normal calibers and courses.? ? Posterior circulation:? The origins of the vertebral arteries both appear widely patent.? The more superior extracranial portions of both vertebral arteries also demonstrate normal courses and calibers.? They join to form a normal appearing basilar artery.? ? Soft tissues:? Left thyroid cyst.? Visualized neck soft tissues demonstrate no suspicious abnormalities.? ? Bones:? No suspicious bony lesions.? Visualized cervical spine appears normally aligned.? IMPRESSION:? ? 1. No CT evidence of acute intracranial process. ? 2. Cerebral cortical volume loss and prominent chronic microvascular ischemic changes including left frontoparietal lacunar infarct. ? 3. Potentially high-grade stenosis at the right ICA origin, difficult to measure due to vessel tortuosity.? Consider ultrasound to assess for hemodynamic significance. ? 4. Normal intracranial arterial circulation without evidence of stenosis, aneurysm, or occlusion.? ? Any quantitative measurements of stenosis were performed using NASCET criteria.? ? ? Dictated by: Shawna Winn M.D. on 01/19/2022 at 14:19 ? ? Approved by: Shawna Winn M.D. on 01/19/2022 at 14:43? Chest x-ray: Radiologist's Impression: Launch?[place] [address] XRay Report Signed Patient: Anu Escudero MR#: [id number] : 1950 Acct:[id number] Age/Sex: 71 / F Date of Service: 01/19/22 Loc: ED Accession Number: [id number] ?? Procedure: XR chest 1V Ordering Provider: Heike Moy D.O. PROCEDURE:? XR CHEST 1V ? INDICATIONS:? Possible stroke ? TECHNIQUE:? One view of the chest was acquired.? ? COMPARISON:? [facility], , XR CHEST 1V, 07/14/2021, 12:21. ? FINDINGS:? ? Surgical changes and devices:? None.? ? Lungs and pleura:? Diffuse thickening of the interstitial markings and faint Kat B lines.? Mild right infrahilar alveolar opacity.? No dense consolidation, effusi on, or pneumothorax. ? Mediastinum:? Mediastinal contour is normal.? There is mild central venous co ngestion.? Heart is mildly enlarged. ? Bones and chest wall:? No suspicious bony lesions.? Overlying soft tissues appear unremarkable.? ? IMPRESSION:? ? 1. Findings suggestive of interstitial congestion, though pneumonitis may have this appearance. ? 2. Mild central venous congestion and borderline cardiomegaly.? Consider CHF as well.? Correlate with labs.? ? Dictated by: Shawna Winn M.D. on 01/19/2022 at 14:03 ? ? Approved by: Shawna Winn M.D. on 01/19/2022 at 14:04? renal US: Radiologist's Impression: [address] [address] Ultrasound Report Signed Patient: Anu Escudero MR#: [id number] : 1950 Acct:[id number] Age/Sex: 71 / F Date of Service: 01/19/22 Loc: ED Accession Number: [id number] ?? Procedure: US renal complete Ordering Provider: Heike Moy D.O. PROCEDURE:? US RENAL COMPLETE ? INDICATIONS:? YUMI; URINARY RETENTION ? TECHNIQUE:? Real-time scanning was performed of the kidneys and bladder, with image documentation.? ? COMPARISON:? [facility], US, US RENAL COMPLETE, 05/09/2021, 18:38.? [facility], CT, CT ANGIO HEAD AND NECK, 01/19/2022, 13:43.? [facility], CR, XR CHEST 1V, 01/19/2022, 13:41. ? FINDINGS:? ? Kidneys:? Kidneys are normal in size.? Right kidney measures 10.9 cm long; left kidney measures 9.9 cm long.? Right renal cortical thickness is 1.4 cm; left renal cortical thickness is 1.2 cm.? Renal cortical echotexture is normal.? No hydronephrosis or nephrolithiasis.? No suspicious solid mass lesions.? ? Bladder:? This patient has a Niño catheter, which limits evaluation.? ? Miscellaneous:? No free pelvic fluid.? ? ? IMPRESSION:? Negative for hydronephrosis. ? Normal appearing kidneys by ultrasound.? ? Dictated by: Ketan Johns M.D. on 01/19/2022 at 15:21 ? ? Approved by: Ketan Johns M.D. on 01/19/2022 at 15:22? ECG Data Attestation: I personally reviewed and interpreted this ECG as follows: Prior ECG tracings: available for review Interpretation: Accelerated junctional rhythm. Rate of 72 QRS 88, QTC of 462. No acute ST elevation depression noted. Patient was sinus rhythm on last EKG but does appear to be junctional rhythm today with P waves not appreciated at every beat but having a narrow complex QRS. MDM Narrative Medical decision making narrative: This is a 71-year-old female who comes for concern for stroke. Patient describes weakness on her right side and with ambulation. She has prior stroke with prior right-sided deficits but states she normally ambulates fine and did until last night. Her last known normal was sometime in the afternoon family and patient are very difficult to establish a timeline. Patient's NIH is 10 but she can intermittently lift her arm although she states she cannot and is able to brush her hair way. She has normal hand shoes sewer bilaterally. Gait was not tested. Patient was found to have acute kidney injury she was found to have acute urinary retention and had 1L out with Niño catheter. UA shows possible infection with some with dose of IV antibiotic. Patient was discussed with hospitalist who accepts for admission. Stroke Core Measures Exclusion Criteria TPA in CVA: Symptom Onset >3 or 4.5 Hours Discharge Plan Departure Patient Disposition: Admitted As Inpatient Clinical Impression: YUMI (acute kidney injury), Acute CVA (cerebrovascular accident) Admit Date/Time: 01/19/22 16:38 Admit Provider: Loyd Douglas
--- NOTE | 2022-01-19 13:05 | DI.RAD.S_ITS ---
PROCEDURE: XR CHEST 1V INDICATIONS: Possible stroke TECHNIQUE: One view of the chest was acquired. COMPARISON: [facility], CR, XR CHEST 1V, 07/14/2021, 12:21. FINDINGS: Surgical changes and devices: None. Lungs and pleura: Diffuse thickening of the interstitial markings and faint Kat B lines. Mild right infrahilar alveolar opacity. No dense consolidation, effusion, or pneumothorax. Mediastinum: Mediastinal contour is normal. There is mild central venous congestion. Heart is mildly enlarged. Bones and chest wall: No suspicious bony lesions. Overlying soft tissues appear unremarkable. IMPRESSION: 1. Findings suggestive of interstitial congestion, though pneumonitis may have this appearance. 2. Mild central venous congestion and borderline cardiomegaly. Consider CHF as well. Correlate with labs. Dictated by: Shawna Winn M.D. on 01/19/2022 at 14:03 Approved by: Shawna Winn M.D. on 01/19/2022 at 14:04
--- NOTE | 2022-01-19 13:23 | DI.CT.S_ITS ---
PROCEDURE: CT ANGIO HEAD AND NECK INDICATIONS: right sided weakness, hx cva w/ prior deficit but worse TECHNIQUE: Pre-contrast 4.5 mm thick sections acquired from the foramen magnum to the vertex. After the administration of intravenous contrast, 1 mm thick sections acquired from the aortic arch through the [place]. Post-contrast 4.5 mm thick sections then re-acquired from the foramen magnum to the vertex. 3-dimensional kztrnqr-htuddqlic-hhoxhuluxy (MIP) and/or volume rendering reformats were acquired of the central intracranial vasculature and neck separately. COMPARISON: [facility], MR, MR BRAIN WITH/WITHOUT CONTRAST, 09/30/2018, 14:18. FINDINGS: Image quality: Excellent. BRAIN: CSF spaces: Ventricles are normal in size and shape. Basal cisterns are patent. No extra-axial fluid collections. Brain: No midline shift. No intracranial bleeds or masses. Hernandez-white matter interface appears intact. Moderate cerebral cortical volume loss for age. Prominent periventricular and deep white matter hypodensity suggesting chronic microvascular ischemic change. Focal left periventricular parietal lacunar infarct. There is intracranial atherosclerotic change. No suspicious enhancement postcontrast. Skull and face: Calvarium and facial bones appear intact, without suspicious lesions. Orbits appear normal. Sinuses: Sinuses and mastoids are clear. HEAD CT ANGIOGRAPHY: Anterior circulation: Intracranial internal carotid arteries are normal in size and flow. The flow within the paired anterior cerebral arteries is normal and symmetric. The flow within the middle cerebral arteries is normal and symmetric. The anterior communicating artery is seen. No aneurysms are seen. Posterior circulation: Visualized portions of the vertebral arteries demonstrate normal caliber, and join to form a normal appearing basilar artery. Flow within the posterior cerebral arteries is normal and symmetric. No aneurysms are seen. NECK CT ANGIOGRAPHY: Carotid system: Great vessels demonstrate variant anatomy of retroesophageal right subclavian artery. Common carotid origins are normal. There is moderate atherosclerotic change of the distal common carotid arteries bilaterally. There is acute tortuosity as well as prominent atherosclerotic change of the proximal right internal carotid artery and there is probably high-grade stenosis at the genu, difficult to measure given vessel tortuosity. Moderate calcification at the left carotid bulb and extending into the left ICA with a mild ICA origin stenosis. Distally, the internal carotid arteries demonstrate normal calibers and courses. Posterior circulation: The origins of the vertebral arteries both appear widely patent. The more superior extracranial portions of both vertebral arteries also demonstrate normal courses and calibers. They join to form a normal appearing basilar artery. Soft tissues: Left thyroid cyst. Visualized neck soft tissues demonstrate no suspicious abnormalities. Bones: No suspicious bony lesions. Visualized cervical spine appears normally aligned. IMPRESSION: 1. No CT evidence of acute intracranial process. 2. Cerebral cortical volume loss and prominent chronic microvascular ischemic changes including left frontoparietal lacunar infarct. 3. Potentially high-grade stenosis at the right ICA origin, difficult to measure due to vessel tortuosity. Consider ultrasound to assess for hemodynamic significance. 4. Normal intracranial arterial circulation without evidence of stenosis, aneurysm, or occlusion. Any quantitative measurements of stenosis were performed using NASCET criteria. Dictated by: Shawna Winn M.D. on 01/19/2022 at 14:19 Approved by: Shawna Winn M.D. on 01/19/2022 at 14:43
[2022-01-19 13:45] LABS: Add Manual Diff / Slide Review NO; Basophils Absolute Auto 0 /uL (0-100); Basophils Percent Auto 0.3 % (0-2); Eosinophils Absolute Auto 200 /uL (0-450); Eosinophils Percent Auto 1.7 % (2-4); Lymphocytes Absolute Auto 1700 /uL (1100-4500); Lymphocytes Percent Auto 18.2 % (25-40); Mean Corpuscular HGB Conc 33.4 % (30-36); Mean Corpuscular Hemoglobin 29.3 PG (26-34); Mean Corpuscular Volume 87.8 fL (80-100); Monocytes Absolute Auto 700 /uL (0-900); Monocytes Percent Auto 7.5 % (3-14); Neutrophils Absolute Auto 6700 /uL (1500-7000); Neutrophils Percent Auto 72.3 % (50-75); Platelet Count 303 X10^3/uL (150-400); Red Blood Cell Count 2.64 X10^6/uL (4.0-5.2); Red Cell Distribution Width 15.8 % (11.6-14.8); White Blood Cell Count 9.2 X10^3/uL (4.5-11.0)
[2022-01-19 13:52] LABS: Hematocrit 23.2 % (36-46); Hemoglobin 7.7 g/dL (12.0-16.0)
[2022-01-19 13:58] LABS: INR 0.9 (0.9-1.3); Prothrombin Time 10.6 SECONDS (10.1-12.7)
[2022-01-19 14:01] LABS: PTT Partial Thromboplastin Tim 35 SECONDS (26.4-36.2)
[2022-01-19 14:05] LABS: Alanine Aminotransferase 29 IU/L (<35); Albumin 3.8 g/dL (3.5-5.0); Albumin Globulin Ratio 1.2 (1.0-2.8); Alkaline Phosphatase 73 U/L (38-126); Aspartate Aminotransferase 27 IU/L (14-36); BUN Creatinine Ratio 27.2 (6-22); Bilirubin Total 0.4 mg/dL (0.2-1.3); Blood Urea Nitrogen 63 mg/dL (7-17); Calcium 8.7 mg/dL (8.4-10.2); Carbon Dioxide 17 mmol/L (22-32); Chloride 115 mmol/L (98-107); Creatine Kinase 67 U/L (30-135); Estimated Glomerular Filt Rate 20.7 mL/min (>60); Globulin 3.2 g/dL (1.7-4.1); Glucose 114 mg/dL (80-110); HEMOLYSIS < 15 (0-50); Potassium 5.3 mmol/L (3.4-5.1); Sodium 141 mmol/L (137-145)
[2022-01-19 14:16] LABS: Troponin I < 0.012 ng/mL (0.01-0.034)
--- NOTE | 2022-01-19 15:11 | DI.US.S_ITS ---
PROCEDURE: US RENAL COMPLETE INDICATIONS: YUMI; URINARY RETENTION TECHNIQUE: Real-time scanning was performed of the kidneys and bladder, with image documentation. COMPARISON: [facility], US, US RENAL COMPLETE, 05/09/2021, 18:38. Merged With [facility], CT, CT ANGIO HEAD AND NECK, 01/19/2022, 13:43. Merged With [facility], CR, XR CHEST 1V, 01/19/2022, 13:41. FINDINGS: Kidneys: Kidneys are normal in size. Right kidney measures 10.9 cm long; left kidney measures 9.9 cm long. Right renal cortical thickness is 1.4 cm; left renal cortical thickness is 1.2 cm. Renal cortical echotexture is normal. No hydronephrosis or nephrolithiasis. No suspicious solid mass lesions. Bladder: This patient has a Niño catheter, which limits evaluation. Miscellaneous: No free pelvic fluid. IMPRESSION: Negative for hydronephrosis. Normal appearing kidneys by ultrasound. Dictated by: Ketan Johns M.D. on 01/19/2022 at 15:21 Approved by: Ketan Johns M.D. on 01/19/2022 at 15:22
[2022-01-19 15:32] LABS: Appearance Urine UA CLEAR; Bilirubin Urine UA NEGATIVE (NEGATIVE); Color Urine UA YELLOW; Glucose Urine UA NEGATIVE (Negative); Ketones Urine UA NEGATIVE (NEGATIVE); Leukocyte Esterase Urine UA TRACE (NEGATIVE); Nitrite Urine UA NEGATIVE (Negative); Occult Blood Urine UA NEGATIVE (Negative); Protein Urine UA 2+ (Negative); Specific Gravity Urine UA 1.015 (1.000-1.035); Urobilinogen Urine UA 0.2 E.U./dL (0.2)
[2022-01-19 15:43] LABS: Ur Creatinine Normal (Normal); Ur Specific Gravity Normal (Normal); Urine pH Normal (Normal)
[2022-01-19] MEDS: SODIUM CHLORIDE 0.9% 1,000 ML 1000 ML IV (15:43)
[2022-01-19 15:44] LABS: UR Morphine/Opiate cutoff 300 Negative (Negative); Urine Amphetamines Negative (Negative); Urine Barbiturates Negative (Negative); Urine Benzodiazepines Negative (Negative); Urine Cocaine Negative (Negative); Urine MDMA Negative (Negative); Urine Methadone Negative (Negative); Urine Methamphetamines Negative (Negative); Urine Oxycodone Negative (Negative); Urine Phencyclidine Negative (Negative); Urine Tetrahydrocannabinol Negative (Negative); Urine Tricyclic Antidepressant Negative (Negative)
[2022-01-19 15:48] LABS: RBC Urine 0-1/HPF (0-5/HPF); WBC Urine 30-100/HPF (0-5/HPF)
[2022-01-19 15:49] LABS: Bacteria Urine Few (2-10); Culture Indicated Urine Specimen Cultured; Squamous Epithelial Cell Urine 0-1 /HPF (0-5/HPF)
[2022-01-19 16:18] LABS: COVID19 -Nasal RAPID Negative (Negative)
[2022-01-19 19:29] LABS: BUN Creatinine Ratio 28.3 (6-22); Blood Urea Nitrogen 60 mg/dL (7-17); Calcium 8.2 mg/dL (8.4-10.2); Carbon Dioxide 16 mmol/L (22-32); Chloride 117 mmol/L (98-107); Glucose 112 mg/dL (80-110); HEMOLYSIS < 15 (0-50); Potassium 4.9 mmol/L (3.4-5.1); Sodium 139 mmol/L (137-145)
[2022-01-19] MEDS: AZTREONAM 1 GM in DEXTROSE 5 % IN WATER 50 ML 100 ML IV (20:46)
[2022-01-19] MEDS: SODIUM CHLORIDE 0.9% 250 ML 21 ML IV (20:49)
[2022-01-19 22:11] LABS: Hemoglobin A1C% w Est Avg Glu 5.6 % (4.0-6.0)
[2022-01-20] VITALS (13 sets, daily range): BP systolic 135–151; BP diastolic 59–88; PULSE 64–76; RESP 12–18; TEMP 36.3–36.9; O2SAT 92–96
--- NOTE | 2022-01-20 | DI.US.S_ITS ---
PROCEDURE: US CAROTID DOPPLER BI INDICATIONS: ABNORMAL CT TECHNIQUE: Color and pulse Doppler interrogation was performed of both carotid systems, with image documentation and velocity measurements. COMPARISON: [facility], CT, CT ANGIO HEAD AND NECK, 01/19/2022, 13:43. FINDINGS: Stenosis calculations are based on SRU (Society of Radiologists in Ultrasound) criteria. The flow velocities and the arterial waveforms are normal within both carotid arterial systems. Atherosclerotic plaque is seen on both sides, left worse than right. The estimated degree of internal carotid artery stenosis is less than 50%. Antegrade flow is confirmed within both vertebral arteries. IMPRESSION: No hemodynamically significant stenosis is seen. The apparent right proximal ICA origin stenosis suspected on the 01/19/2022 CT angiogram examination is not confirmed on these images. Atherosclerotic plaque is noted bilaterally, left worse than right. Dictated by: Ketan Johns M.D. on 01/20/2022 at 9:32 Approved by: Ketan Johns M.D. on 01/20/2022 at 9:33
--- NOTE | 2022-01-20 00:48 | P.HP_ITS ---
History of Present Illness History of Present Illness Date Patient Seen: 01/20/22 Time Patient Seen: 00:48 Chief complaint: Thinks Possible Stroke Narrative: Anu Escudero is a 71 year old resident of [facility] with a prior history of stroke with right-sided deficits, diabetes type 2, coronary artery disease on dual anti-platelet therapy, and essential hypertension was apparently spending the weekend with her in their own home when she developed increased weakness of her right arm and leg, facial droop, and dysarthria. She is normally ambulatory. She was apparently going to the bathroom and returning to the bedroom when she developed swelling in the left side of her face and then found that she had a right-sided droop and felt weak on the right and I am unable to lift her leg. 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 She does deny chest pain, she is a little bit nauseous but does not have the need to vomit, she states that she has chronic constipation, and she has a over 200 year pack history having smoked from the age of 8 till approximately 4 years ago when she had her 1st stroke, smoking 4 packs a day. 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 Chest x-ray in the emergency department noted interstitial congestion question pneumonitis, mild central venous congestion and borderline cardiomegaly recommended consideration of CHF. CT of the brain and noted ?Brain:? No midline shift.? No intracranial bleeds or masses.? Hernandez-white matter interface appears intact.? Moderate cerebral cortical volume loss for age.? Prominent periventricular and deep white matter hypodensity suggesting chronic microvascular ischemic change.? Focal left periventricular parietal lacunar infarct.? There is intracranial atherosclerotic change.? No suspicious enhancement postcontrast.And also noted moderate atherosclerotic change of the proximal right internal carotid artery with probable high-grade stenosis at the genu, difficult to measure given vessel tortuosity. There is also moderate calcification of the left carotid bulb extending into the left ICA with a mild ICA origin stenosis. Renal ultrasound was negative for hydronephrosis. Patient is afebrile, highest blood pressure on admission was 171/72 heart rate 72, respiratory rate 16, oxygen saturation of 93% on room air, she weighs 52.6 kg the BMI of 22.6. She is a bit anemic with a hemoglobin and hematocrit of 7.7 and 23.2, sodium 139, potassium 4.9, chloride 117, bicarb 16, BUN 60, creatinine 2.12, with a EGFR of 23, glucose 112, A1c is 5.6, rest of her chemistries are within normal limits, UA is negative for UTI, though there is a presence of yeast in her urine, urine toxicology is negative, and COVID-19 PCR is negative. 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 Facility Safety & Behavioral: Feels Safe in Current Yes Environment Been Physically Hurt or No Threatened By a Person Suicidal Ideation Description None Suicide Plan Description No Plan Tobacco & Substance use: Tobacco type cigarettes Smoking Status Former smoker Smoking packs per day 4, greater than and 200 pack years alcohol intake never Substance Use Type does not use Comment: Smoked from the age of 8 until 67 years of age Meds Home Medications and Allergies Home Medications Medication Instructions Recorded Confirmed Type furosemide 20 mg tablet 20 mg PO DAILY #0 08/12/17 09/14/18 History aspirin 325 mg tablet 325 mg PO DAILY 08/10/18 08/25/18 History atorvastatin 80 mg tablet 80 mg PO DAILY 08/10/18 09/14/18 History biotin 1,000 mcg chewable tablet 1,000 mcg PO DAILY 08/10/18 09/14/18 History clopidogrel 75 mg tablet 75 mg PO DAILY 08/10/18 09/14/18 History coenzyme Q10 100 mg capsule (Co 100 mg PO DAILY 08/10/18 09/14/18 History Q-10) diphenhydramine HCl 50 mg capsule 50 mg PO BEDTIME PRN 08/10/18 09/14/18 History insulin glargine 100 unit/mL (3 20 units SUBCUT QPM 08/10/18 09/14/18 History mL) subcutaneous pen magnesium 250 mg tablet 250 mg PO DAILY 08/10/18 09/14/18 History metformin 500 mg tablet 1,000 mg PO QPM 08/10/18 09/14/18 History metformin 500 mg tablet 1,500 mg PO QAM 08/10/18 09/14/18 History metoprolol tartrate 50 mg tablet 50 mg PO BID 08/10/18 09/14/18 History naproxen sodium 220 mg tablet 440 mg PO QAM 08/10/18 09/14/18 History (Aleve) omeprazole 20 mg capsule,delayed 20 mg PO DAILY 08/10/18 09/14/18 History release ondansetron HCl 4 mg tablet 4 mg PO Q6H PRN 08/10/18 09/14/18 History trazodone 100 mg tablet 100 mg PO BEDTIME 08/10/18 09/14/18 History benzonatate 100 mg capsule 1 cap PO TID PRN 08/25/18 09/14/18 History diphenoxylate-atropine 2.5 1 tab PO QID PRN 08/25/18 09/14/18 History mg-0.025 mg tablet glipizide 5 mg tablet 1 tab PO DAILY 08/25/18 09/14/18 History losartan 50 mg tablet 50 mg PO DAILY 08/25/18 09/14/18 History tramadol 50 mg tablet (Ultram) 50 mg PO Q6H PRN #5 tab 08/25/18 09/14/18 Rx lovastatin 20 mg tablet 20 mg PO DAILY 09/14/18 09/14/18 History oxybutynin chloride 5 mg tablet 5 mg PO BID 09/14/18 09/14/18 History ciprofloxacin HCl 500 mg tablet 500 mg PO BID #14 tab 07/07/21 Rx (Cipro) Allergies Allergy/AdvReac Type Severity Reaction Status Date / Time shellfish derived Allergy Severe anaphylaxis Verified 08/25/18 07:52 [SHELLFISH DERIVED] Penicillins [PENICILLINS] Allergy Intermediate affects Verified 08/25/18 07:52 breathing acetaminophen Allergy Unknown Verified 08/25/18 07:52 [From DARVOCET-N] morphine [MORPHINE] Allergy Unknown Verified 08/25/18 07:52 propoxyphene Allergy Unknown Verified 08/25/18 07:52 [From DARVOCET-N] Tetracyclines [TETRACYCLINES] Allergy Unknown Verified 08/25/18 07:52 ERYTHROMYCIN Allergy Mild Uncoded 08/25/18 07:52 HYDROCODONE Allergy Mild Uncoded 08/25/18 07:52 SULFA Allergy Mild Uncoded 08/25/18 07:52 Review of Systems Review of Systems ROS: Yes All systems reviewed with the patient and are negative except as otherwise documented Exam Vital Signs (past 8 hours): - 01/19/22 17:00 01/19/22 17:20 01/19/22 18:08 Temperature Pulse Rate 70 67 69 Respiratory Rate 20 18 19 Blood Pressure 169/76 H 160/73 H 156/72 H Pulse Oximetry 92 93 93 01/19/22 18:20 01/19/22 23:30 Temperature 98.0 F 98.4 F Pulse Rate 81 76 Respiratory Rate 18 18 Blood Pressure 135/62 149/79 H Pulse Oximetry 93 93 Oxygen Delivery Method Nasal Cannula Oxygen Flow Rate 2 Narrative Exam Narrative: Gen: Alert, oriented, well nourished 71 y.o. female, appears older than stated age HEENT: normocephalic, atraumatic, conjunctiva clear, sclera non-icteric, oral mucosa pink and moist Neck: supple, full ROM, no JVD, trachea is midline Resp: Lungs CTA, non-labored breathing CV: Irregularly irregular, no murmur or rubs Abd: soft, non-tender, normoactive BTs Skin: no lesions or rashes, dry and intact Neuro: Alert and oriented X 4 she has significant weakness on her right side. Initially her NIH score was 10 and currently it is 13. Unknown how reliable the scoring is due to the patient's prior stroke deficiencies. Speech clear and coherent. Extremities: Right-sided upper and lower extremity weakness. Is not ambulatory at this time negative Linda?s sign Psyche: normal mood and affect. Objective Labs Result Diagrams: 01/19/22 13:35 01/19/22 19:10 Labs: Laboratory Results - last 24 hr 01/19/22 01/19/22 01/19/22 13:35 13:35 13:35 WBC 9.2 RBC 2.64 L Hgb 7.7 L Hct 23.2 L MCV 87.8 MCH 29.3 MCHC 33.4 RDW 15.8 H Plt Count 303 Neut % (Auto) 72.3 Lymph % (Auto) 18.2 L [place] % (Auto) 7.5 Eos % (Auto) 1.7 L Baso % (Auto) 0.3 Neut # (Auto) 6700 Lymph # (Auto) 1700 [place] # (Auto) 700 Eos # (Auto) 200 Baso # (Auto) 0 PT 10.6 INR 0.9 APTT 35 D Sodium 141 Potassium 5.3 H Chloride 115 H Carbon Dioxide 17 L BUN 63 H Creatinine 2.32 H Estimated GFR 20.7 L BUN/Creatinine Ratio 27.2 H Glucose 114 H Hemoglobin A1c Calcium 8.7 Total Bilirubin 0.4 AST 27 ALT 29 Alkaline Phosphatase 73 Total Creatine Kinase 67 CK-MB (CK-2) TNP CK-MB (CK-2) Rel Index TNP Troponin I < 0.012 Total Protein 7.0 Albumin 3.8 Globulin 3.2 Albumin/Globulin Ratio 1.2 Urine Color Urine Appearance Urine pH Ur Specific [place] Urine Protein Urine Glucose (UA) Urine Ketones Urine Occult Blood Urine Nitrate Urine Bilirubin Urine Urobilinogen Ur Leukocyte Esterase Urine RBC Urine WBC Ur Squamous Epith Cells Urine Bacteria Urine Yeast Ur Culture Indicated? U Opiates 300ng/mL cut Ur Oxycodone Screen Urine Methadone Screen Ur Barbiturates Screen U Tricyclic Antidepress Ur Phencyclidine Scrn Ur Amphetamines Screen U Methamphetamines Scrn Ur MDMA Scrn (Ecstasy) U Benzodiazepines Scrn Urine Cocaine Screen U Marijuana (THC) Screen SARS-CoV-2 (PCR) 01/19/22 01/19/22 01/19/22 13:35 15:05 15:20 WBC RBC Hgb Hct MCV MCH MCHC RDW Plt Count Neut % (Auto) Lymph % (Auto) [place] % (Auto) Eos % (Auto) Baso % (Auto) Neut # (Auto) Lymph # (Auto) [place] # (Auto) Eos # (Auto) Baso # (Auto) PT INR APTT Sodium Potassium Chloride Carbon Dioxide BUN Creatinine Estimated GFR BUN/Creatinine Ratio Glucose Hemoglobin A1c 5.6 Calcium Total Bilirubin AST ALT Alkaline Phosphatase Total Creatine Kinase CK-MB (CK-2) CK-MB (CK-2) Rel Index Troponin I Total Protein Albumin Globulin Albumin/Globulin Ratio Urine Color Yellow Urine Appearance Clear Urine pH 5.0 Ur Specific [place] 1.015 Urine Protein 2+ H Urine Glucose (UA) Negative Urine Ketones Negative Urine Occult Blood Negative Urine Nitrate Negative Urine Bilirubin Negative Urine Urobilinogen 0.2 Ur Leukocyte Esterase Trace H Urine RBC 0-1/hpf Urine WBC 30-100/hpf H Ur Squamous Epith Cells 0-1 /hpf Urine Bacteria Few (2-10) H Urine Yeast 10-30/hpf H Ur Culture Indicated? Specimen cultured U Opiates 300ng/mL cut Ur Oxycodone Screen Urine Methadone Screen Ur Barbiturates Screen U Tricyclic Antidepress Ur Phencyclidine Scrn Ur Amphetamines Screen U Methamphetamines Scrn Ur MDMA Scrn (Ecstasy) U Benzodiazepines Scrn Urine Cocaine Screen U Marijuana (THC) Screen SARS-CoV-2 (PCR) Negative 01/19/22 01/19/22 15:20 19:10 WBC RBC Hgb Hct MCV MCH MCHC RDW Plt Count Neut % (Auto) Lymph % (Auto) [place] % (Auto) Eos % (Auto) Baso % (Auto) Neut # (Auto) Lymph # (Auto) [place] # (Auto) Eos # (Auto) Baso # (Auto) PT INR APTT Sodium 139 Potassium 4.9 Chloride 117 H Carbon Dioxide 16 L BUN 60 H Creatinine 2.12 H Estimated GFR 23.0 L BUN/Creatinine Ratio 28.3 H Glucose 112 H Hemoglobin A1c Calcium 8.2 L Total Bilirubin AST ALT Alkaline Phosphatase Total Creatine Kinase CK-MB (CK-2) CK-MB (CK-2) Rel Index Troponin I Total Protein Albumin Globulin Albumin/Globulin Ratio Urine Color Urine Appearance Urine pH Ur Specific [place] Urine Protein Urine Glucose (UA) Urine Ketones Urine Occult Blood Urine Nitrate Urine Bilirubin Urine Urobilinogen Ur Leukocyte Esterase Urine RBC Urine WBC Ur Squamous Epith Cells Urine Bacteria Urine Yeast Ur Culture Indicated? U Opiates 300ng/mL cut Negative Ur Oxycodone Screen Negative Urine Methadone Screen Negative Ur Barbiturates Screen Negative U Tricyclic Antidepress Negative Ur Phencyclidine Scrn Negative Ur Amphetamines Screen Negative U Methamphetamines Scrn Negative Ur MDMA Scrn (Ecstasy) Negative U Benzodiazepines Scrn Negative Urine Cocaine Screen Negative U Marijuana (THC) Screen Negative SARS-CoV-2 (PCR) Assessment & Plan Assessment & Plan narrative: Anu Escudero is admitted for further evaluation workup of a CVA. 1. CVA, acute, present on admission * She was outside of the time window for tPA * CT of the head does show what appears to be old encephalomalacia * MRI of the head scheduled for later today * Serial NIHs * She has passed her swallow evaluation * PT/OT/speech therapy * Patient may benefit from acute rehab and may need to be transferred from [facility] to another more appropriate facility * NIH score greater than 5 [X]yes NIH scoring and neuro checks q 4 hours * Dual antiplatelet therapy: No, start low dose asprin and adding plavix * MR stroke scheduled for today * Complete Echo with bubble study for today * Doppler ultrasound of right carotid to determine severity of stenosis 2.Hypertension, acute with an admission bp of 171/72, present on admission * Allow for permissive hypertension of 220/110 HR 60 to allow for brain perfusion * IV labetolol if his systolic exceeds 220 or diastolic greater than 105. * She may resume her home doses of carvedilol and amlodipine in 24-48 hours 3. HLD * Fasting lipid panel, pending for 0500 labs * Atorvastatin 80 mg po at bedtime 4. Urinary tract infection, acute, present on admission * Patient was initially administered IV Cipro in the emergency department but due to her current YUMI this was changed * She has been initiated on IV aztreonam 1 g IV q.8 hours 5. Acute kidney injury, present on admission * Creatinine of 2.12 is greater than her baseline * Hydrate gently with normal saline at 100 mL/hour Risk stratification * Fasting lipid panel pending for the morning * A1c is 5.6, well controlled VTE Prophylaxis: Wells risk score 0 [X] Bilateral SCDs, consider VTE prophylaxis if determined that bleeding risk is low Patient is admitted to the inpatient service due to the severity of disease, risks of further disease progression and this stay is expected to exceed 2 m idnights. FEN: IV fluids: Normal saline at 100 mL/hour diet: carb controlled diet, labs: CBC, C/BMP, liver enzymes, Mag Consultants None Dispo: patient is a candidate for acute rehab, though prior deficits may be a barrier Code status: Full Code as discussed with the patient who identifies her Dirk her surrogate and POA. [X] I have utilized all available immediate resources to obtain, update, or review of the patient's current medications COVID-19 COVID-19 status: Negative Result date/Date tested (Pos, Neg/Pending): 01/20/22 Time Spent With Patient Critical Care time: I spent a total of [] minutes of critical care time on this patient's care today; this time is exclusive of procedural time. Scores Wells' Criteria for PE Clinical signs and symptoms of DVT: No PE is #1 Dx or equally likely: No Heart rate > 100: No Immobilization at least 3 days or surg in previous 4 weeks: No History of PE or DVT: No Hemoptysis: No Malignancy w/Treatment within 6 months or palliative: No Wells' PE Score total: 0 Quality Stroke Contraindication Not Initiating IV-Tpa: Contraindicated (Outside of window) Onset of Symptoms Date: 01/20/22 Symptom Onset Unknown: Yes Rehab Services Assessed: Stroke rehabilitation VTE Deep Vein Thrombosis/Pulmonary Embolism Present on Admission: No MIPS - Admit I confirm the patient?s Advance Care Plan is present, Code status is documented, Surrogate decision maker is in patient?s record [If Yes, STOP here]: Yes MIPS - DC The patient has current or prior documentation of left ventricular ejection fraction (LVEF) less than 40%, or moderate or severely depressed left ventricular systolic function.: No
[2022-01-20] MEDS: AZTREONAM 1 GM in DEXTROSE 5 % IN WATER 50 ML 100 ML IV ×3 (03:03→22:33)
[2022-01-20 05:56] LABS: BUN Creatinine Ratio 27.5 (6-22); Blood Urea Nitrogen 57 mg/dL (7-17); Calcium 7.9 mg/dL (8.4-10.2); Carbon Dioxide 17 mmol/L (22-32); Chloride 113 mmol/L (98-107); Estimated Glomerular Filt Rate 23.6 mL/min (>60); Glucose 103 mg/dL (80-110); HEMOLYSIS < 15 (0-50); Potassium 4.9 mmol/L (3.4-5.1); Sodium 136 mmol/L (137-145)
[2022-01-20 06:00] LABS: Add Manual Diff / Slide Review NO; Basophils Absolute Auto 0 /uL (0-100); Basophils Percent Auto 0.5 % (0-2); Eosinophils Absolute Auto 100 /uL (0-450); Eosinophils Percent Auto 1.6 % (2-4); Lymphocytes Absolute Auto 1600 /uL (1100-4500); Lymphocytes Percent Auto 20.7 % (25-40); Mean Corpuscular HGB Conc 32.7 % (30-36); Mean Corpuscular Volume 88.9 fL (80-100); Monocytes Absolute Auto 700 /uL (0-900); Monocytes Percent Auto 9.3 % (3-14); Neutrophils Absolute Auto 5400 /uL (1500-7000); Neutrophils Percent Auto 67.9 % (50-75); Platelet Count 251 X10^3/uL (150-400); Red Blood Cell Count 2.26 X10^6/uL (4.0-5.2); Red Cell Distribution Width 15.7 % (11.6-14.8); White Blood Cell Count 7.9 X10^3/uL (4.5-11.0)
[2022-01-20 06:03] LABS: NT-proBNP (BNP-Adult 18+) 4280 pg/mL (<125)
[2022-01-20 06:11] LABS: Hemoglobin 6.6 g/dL (12.0-16.0)
[2022-01-20 06:12] LABS: Hematocrit 20.1 % (36-46)
[2022-01-20 06:30] LABS: Thyroid Stimulating Hormone 3.88 uIU/mL (0.47-4.68)
[2022-01-20] MEDS: SODIUM CHLORIDE 0.9% 1,000 ML 100 ML IV (06:43)
[2022-01-20] MEDS: carvediloL 12.5 MG TABLET 25 MG PO ×2 (08:42→21:19)
[2022-01-20] MEDS: ACETAMINOPHEN 325 MG TABLET 650 MG PO (08:43)
[2022-01-20] MEDS: OXYBUTYNIN 5 MG TABLET PO ×2 (08:43→21:20)
[2022-01-20] MEDS: PANTOPRAZOLE 40 MG VIAL IV ×2 (08:43→21:20)
[2022-01-20] MEDS: ATORVASTATIN 20 MG TABLET 80 MG PO (08:43)
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
--- NOTE | 2022-01-20 09:34 | OT.IPNOTE ---
Ot eval and treat received. Pt with H&H of 6.6 & 21.1 with plans for transfusion. Will check back.
--- NOTE | 2022-01-20 11:52 | PT-IP ANOTE ---
Received PT orders and reviewed the chart. H&H 6.6/20.1. Pt was discussed at AM interdisciplinary rounds and hospitalist requested PT hold evaluation today and check back tomorrow after pt receives two units blood. Will continue to follow.
[2022-01-20] MEDS: FUROSEMIDE 20 MG/2 ML VIAL IV (12:07)
--- NOTE | 2022-01-20 12:13 | DIET.CONS ---
Dietary Consultation Note Admission Date: 01/19/2022 16:38 Assessment: 71y F resident of [facility] admitted for stroke r/o, YUMI and anemia (received 2 units PRBCs) referred to nutrition for poor POs since previous stroke. RD visited pt at bedside after Unit Host alerted pt refused breakfast this morning stating she cannot eat it. Unit Host got pt box Rice Crispies with milk as alternate which pt was happy with. Pt states she has Cheerios or Rice Crispies for breakfast and dinner daily, states this is all facility will give her. When inquiring why this may be happening, pt reports she is allergic to eggs, cannot eat red meat or cured meats like buckley, ham, or sausage. Pts chart does not indicate these eating preferences, RD added egg to allergy list (averse reaction) and added no red meat or cured meat to dietary preferences in chart and alerted kitchen. Additionally, pt was avoiding dairy for some time as someone told her it was constipating. Pt goes to [employer] often with partner, loves [place] food at lunchtime. Upon chart review, pt has non-severe weight loss of 9% over 6mo. This weight loss could be related to avoidance of high protein foods (dairy, red meat, cured meats), diet consisting of cold breakfast cereal bid, as well as right-sided deficits noted with self-feeding since prior stroke. Pt dislikes ONS shakes and yogurt but she does enjoy cottage cheese. Ht: 152.4 cm Wt: 52.617 kg BMI: 22.6 UBW: 58kg (07/23) Last BM: 01/17/22 (01/19/22 20:54) MNA: 10 Huy Score: 16 Diet: 01/20/22 Breakfast Carbohydrate Consistent Diet Diet Modifications: Carbohydrate level: Large (4 CHO) Bedtime snack: Yes 01/20/22 Dinner Dysphagia Diet Diet Modifications: 45g CHO, no eggs, red meat or cured meat Safety Tray needed?: No Liquid consistency: Normal/Thin Food texture: Dysphagia Mechanical Soft Nutrition Percent Meal Consumed 25% 01/20/22 11:11 Labs: RBC 2.26 X10^6/uL (4.0-5.2) L 01/20/22 04:57 Hgb 6.6 g/dL (12.0-16.0) L* 01/20/22 04:57 Hct 20.1 % (36-46) L* 01/20/22 04:57 Creatinine 2.07 mg/dL (0.52-1.04) H 01/20/22 04:57 Hemoglobin A1c 5.6 % (4.0-6.0) 01/19/22 13:35 NT-Pro-B Natriuret Pep 4280 pg/mL (<125) H 01/20/22 04:57 Nutrition Diagnosis: unintentional weight loss r/t difficulty self feeding, undesirable food choices, food allergies limiting PO intake aeb pt with 9% unintentional weight loss in 6mo (non-severe), pt with difficulty self-feeding after prior stroke, pt reports eating breakfast cereal for breakfast and dinner daily, pt avoids eggs, red meat, cured meats, and had avoided dairy for some time. Interventions: 1. To support pts nutrition status, educated pt on high protein alternatives at meal times including cottage cheese c breakfast, chicken/turkey/fish at lunch and dinner. 2. Discussed not avoiding dairy to manage constipation, rather focus on staying hydrated throughout the day and eating foods high in fiber (oatmeal, nieves soups, berries). 3. Worked c pt and kitchen to curate supportive meals while hospitalized. EER: 1300kcals (25kcal/kg), 50g PRO (0.9g/kg elder) Monitoring/Evaluations: POs Electronically Signed by: Garima Buck 01/20/22 12:13 Clinical Dietitian [address] [address]
[2022-01-20] MEDS: AMLODIPINE 5 MG TABLET 10 MG PO (13:11)
[2022-01-20] MEDS: INSULIN LISPRO 100 UNIT/ML 3ML VIAL SUBCUT (13:12)
--- NOTE | 2022-01-20 15:42 | PC.NURSE ---
Patient is pleasant and cooperative with care, She has right sided deficit from a CVA a few years ago. Patient is aphasic when speaking. She has a r.facial droop and her r.arm is slightly contractured and weak. She is able to lift her arm up a small amount but it does drift down slightly but does not hit the bed. She can lift both of her legs up at the count to 10. Patient is a one to two person assist with transfer per patient she can pivot but does not walk much. Her first unit of blood is done and now her second unit is up and going to finish soon. Patient is comfortable and denies pain. She does not like where she currently lives at [facility] and wants to move closer to her in [place], she was mentioning [facility].
--- NOTE | 2022-01-20 15:50 | CM.DANOTE ---
DCP: Case received, EMR reviewed and met with patient. Introduced self and role. Was able to obtain information from patient regarding her recent activity level at her baseline. Did obtain further information from spouse (with patient's permission), and from Alisa at [facility]. DCP assessment completed with information currently available. Patient is a 71 year old female who admitted afternoon to the care of the hospitalist team. PCP: Dr. Pressley. Payer: confirmed: [employer] Medicare. Patient came to the hospital via private vehicle accompanied by due to increased difficulty with walking, and right arm and facial weakness. Patient lives at [facility], but was spending the week-end with her in [place], and ended up here. According to notes, patient has chronic decreased vision in right eye from prior retinal hemorrhage and decreased left-sided vision from prior CVA. Patient has history of diabetes, and dyslipidemia with prior stroke. She was diagnosed with CVA acute, present on admission. Note indicates, possible acute rehab, but uncertain if she would be a candidate. She will need to work with P.T. She will also be getting an echo today. Met with patient in her room. She was speaking to spouse previously. She is alert and oriented. Spoke to [facility] at [facility] and confirmed that she is a permanent resident. Patient stated, her is trying to get her into a different facility. Asked her if this high risk case manager can call , patient gave permission. According to notes and patient, she was walking at her 's home on the week-end before symptoms occurred. Left a message for more information for [facility] at [facility]. Called , Damaso. Asked him about plan. He indicated that he lives near [place], and it's hard for him to drive all the way to [facility] to see her. Let him know he's working on getting her to [facility]. Let him know that this can take time, and patient would not be able to stay here until [facility] opening comes up, and he's aware of this. Let him know that patient was already complaining about the food at [facility], and he stated, she's really picky about food. He did state that patient was able to walk at his home. He also stated, he took care of her at home for a few years, but was too much for him. He agrees that patient would need [facility] before securing another facility. It is unclear if she will qualify for acute rehab, for [facility] has not yet worked with her. She needed transfusion, due to H&H. P: DCP to continue to follow for plan to see if [facility] as opposed to inpatient rehab. Will see what Ivory recommends. Myaa Varela RN/Community Affairs Director Discharge Planning/Care Management Advanced directive, confirm from FAMILY Start: 01/19/22 21:21 Freq: Q24H Status: Active Protocol: Document 01/19/22 21:36 JK (Rec: 01/20/22 02:51 [id number] [id number]) Advance Directive, confirm on record Time 21:30 Person contacted Patient Copy received No CM Discharge Assessment Start: 01/20/22 15:47 Freq: Status: Active Protocol: Document 01/20/22 15:47 (Rec: 01/20/22 15:49 [id number]) Discharge Planning Assessment Assigned Process Specialist Maya Varela RN/Community Affairs Director Advance Directives? Yes Advance Directives on File No History Provided By Patient,Medical Record Prior Living Arrangements Skilled Nurse Facility Type of transporation used prior to Relies on Others admit Facility Name Admitted From: [facility] Willing to Return to Facility? Yes: Patient wants to trans. to [facility], but can't happen right away. Is patient alert and oriented? Yes Needs Assistance With Bathing,Meal Prep,Toileting, Managing Medications,Home Chores / Shopping Caregiver for Another No DME Already Rented / Owned FWW / Walker Patient/Family Preference Shelter Facility Barriers to Discharge No Comment Let know that patient can't remain here while he is looking into getting patient to [facility] Discharge Plan Shelter Facility Transportation Arrangement Facility Referrals Initiated None needed Whiteboard Updated in Patient Room with Yes name and ext. # of Process Specialist Review Status In Process Next Review Type Continued Stay Review
[2022-01-20 19:09] LABS: Hematocrit 25.9 % (36-46); Hemoglobin 8.9 g/dL (12.0-16.0)
[2022-01-20] MEDS: TRAZODONE 100 MG TABLET PO (21:19)
[2022-01-20] MEDS: MELATONIN 3 MG TABLET 6 MG PO (22:33)
[2022-01-21] VITALS (7 sets, daily range): BP systolic 122–147; BP diastolic 55–73; PULSE 62–77; RESP 17–18; TEMP 36.3–36.6; O2SAT 93–99
--- NOTE | 2022-01-21 | DI.MRI.S_ITS ---
PROCEDURE: MR STROKE Pre- and post-contrast brain MRI, non-contrast brain MR angiogram, pre- and postcontrast neck MR angiogram INDICATIONS: tia TECHNIQUE: Brain: Noncontrast axial T1 spin echo, axial T2 fast spin echo, sagittal and axial FLAIR, coronal T2 fast spin echo, axial gradient echo, axial diffusion and ADC through the brain. After the administration of contrast, axial 3D VIBE of the cranial vasculature and brain. Brain MRA: Non-contrast 3-D time of flight MR angiogram, with multiple vifkbjh-cozemxbdg-oqtzzopszq (MIP) reformats performed. Neck MRA: Axial and sagittal TruFISP through the neck. Coronal dynamic MR angiogram during administration of contrast in the arterial and venous phases, with 3-dimenstional rczetue-wtsdnucbr-dqybiyepuv (MIP) reformats constructed from subtraction images. COMPARISON: [facility], MR, MR ANGIO HEAD WITHOUT CONTRAST, 06/03/2018, 15:01. [facility], MR, MR BRAIN WITHOUT CONTRAST, 06/03/2018, 15:21. [facility], MR, MR BRAIN WITH/WITHOUT CONTRAST, 09/30/2018, 14:18. [facility], CT, CT ANGIO HEAD AND NECK, 06/04/2018, 8:00. [facility], CT, CT ANGIO HEAD AND NECK, 01/19/2022, 13:43. [facility], US, US CAROTID DOPPLER BI, 01/20/2022, 7:49. FINDINGS: Image quality: This examination is limited by involuntary motion artifact. On the brain MRA images, the skull base is nondiagnostic. BRAIN: CSF spaces: Ventricles are normal in size and shape. Basal cisterns are patent. No extra-axial fluid collections. Brain: No intracranial bleeds or mass effects. Hernandez-white matter interface is normal. Diffusion weighted images show no acute ischemic insults. Brainstem appears normal. Normal intravascular flow voids are present. No abnormal intracranial enhancement. Note is made of age-appropriate brain parenchymal volume loss and chronic small vessel ischemic changes. Skull and face: Calvarial marrow signal is normal. Orbits appear normal. Sinuses: Sinuses and mastoids are clear. BRAIN MR ANGIOGRAM: Anterior circulation: Intracranial internal carotid arteries are normal in size and enhancement. The flow within the paired anterior cerebral arteries is normal and symmetric. The flow within the middle cerebral arteries is normal and symmetric. The anterior communicating artery is seen. No stenoses, occlusions, or aneurysms. Posterior circulation: The visualized portions of the vertebral arteries demonstrate normal caliber, and join to form a normal appearing basilar artery. A portion of the mid basilar artery is not seen on the brain MRI a images. However, on the MRA images of the neck, the entire basilar artery demonstrates an unremarkable appearance. There is a prominent left posterior communicating artery seen, with an accompanying diminutive left P1 segment. This is attributed to a type origin of the left posterior cerebral artery, which is considered to be a normal developmental variant of typically no clinical consequence. The flow within the posterior cerebral arteries is normal and symmetric. No stenoses, occlusions, or aneurysms. NECK MR ANGIOGRAM: Carotids: Great vessels demonstrate a conventional anatomy as they arise from the aortic arch. The origins of the common carotid arteries appear patent. The calibers and courses of both common carotid arteries are normal. The bifurcation regions demonstrate mild atherosclerotic irregularity. No hemodynamically significant stenosis can be seen involving the proximal internal carotid arteries. The more distal internal carotid arteries demonstrate normal course and caliber. Posterior circulation: The origins of the vertebral arteries 60-70% narrowing on each side. More superior portions of both vertebral arteries demonstrate normal course and caliber. Miscellaneous: Subclavian arteries appear patent. Pre-contrast images through the neck show no soft tissue abnormalities. IMPRESSION: BRAIN MRI: No findings of acute or subacute infarction can be seen. Note is made of age-appropriate brain parenchymal volume loss and chronic small vessel ischemic changes. No masses or abnormal enhancement can be seen. BRAIN MR ANGIOGRAM: No significant intracranial arterial abnormality is seen. The apparent stenosis involving the right proximal internal carotid artery seen on the recent CT angiogram is now considered to be artifactual. NECK MR ANGIOGRAM: No proximal carotid stenosis is seen. 60-70% narrowing seen involving the origins of each vertebral artery. The more distal extracranial vertebral arteries are unremarkable. Dictated by: Ketan Johns M.D. on 01/21/2022 at 8:17 Approved by: Ketan Johns M.D. on 01/21/2022 at 8:23
[2022-01-21] MEDS: AZTREONAM 1 GM in DEXTROSE 5 % IN WATER 50 ML 100 ML IV ×2 (06:51→15:32)
[2022-01-21 07:13] LABS: Add Manual Diff / Slide Review NO; Basophils Absolute Auto 0 /uL (0-100); Basophils Percent Auto 0.7 % (0-2); Eosinophils Absolute Auto 200 /uL (0-450); Eosinophils Percent Auto 2.6 % (2-4); Hematocrit 27.1 % (36-46); Hemoglobin 9.1 g/dL (12.0-16.0); Lymphocytes Absolute Auto 2000 /uL (1100-4500); Lymphocytes Percent Auto 30.8 % (25-40); Mean Corpuscular HGB Conc 33.5 % (30-36); Mean Corpuscular Hemoglobin 29.3 PG (26-34); Mean Corpuscular Volume 87.5 fL (80-100); Monocytes Absolute Auto 600 /uL (0-900); Monocytes Percent Auto 9.8 % (3-14); Neutrophils Absolute Auto 3600 /uL (1500-7000); Neutrophils Percent Auto 56.1 % (50-75); Platelet Count 243 X10^3/uL (150-400); Red Cell Distribution Width 15.7 % (11.6-14.8); White Blood Cell Count 6.5 X10^3/uL (4.5-11.0)
[2022-01-21 07:24] LABS: BUN Creatinine Ratio 27.1 (6-22); Blood Urea Nitrogen 56 mg/dL (7-17); Calcium 8.2 mg/dL (8.4-10.2); Carbon Dioxide 18 mmol/L (22-32); Chloride 114 mmol/L (98-107); Estimated Glomerular Filt Rate 23.6 mL/min (>60); Glucose 82 mg/dL (80-110); HEMOLYSIS < 15 (0-50); Potassium 4.7 mmol/L (3.4-5.1); Sodium 138 mmol/L (137-145)
--- NOTE | 2022-01-21 07:28 | DI.ECHO.S_ITS ---
+ + :Name: BUSTER STRATTON Study Date: 01/21/2022 Height: 60 in : :Hospital ReadingLocation: Weight: 116 lb : : Gender: Female BSA: 1.5 m2 : :: 1950 Age: 71 yrs BP: 135/62 mmHg: :Reason For Study: R/O TIA : :Ordering Physician: VEE VILLASEÑOR : :TERESA Performed By: Kristan Bradshaw : :Referring: VEE VILLASEÑORP : + + Interpretation Summary The left ventricle is normal in size. The ejection fraction is estimated to be 60-65%. Grade II diastolic dysfuntion The right ventricle is normal in size and function. The right ventricular systolic pressure is estimated to be at least 46 mmHg based on an estimated right atrial pressure of 8 mm Hg. The left atrium is moderately dilated. Injection of contrast documented no interatrial shunt. The aortic valve is slightly calcified. No significant valvular disease. Procedure: A two-dimensional transthoracic echocardiogram with color flow and Doppler was performed. The study quality was technically adequate. Comparison is made with the echocardiogram of 06/03/2018. The patient was in sinus rhythm with heart rates between 68-93 bpm during the exam. Left Ventricle: The left ventricle is normal in size. The ejection fraction is estimated to be 60-65%. There is a borderline dyssynchronous contraction pattern, consistent with a conduction abnormality. There are no focal wall motion abnormalities. Grade II diastolic dysfuntion. Right Ventricle: The right ventricle is normal in size and function. Atria: The left atrium is moderately dilated. The right atrium is mildly dilated. There is no Doppler evidence for an interatrial shunt. Injection of contrast documented no interatrial shunt. Mitral Valve: The mitral valve is normal in structure and function. There is trace mitral regurgitation. Aortic Valve: The aortic valve is trileaflet. The aortic valve opens well. The aortic valve is slightly calcified. There is no aortic valve stenosis. No aortic regurgitation is present. Tricuspid Valve: The tricuspid valve is normal in structure and function. There is mild tricuspid regurgitation. The right ventricular systolic pressure is estimated to be at least 46 mmHg based on an estimated right atrial pressure of 8 mm Hg. Pulmonic Valve: The pulmonic valve is not well visualized. There is no pulmonic valvular regurgitation. Great Vessels: The aortic root is normal size. The ascending aorta could not be visualized. The IVC is dilated (diameter is greater than 2.1 cm) yet it collapses greater than 50% with a sniff. This suggests a right atrial pressure of 8 mm Hg. Pericardium/ Pleura There is a trivial pericardial effusion noted. There is no pleural effusion. MMode/2D Measurements & Calculations LVIDd: 5.1 cm LVOT diam: 1.9 cm LVIDs: 3.2 cm Ao root diam: 2.9 cm FS: 36.8 % Ao Arch Diam (Prox Trans): 2.5 cm IVSd: 0.89 cm LVPWd: 0.98 cm LV pereira. diameter/BSA (cm/m^2): 3.5 LV sys. diameter/BSA (cm/m^2): 2.2 LA A2 area: 23.5 cm2 RA long axis: 5.0 cm LA A4 area: 20.7 cm2 RA area: 16.9 cm2 LA length (vol): 6.2 cm RA vol: 48.2 ml LA vol: 66.8 ml RA : 32.6 ml/m2 LA vol index: 45.1 ml/m2 IVC diam: 2.4 cm RVD1 (basal): 3.3 cm TAPSE: 2.0 cm Doppler Measurements & Calculations Ao V2 max: 152.5 cm/sec LVOT Max Haja: 99.0 cm/sec Ao V2 mean: 100.0 cm/sec LV V1 max P.9 mmHg Ao max P.3 mmHg LV V1 VTI: 23.2 cm Ao mean P.5 mmHg ARPAN(I,D): 2.2 cm2 Ao V2 VTI: 30.1 cm ARPAN(V,D): 1.8 cm2 sev ratio: 0.77 ARPAN indexed to BSA (cm^2/m^2): 1.5 MV E max haja: 95.2 cm/sec TR max haja: 299.0 cm/sec MV A max haja: 74.6 cm/sec TR max P.8 mmHg MV E/A: 1.3 PA V2 max: 124.9 cm/sec Med Peak E' Haja: 8.9 cm/sec PA V2 mean: 85.6 cm/sec E/E' med: 10.7 PA mean P.2 mmHg Lat Peak E' Haja: 7.1 cm/sec PA pr(Accel): 37.9 mmHg E/E' lat: 13.4 E/e' average: 12.0 MV dec time: 0.25 sec [facility] 65.7 ml Reading Physician:SAILAJA
--- NOTE | 2022-01-21 10:15 | PT.IIE ---
Medical History (Last Reviewed 01/20/22 @ 04:58 by TERESA Amezquita) CVA (cerebral vascular accident) Hyperlipidemia Hypertension Physical Therapy Inpatient Evaluation/Re-Eval M1 PT/OT-IP Prior Functional Status Start: 01/20/22 09:19 Freq: NEEDED Status: Active Protocol: Document 01/21/22 10:15 AB (Rec: 01/21/22 13:02 AB [id number]) Medical Review Prior Functional Status Medical History Reviewed Yes Communication able to make needs known but with slight confusion Mobility and Gait pt stated that she is modified independent with mobilities at home using a 4WW but her spouse assists her as needed. stated that she has been at [facility] since June of last year and has mainly using a w/c and stated that she was not allowed to ambulate by herself. Social History Living Arrangements Skilled Nurse Facility Number of Floors (Floors) One Floor Home Environment High Toilet,Walk in Shower Home Equipment Four Wheel Walker,Shower Seat with Backrest,Hand Held Shower M2 PT-IP Current Condition Start: 01/20/22 09:19 Freq: NEEDED Status: Active Protocol: Document 01/21/22 10:15 AB (Rec: 01/21/22 13:02 AB [id number]) Physical Therapy Current Condition Current Condition Evaluation Date 01/21/22 Treatment Diagnosis r/o CVA; acute anemia; difficulty in walking Onset Date 01/19/22 M3 PT-IP Subjective Start: 01/20/22 09:19 Freq: NEEDED Status: Active Protocol: Document 01/21/22 10:15 AB (Rec: 01/21/22 13:02 AB [email or web address]) Subjective Physical Therapy Visit Type Type Initial Evaluation Visit Start Time 10:15 Visit Stop Time 10:38 Total Visit Minutes 23 Number of GEOSPATIAL ENGINEER Visits 0 Physical Therapy Visit Comments Patient Comments stated that she is sleepy M4 PT-IP Mobility and Gait Start: 01/20/22 09:19 Freq: NEEDED Status: Active Protocol: Document 01/21/22 10:15 AB (Rec: 01/21/22 13:02 AB [email or web address]) PT-Bed Mobility Assessment Supine to Sit Supine to Sit Moderate Assistance,Maximum Assistance Sit to Supine Sit to Supine Standby Assistance PT-Transfer Assessment Sit to and From Stand Sit to and from Stand Minimal Assistance,1 Person Assistance Equipment Transfer Assistive Device Bed Rail,Front Wheeled Walker Comments Mobility Comments pt stated that she is sleepy and just got back from MRI procedure but agreed to do PT but wants to go back to bed afterwards. completed supine to sit mod to max A and max cues. able to sit on EOB initial min A and then just SBA after positioning. completed sit to stand min A and cues and ambulated in room in A ~ 15 ft using FWw. pt requested to go back to bed. completed sit to supine SBA. positioned pt in bed. pt stated that she cannot lay on her back and prefers to lay on her side. call light and table placed wtihin reach. Gait Assessment Gait Gait Assistance Required: Minimum Assistance Distance (Feet) 15 Able to Maintain Weight Bearing Status Yes During Gait Assistive Devices Assistive Device Gait Belt,Front Wheeled Walker Orthotic/Prosthetic Devices or Brace: No Gait Deviations General Gait Pattern Antalgic,Decreased Stride Length,Decreased Feet Clearance Factors Limiting Gait Function Factors Limiting Gait Function Decreased Activity Tolerance, Decreased Strength,Difficulty Following Directions,Pain,Poor Balance,Poor Safety Awareness PT-Balance Assessment Sitting Balance and Reactions Static Sitting Balance Ability Good Dynamic Sitting Balance Ability Good Standing Balance and Reactions Static Standing Balance Ability Fair Dynamic Standing Balance Ability Fair Device Used FWW M5 PT-IP Objective Assessments Start: 01/20/22 09:19 Freq: NEEDED Status: Active Protocol: Document 01/21/22 10:15 AB (Rec: 01/21/22 13:02 AB [id number]) Orientation Orientation/Cognition Level of Alertness Alert Orientation Name,Place,Situation Language Function Ability Hard of Hearing Safety Awareness Decreased Safety Awareness Memory Description Short Term Impaired Gross Range of Motion Lower Extremity ROM Assessment Within Functional Limits Strength Lower Extremity Strength Assessment Right Impaired Hip 3-/5 Knee 3-/5 Comments Strength Comments pt stated that she cannot moved her RLE due to a previous stroke; needs encouragement to try to move RLE. M6 PT-IP Treatment Start: 01/20/22 09:19 Freq: NEEDED Status: Active Protocol: Document 01/21/22 10:15 AB (Rec: 01/21/22 13:02 AB [id number]) Physical Therapy Treatment Education Education Provided Safety M7 PT-IP Assessment and Plan Start: 01/20/22 09:19 Freq: NEEDED Status: Active Protocol: Document 03/22/22 10:15 AB (Rec: 01/21/22 13:02 [id number]) PT Summary Assessment and Plan Potential Rehabilitation Potential Fair Status of Condition at Evaluation Evolving Summary Impairments Pain,ROM,Strength,Balance, Coordination,Sensation,Tone, Cognition,Bed Mobility, Transfers,Gait,Activity Tolerance Assessment Summary pt requiring min A with mobility and max cues for safety. pt was at [facility] since June. Pt may go back to [facility] when medically stable. Goals Bed Mobility Goal Standby Assistance Transfer Goal Standby Assistance,Front Wheeled Walker,Four Wheeled Walker Gait Goal Standby Assistance,Front Wheel Walker,Four Wheel Walker Gait Distance 50 Frequency of Treatment Frequency Of Treatment Once a Day Treatment Plan Physical Therapy Treatment Plan Bed Mobility Training,Transfer Training,Gait Training, Therapeutic Exercise,Balance Retraining,Discharge Planning, Neuromuscular Re-ed, Coordination Retraining,Manual Therapy Precautions Other Precautions falls Recommendations To Nursing Amount of Assist Needed 1 Person Assist Discharge Recommendations PT Discharge Recommendations SNF Rehab Transportation Needs at Discharge Wheelchair/Cabulance
[2022-01-21] MEDS: ATORVASTATIN 20 MG TABLET 80 MG PO (10:44)
[2022-01-21] MEDS: AMLODIPINE 5 MG TABLET 10 MG PO (10:44)
[2022-01-21] MEDS: carvediloL 12.5 MG TABLET 25 MG PO ×2 (10:45→20:09)
[2022-01-21] MEDS: PANTOPRAZOLE 40 MG VIAL IV (10:45)
[2022-01-21] MEDS: OXYBUTYNIN 5 MG TABLET PO ×2 (10:45→20:09)
--- NOTE | 2022-01-21 11:06 | CM.DPC ---
DCP Cont: Spoke to Alisa at [facility] regarding patient. Confirmed that at her baseline, she is mostly in a wheel-chair, self-propels in her chair. She does have some weakness, and is very picky about her food. Alisa indicated, they have tried to accomidate her. Let her know that spouse is looking into getting patient into [facility]. She will follow up with social work. She will be able to accept patient once stable. She was having MRI today. Alisa will attempt to get patient under her insurance for rehab, and submit auth, since she has [facility] Medicare. P: DCP to continue to follow. Plan is for patient to return to [facility] when medically stable. Maya Varela RN/[employer]
--- NOTE | 2022-01-21 11:10 | SLP.IPNOTE ---
Attempted to see pt for speech therapy at 10:30. Pt was working with with PT. Will attempt again later today.
--- NOTE | 2022-01-21 11:15 | OT.IP.EVAL ---
Past Medical History (Last Reviewed 01/20/22 @ 04:58 by TERESA Amezquita) CVA (cerebral vascular accident) Hyperlipidemia Hypertension Occupational Therapy Inpatient Evaluation/Re-Eval M1 PT/OT-IP Prior Functional Status Start: 01/20/22 09:19 Freq: NEEDED Status: Active Protocol: Document 01/21/22 13:39 CGR (Rec: 01/21/22 13:52 CGR [id number]) Medical Review Prior Functional Status Medical History Reviewed Yes Communication able to make needs known but with slight confusion Mobility and Gait pt stated that she is modified independent with mobilities at home using a 4WW but her spouse assists her as needed. stated that she has been at [facility] since June of last year and has mainly using a w/c and stated that she was not allowed to ambulate by herself. Activities of Daily Living and IADL's Pt states that at [facility] she is able to dress and perform simple ADLs but has assist with showers. Social History Living Arrangements Skilled Nurse Facility Number of Floors (Floors) One Floor Home Environment High Toilet,Walk in Shower Home Equipment Four Wheel Walker,Shower Seat with Backrest,Hand Held Shower M1 PT/OT-IP Prior Functional Status Start: 01/21/22 13:39 Freq: NEEDED Status: Active Protocol: Document 01/21/22 13:39 CGR (Rec: 01/21/22 13:52 CGR [id number]) Medical Review Prior Functional Status Medical History Reviewed Yes Communication able to make needs known but with slight confusion Mobility and Gait pt stated that she is modified independent with mobilities at home using a 4WW but her spouse assists her as needed. stated that she has been at [facility] since June of last year and has mainly using a w/c and stated that she was not allowed to ambulate by herself. Activities of Daily Living and IADL's Pt states that at [facility] she is able to dress and perform simple ADLs but has assist with showers. Social History Living Arrangements Skilled Nurse Facility Number of Floors (Floors) One Floor Home Environment High Toilet,Walk in Shower Home Equipment Four Wheel Walker,Shower Seat with Backrest,Hand Held Shower M2 OT-IP Current Condition Start: 01/21/22 13:39 Freq: Status: Active Protocol: Document 01/21/22 13:39 CGR (Rec: 01/21/22 13:52 CGR [id number]) Occupational Therapy Current Condition Current Condition Evaluation Date 01/21/22 Treatment Diagnosis Weakness, UTI, increased weakness of the R side Diagnosis Onset Date 01/19/22 M3 OT- IP Subjective and Pain Start: 01/21/22 13:39 Freq: Status: Active Protocol: Document 01/21/22 13:39 CGR (Rec: 01/21/22 13:52 CGR [id number]) OT- Subjective Occupational Therapy Visit Type Type Initial Evaluation Visit Start Time 10:42 Visit Stop Time 11:15 Total Visit Minutes 33 OT Pain Assessment Pain When Pain Assessed At Rest Pain Present Pain Present Denied Pain M4 OT- IP ADL's Start: 01/21/22 13:39 Freq: Status: Active Protocol: Document 01/21/22 13:39 CGR (Rec: 01/21/22 13:52 CGR [id number]) OT [id number] General Evaluation Self-Feeding Ability Standby Assistance Comments OT Self-Feeding Comments Pt states she is allergic to lots of food but she is able to eat cottage chease and pudding. Pt states she can't drink water because of the taste and prefers to drink soda. OT ADL-Grooming General Evaluation Grooming Ability Standby Assistance Areas Needing Assistance Face Washing Comments OT Grooming Comments seated in chair OT ADL-Oral Care Comments Oral Care Comments pt declined OT ADL-Dressing General Eval Lower Body Dressing Ability Total Assistance Areas Needing Assistance Socks OT ADL-Toileting General Evaluation Toileting Ability Total Assistance Comments OT Toileting Comments pt with izaiah OT ADL-Bathing Comments OT Bathing Comments not performed M5 OT- IP IADL's Start: 01/21/22 13:39 Freq: Status: Active Protocol: Document 01/21/22 13:39 CGR (Rec: 01/21/22 13:52 CGR [id number]) OT-Instrumental Activities of Daily Living Deficits IADL Deficits Identified Deficits Home Safety Awareness Awareness of Need for Assistance at Home Decreased Awareness Ability to Problem Solve Emergency Unable to Problem Solve Situations Medication Management Medication Management Caregiver Administers Money Management Money Management Caregiver Provides Assistance Meal Preparation Meal Preparation Caregiver Provides Assist Size Cutter Size Cutter Caregiver Provides Assist Driving Driving Comments Pt does not drive. M6 OT- IP Functional Cognition Start: 01/21/22 13:39 Freq: Status: Active Protocol: Document 01/21/22 13:39 CGR (Rec: 01/21/22 13:52 CGR [id number]) Cognitive Factors Limiting Selfcare Function Cognitive Ability Level of Alertness Alert Patient Orientation Name,Place,Situation Attention Span Ability Unable to Focus,Unable to Sustain Attention Ability to Follow Commands Able to Follow One Step Commands with Increased Time, Able to Follow One Step Commands with Repetition Cognitive Comments Cognitive Assessment Comments Pt would benefit from formal cog assessment. 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 M7 OT- IP Mobility and Balance Start: 01/21/22 13:39 Freq: Status: Active Protocol: Document 01/21/22 13:39 CGR (Rec: 01/21/22 13:52 CGR [id number]) OT- Bed Mobility Assessment Supine to Sit Supine to Sit Assist Standby Assistance Scooting Scooting to Edge of Bed Standby Assistance OT-Transfer Assessment Sit to and From Stand Sit to and from Stand Minimal Assistance Transfers Transfer Ability Minimal Assistance Technique Transfer Destination Bed,Chair Transfer Technique Stand Step Pivot Devices Transfer Assistive Devices Gait Belt,Front Wheeled Walker OT- Balance Assessment Sitting Balance and Reactions Static Sitting Balance Ability Good Dynamic Sitting Balance Ability Good M8 OT- IP Objective Assessments Start: 01/21/22 13:39 Freq: Status: Active Protocol: Document 01/21/22 13:39 CGR (Rec: 01/21/22 13:52 CGR [id number]) OT Gross Range of Motion Upper Extremity Range of Motion Assessment Right Impaired ROM Impairments pt states painful for R shld range beyond 0-45 OT Strength Upper Extremity Strength Assessment Right Impaired Comments Strength Comments LUE grossly 4/5 OT- Coordination Assessment Upper Extremity Finger to Nose Test Right UE Impaired Finger Tapping Test Right UE Impaired OT-Muscle Tone Assessment Muscle Tone WNL Yes OT Sensation Assessment Edema Edema Absent M9 OT- IP Assessment and Plan Start: 01/21/22 13:39 Freq: Status: Active Protocol: Document 01/21/22 13:39 CGR (Rec: 01/21/22 13:52 CGR [id number]) OT Summary Assessment and Plan Potential Rehabilitation Potential Good Analytic Complexity at Evaluation High Summary OT Impairments Range of Motion,Strength, Balance,Coordination, Functional Cognition, Functional Mobility,Grooming, Dressing,Toileting,Bathing, Toilet Transfers,Shower Transfers,Activity Tolerance Progress Towards Goals Slow Progress due to Medical Issues Assessment Summary Pt presents as a high complexity evaluation s/p admit for increased weakness to the R side and found to have a UTI. Pt presents now with R sided weakness that pt states is more weak than her baseline. Pt currently is stating that she does not want to go back to [facility] and wants to be closer to her . Pt will benefit from continued therapy services to address deficits. Goals Grooming Goal Independent Dressing Goal Independent Toileting Goal Independent Bathing Goal Minimal Assistance Toilet Transfer Goal Independent Shower Transfer Goal Standby Assistance Days to Meet Goals 30 Frequency of Treatment Frequency Of Treatment Once a Day Treatment Plan OT Treatment Plan ADL Training,Functional Cognition Training,Functional Mobility,Patient/Family Education,Discharge Planning Other Treatment Recommendations and Next cog assessment and shower. Treatment Focus Discharge Recommendations OT Discharge Recommendations SNF Rehab Transportation Needs at Discharge Private Vehicle
--- NOTE | 2022-01-21 14:21 | ST.IPTN ---
Visit Care Team Role Provider Type Esteban Pressley MD Primary Care Provider Non-Staff Address: [address] [place] [address], [id number] Heike Moy DO Emergency Provider Physician Referring Provider Address: [address] [place] [address], [id number] Loyd Douglas MD Admit Provider Physician Attending Provider Address: [address] [place] [address], [id number] Fax: RENEWABLE ENERGY CONSULTANT Treatment Note RENEWABLE ENERGY CONSULTANT Treatment Note Start: 01/21/22 14:07 Freq: Status: Active Protocol: Document 01/21/22 14:08 INGA (Rec: 01/21/22 14:21 ZS [id number]) Speech Pathology Treatment Note Session Time Visit Start Time 13:40 Visit Stop Time 14:00 Total Visit Minutes 20 Setting Treatment Setting Acute Care Visit Type Note Type Treatment Note Next Note Type Next Note Type Treatment Note General Information Patient History Anu Escudero is a 71 year old resident of [facility] with a prior history of stroke with right-sided deficits, diabetes type 2, coronary artery disease on dual anti- platelet therapy, and essential hypertension was apparently spending the weekend with her in their own home when she developed increased weakness of her right arm and leg, facial droop, and dysarthria. 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 Chest x-ray in the emergency department noted interstitial congestion question pneumonitis, mild central venous congestion and borderline cardiomegaly recommended consideration of CHF. CT of the brain and noted ?No intracranial bleeds or masses.? Hernandez-white matter interface appears intact.? Moderate cerebral cortical volume loss for age.? Prominent periventricular and deep white matter hypodensity suggesting chronic microvascular ischemic change. ? Focal left periventricular parietal lacunar infarct.? There is intracranial atherosclerotic change.? No suspicious enhancement postcontrast.And also noted moderate atherosclerotic change of the proximal right internal carotid artery with probable high-grade stenosis at the genu, difficult to measure given vessel tortuosity. There is also moderate calcification of the left carotid bulb extending into the left ICA with a mild ICA origin stenosis. Subjective Identification Type Name,ID Wristband Identification Reconciled With Medical Record Observations/Patient Presentation Pt was seated upright in chair when RENEWABLE ENERGY CONSULTANT arrived. She was awake, alert, and requested to be transferred to the bed as she was cold and had a tired butt. Chief Complaint(s) Language,Swallowing Objective Short Term Goals 1. Pt will follow safe swallow strategies to reduce risk of aspiration. Bobbin Presser Goals 1. The pt will tolerate least restrictive diet to meet her nutrition and hydration needs. Treatment Activities Discussed word finding difficulties and current diet. Provided pt education regarding swallow safety. Assessment Patient Response to Treatment Excellent Rehab Potential Excellent Impairments Identified Dysphagia Progress Towards Goals Excellent Progress Assessment of Overall Progress Improving Assessment of Improvement Pt reported no difficulty with word finding and told several stories, answered questions, and held a conversation with no instances of word finding difficulty observed. She stated her partner will be bringing her lower dentures later today, though added they may not fit properly as she had Portuguese food without them and now her lower gums are sliced. Will assess pt for possible diet advancement tomorrow if her dentures are present and fit appropriately. Provided pt education regarding swallow safety and diet advancement with dentures , reminded pt she is currently on a softer diet because she only has upper teeth to chew at this time. Notified pt that her swallow safety with advanced textures can be assessed tomorrow when she has her lower dentures. Reviewed with Patient Goals,Progress Being Made Patient/Caregiver Understanding Good Plan Treatment Emphasis Next Session Re-assess diet for possible advancement if pt has lower dentures present. Therapeutic Contents Swallowing/Feeding Provided Patient/Caregiver Instruction Plan of Care,Questions/ Concerns Therapy Recommendations Continue with Current Program
--- NOTE | 2022-01-21 18:03 | PM.PN.1 ---
Subjective Subjective Date Patient Seen: 01/21/22 Time Patient Seen: 14:00 Interval history: slightly improved right sided symptoms, still with difficulty speaking. No fever, chills, chest pain, shortness of breath . Exam Vital Signs (past 8 hours): - 01/21/22 10:18 01/21/22 15:45 Pulse Rate 71 74 Respiratory Rate 18 18 Blood Pressure 147/59 H 122/55 L Pulse Oximetry 94 93 Oxygen Delivery Method Room Air Oxygen Flow Rate 0 Narrative Exam Narrative: Gen: Alert, oriented, well nourished 71 y.o. ? female, appears older than stated age HEENT: normocephalic, atraumatic, conjunctiva clear, sclera non-icteric, oral mucosa pink and moist Neck: supple, full ROM, no JVD, trachea is midline Resp: Lungs CTA, non-labored breathing CV:?RRR no m/r/g Abd: soft, non-tender, normoactive BTs Skin: no lesions or rashes, dry and intact Neuro: Alert and oriented X 4. R weakness slightly improved today with mild dysarthria and mild facial asymmetry. Extremities:?no edema or joint effusion. Psyche: normal mood and affect. Objective Labs Result Diagrams: 01/21/22 06:57 01/21/22 06:57 Labs: Laboratory Results - last 24 hr 01/20/22 01/21/22 01/21/22 18:45 06:57 06:57 WBC 6.5 RBC 3.10 L Hgb 8.9 L 9.1 L Hct 25.9 L 27.1 L MCV 87.5 MCH 29.3 MCHC 33.5 RDW 15.7 H Plt Count 243 Neut % (Auto) 56.1 Lymph % (Auto) 30.8 [place] % (Auto) 9.8 Eos % (Auto) 2.6 Baso % (Auto) 0.7 Neut # (Auto) 3600 Lymph # (Auto) 2000 [place] # (Auto) 600 Eos # (Auto) 200 Baso # (Auto) 0 Sodium 138 Potassium 4.7 Chloride 114 H Carbon Dioxide 18 L BUN 56 H Creatinine 2.07 H Estimated GFR 23.6 L BUN/Creatinine Ratio 27.1 H Glucose 82 Calcium 8.2 L PFSH Medical History CVA (cerebral vascular accident) Hyperlipidemia Hypertension Family History Father Asthma COPD (chronic obstructive pulmonary disease) Mother Breast cancer Brother Throat cancer Social History Smoking Status: Former smoker alcohol intake: never substance use type: does not use Assessment & Plan Assessment & Plan narrative: Anu Escudero is admitted for further evaluation workup of a CVA. 1. CVA, acute, present on admission - MRI negative but suspect false negative study given clinical symptoms. - restart aspirin tomorrow given improvement / stability in anemia - doubt related to anemia but could be possible given improvement today. 2.Hypertension - improved on home medications, will continue. 3. HLD - continue home medications 4. Urinary tract infection, acute, present on admission - continue aztreonam 5. Acute kidney injury, present on admission - likely related to acute anemia - improving, though slowly. 6. Acute anemia - Hg to 6.6 yesterday without evidence of acute bleeding. Started on IV PPI BID empirically. - h/h showed good response to 2 U PRBC transfusion - continue to monitor. may be related to chronic disease. - would recommend further outpatient evaluation - switch to oral PPI tomorrow if stable h/h. DVT: hold given possible bleeding. Code status: Full Code as discussed with the patient who identifies her Dirk her surrogate and POA. Dispo: probable SNF Time Spent With Patient Critical Care time: I spent a total of [] minutes of critical care time on this patient's care today; this time is exclusive of procedural time. Quality Stroke Contraindication Not Initiating IV-Tpa: Contraindicated (Outside of window) Onset of Symptoms Date: 01/20/22 Symptom Onset Unknown: Yes Rehab Services Assessed: Stroke rehabilitation VTE Deep Vein Thrombosis/Pulmonary Embolism Present on Admission: No
[2022-01-21] MEDS: PANTOPRAZOLE DR 40 MG TABLET PO (20:08)
[2022-01-21] MEDS: MELATONIN 3 MG TABLET 6 MG PO (20:08)
[2022-01-21] MEDS: TRAZODONE 100 MG TABLET PO (20:09)
[2022-01-21] MEDS: SODIUM CHLORIDE 0.9% FLUSH 10 ML IV (20:09)
[2022-01-22] MEDS: AZTREONAM 1 GM in DEXTROSE 5 % IN WATER 50 ML 100 ML IV ×2 (00:17→05:55)
[2022-01-22 03:00] VITALS: BP 138/58; PULSE 63; RESP 17; TEMP 36.7; O2SAT 93
[2022-01-22 05:25] LABS: Add Manual Diff / Slide Review NO; Basophils Absolute Auto 0 /uL (0-100); Basophils Percent Auto 0.7 % (0-2); Eosinophils Absolute Auto 100 /uL (0-450); Hematocrit 25.8 % (36-46); Hemoglobin 8.7 g/dL (12.0-16.0); Lymphocytes Absolute Auto 2000 /uL (1100-4500); Lymphocytes Percent Auto 29.1 % (25-40); Mean Corpuscular HGB Conc 33.9 % (30-36); Mean Corpuscular Hemoglobin 29.5 PG (26-34); Mean Corpuscular Volume 87.2 fL (80-100); Monocytes Absolute Auto 700 /uL (0-900); Monocytes Percent Auto 11.1 % (3-14); Neutrophils Absolute Auto 3800 /uL (1500-7000); Neutrophils Percent Auto 57.1 % (50-75); Platelet Count 231 X10^3/uL (150-400); Red Blood Cell Count 2.96 X10^6/uL (4.0-5.2); Red Cell Distribution Width 15.5 % (11.6-14.8); White Blood Cell Count 6.7 X10^3/uL (4.5-11.0)
[2022-01-22 05:45] LABS: BUN Creatinine Ratio 25.1 (6-22); Blood Urea Nitrogen 51 mg/dL (7-17); Calcium 8.1 mg/dL (8.4-10.2); Carbon Dioxide 18 mmol/L (22-32); Chloride 115 mmol/L (98-107); Estimated Glomerular Filt Rate 24.1 mL/min (>60); Glucose 103 mg/dL (80-110); HEMOLYSIS < 15 (0-50); Potassium 4.4 mmol/L (3.4-5.1); Sodium 139 mmol/L (137-145)
[2022-01-22 08:05] VITALS: BP 142/66; PULSE 68; RESP 18; TEMP 37.1; O2SAT 93
[2022-01-22] MEDS: ASPIRIN EC 81 MG TABLET PO (08:27)
[2022-01-22] MEDS: PANTOPRAZOLE DR 40 MG TABLET PO (08:27)
[2022-01-22] MEDS: ATORVASTATIN 20 MG TABLET 80 MG PO (08:27)
[2022-01-22] MEDS: carvediloL 12.5 MG TABLET 25 MG PO (08:27)
[2022-01-22] MEDS: OXYBUTYNIN 5 MG TABLET PO (08:27)
[2022-01-22] MEDS: AMLODIPINE 5 MG TABLET 10 MG PO (08:28)
[2022-01-22] MEDS: SODIUM CHLORIDE 0.9% FLUSH 10 ML IV (08:29)
--- NOTE | 2022-01-22 10:30 | PT.IPTN ---
Current Diagnoses Cerebral infarction, unspecified (01/19/22) Physical Therapy Treatment Note M2 PT-IP Current Condition Start: 01/20/22 09:19 Freq: NEEDED Status: Active Protocol: Document 01/22/22 10:00 MA (Rec: 01/22/22 10:21 MA [id number]) Physical Therapy Current Condition Current Condition Evaluation Date 01/21/22 Treatment Diagnosis r/o CVA; acute anemia; difficulty in walking Onset Date 01/19/22 M3 PT-IP Subjective Start: 01/20/22 09:19 Freq: NEEDED Status: Active Protocol: Document 01/22/22 10:00 MA (Rec: 01/22/22 10:21 MA [id number]) Subjective Physical Therapy Visit Type Type Treatment Note Visit Start Time 09:30 Visit Stop Time 09:58 Total Visit Minutes 28 Number of HAZ TECH Visits 1 Physical Therapy Visit Comments Patient Comments Pt states she is tired but willing to do PT. Therapy Pain Assessment Pain When Pain Assessed During Mobility Pain Present Pain Present Pain Reported Location L hip Pain Behaviors Facial Grimacing,Holding Area Pain Management Techniques Re-positioning M4 PT-IP Mobility and Gait Start: 01/20/22 09:19 Freq: NEEDED Status: Active Protocol: Document 01/22/22 10:00 MA (Rec: 01/22/22 10:21 MA [id number]) PT-Bed Mobility Assessment Rolling Type of Rolling Roll to Left Level of Assist Contact Guard Assistance Supine to Sit Supine to Sit Moderate Assistance,1 Person Assistance,Head of Bed Elevated Sit to Supine Sit to Supine Contact Guard Assistance,1 Person Assistance,Head of Bed Elevated PT-Transfer Assessment Sit to and From Stand Sit to and from Stand Minimal Assistance,1 Person Assistance,Use of Upper Extremities Equipment Transfer Assistive Device Gait Belt,Front Wheeled Walker Comments Mobility Comments Pt is able to move from supine >sit with Mod A and minor c/o L hip pain. She is Min A for initial sit>stand and then CGA for next two sit<>stands. Pt is able to ambulate 10 ft CGA with gait belt and FWW before she takes a seated rest break on bed stating that her R leg feels like it's giving out. She is able to continuing abulating 10 more ft around room for a total of 20 ft ambulated CGA with FWW and gait belt. She is CGA for sit >SL and requests to stay lying on her L side for comfort. Gait Assessment Gait Gait Assistance Required: Contact Guard Assist Distance (Feet) 20 Able to Maintain Weight Bearing Status Yes During Gait Assistive Devices Assistive Device Gait Belt,Front Wheeled Walker Orthotic/Prosthetic Devices or Brace: No Gait Deviations General Gait Pattern Antalgic,Decreased Stride Length,Decreased Feet Clearance Factors Limiting Gait Function Factors Limiting Gait Function Decreased Activity Tolerance, Decreased Strength,Difficulty Following Directions,Pain,Poor Balance,Poor Safety Awareness Comments Gait Comments Pt ambulates 20 ft with a seated rest break after 10 ft using FWW and gait belt, CGA. She ambulates with a decreased stride length and decreased step height R>L due to prior stroke. PT-Balance Assessment Sitting Balance and Reactions Static Sitting Balance Ability Good Dynamic Sitting Balance Ability Good Standing Balance and Reactions Static Standing Balance Ability Fair Dynamic Standing Balance Ability Fair Device Used FWW M5 PT-IP Objective Assessments Start: 01/20/22 09:19 Freq: NEEDED Status: Active Protocol: Document 01/21/22 10:15 AB (Rec: 01/21/22 13:02 AB [id number]) Orientation Orientation/Cognition Level of Alertness Alert Orientation Name,Place,Situation Language Function Ability Hard of Hearing Safety Awareness Decreased Safety Awareness Memory Description Short Term Impaired Gross Range of Motion Lower Extremity ROM Assessment Within Functional Limits Strength Lower Extremity Strength Assessment Right Impaired Hip 3-/5 Knee 3-/5 Comments Strength Comments pt stated that she cannot moved her RLE due to a previous stroke; needs encouragement to try to move RLE. M6 PT-IP Treatment Start: 01/20/22 09:19 Freq: NEEDED Status: Active Protocol: Document 01/22/22 10:00 MA (Rec: 01/22/22 10:21 MA [id number]) Physical Therapy Treatment Exercises Exercises Ankle Pumps,Heel Slides Education Education Provided Safety Other Treatments Other Treatment Performed Educated pt on trying to exercise kelly LEs while in bed for maintaining strength M7 PT-IP Assessment and Plan Start: 01/20/22 09:19 Freq: NEEDED Status: Active Protocol: Document 01/22/22 10:00 MA (Rec: 01/22/22 10:21 MA [id number]) PT Summary Assessment and Plan Potential Rehabilitation Potential Fair Status of Condition at Evaluation Evolving Summary Impairments Pain,ROM,Strength,Balance, Coordination,Sensation,Tone, Cognition,Bed Mobility, Transfers,Gait,Activity Tolerance Assessment Summary Pt is Mod A for supine>sit but CGA for all other mobility and gait using FWW and gait belt. She speaks a lot about not getting enough care at prior living facility and feels she would do better if she was allowed to transfer to a living facility in [facility]. Pt cannot remember name of facility and PT encourages pt to talk with telephonic case manager about placement. Anu is able to walk 20 ft this session with seated rest break care home due to feeling like her RLE is giving out. Pt would benefit from returning to a rehab center when deemed medically stable. Goals Bed Mobility Goal Standby Assistance Transfer Goal Standby Assistance,Front Wheeled Walker,Four Wheeled Walker Gait Goal Standby Assistance,Front Wheel Walker,Four Wheel Walker Gait Distance 50 Frequency of Treatment Frequency Of Treatment Once a Day Treatment Plan Physical Therapy Treatment Plan Bed Mobility Training,Transfer Training,Gait Training, Therapeutic Exercise,Balance Retraining,Discharge Planning, Neuromuscular Re-ed, Coordination Retraining,Manual Therapy Precautions Other Precautions falls Recommendations To Nursing Amount of Assist Needed 1 Person Assist Discharge Recommendations PT Discharge Recommendations SNF Rehab Transportation Needs at Discharge Wheelchair/Cabulance
--- NOTE | 2022-01-22 10:39 | P.DS_ITS ---
History of Present Illness History of Present Illness Date Patient Seen: 01/22/22 Time Patient Seen: 10:39 Chief complaint: Thinks Possible Stroke Narrative: Per TERESA Amezquita: Anu Escudero is a 71 year old resident of [facility] with a prior history of stroke with right-sided deficits, diabetes type 2, coronary artery disease on dual anti-platelet therapy, and essential hypertension was apparently spending the weekend with her in their own home when she developed increased weakness of her right arm and leg, facial droop, and dysarthria.? She is normally ambulatory.? She was apparently going to the bathroom and returning to the bedroom when she developed swelling in the left side of her face and then found that she had a right-sided droop and felt weak on the right and I am unable to lift her leg.? 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 She does deny chest pain, she is a little bit nauseous but does not have the need to vomit, she states that she has chronic constipation, and she has a over 200 year pack history having smoked from the age of 8 till approximately 4 years ago when she had her 1st stroke, smoking 4 packs a day.? 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 Chest x-ray in the emergency department noted interstitial congestion question pneumonitis, mild central venous congestion and borderline cardiomegaly recommended consideration of CHF.? CT of the brain and noted ?Brain:? No midline shift.? No intracranial bleeds or masses.? Hernandez-white matter interface appears intact.? Moderate cerebral cortical volume loss for age.? Prominent per iventricular and deep white matter hypodensity suggesting chronic microvascular ischemic change.? Focal left periventricular parietal lacunar infarct.? There is intracranial atherosclerotic change.? No suspicious enhancement postcontrast.And also noted moderate atherosclerotic change of the proximal right internal carotid artery with probable high-grade stenosis at the genu, difficult to measure given vessel tortuosity.? There is also moderate calcification of the left carotid bulb extending into the left ICA with a mild ICA origin stenosis.? Renal ultrasound was negative for hydronephrosis.? Patient is afebrile, highest blood pressure on admission was 171/72 heart rate 72, respiratory rate 16, oxygen saturation of 93% on room air, she weighs 52.6 kg the BMI of 22.6.? She is a bit anemic with a hemoglobin and hematocrit of 7.7 and 23.2, sodium 139, potassium 4.9, chloride 117, bicarb 16, BUN 60, creatinine 2.12, with a EGFR of 23, glucose 112, A1c is 5.6, rest of her chemistries are w ithin normal limits, UA is negative for UTI, though there is a presence of yeast in her urine, urine toxicology is negative, and COVID-19 PCR is negative. Discharge Providers Provider Date of admission: 01/19/22 16:38 Discharge Date: 01/22/22 Primary care physician: Esteban Pressley MD Consults: 01/19/22 21:20 Consult to Dietitian, Adult Routine Comment: since stroke. Reason For Exam: weight loose, decrease appetite, difficulty eating 01/19/22 21:21 Consult to Bomb Squad Officer Routine Comment: needs help w/ transf. to another SN[facility] in [facility] 01/19/22 21:39 Consult to Occupational Therapy Evaluate & Treat Comment: Physician Instructions: Evaluate and treat Consult to Physical Therapy Evaluate & Treat Comment: Physician Instructions: Evaluate and Treat 01/19/22 21:40 Consult to Speech Therapy Evaluate & Treat Comment: Physician Instructions: Evaluate and treat Discharge provider: oPla Durham DO Summary Hospital Course Discharge Diagnosis: Please see hospital course by problem list noted below: Hospital Course: Anu Escudero is a 71 year old female admitted with signs of a stroke including dysarthria, R sided numbness and weakness. She was also anemic to Hg 6.6 requiring transfusion. She was ultimately transferred back to SNF for continued therapies. 1. CVA, acute, present on admission ?- MRI negative for an acute infarct but suspect false negative study given clinical symptoms on admission and throughout her stay here. ?- restarted aspirin after improvement / stability in anemia was noted. ?- symptoms could have been related to her acute anemia, however there were persistent deficits compared to baseline after transfusion. 2.Hypertension ?-initially patient was hypertensive, but this improved when resuming her prior home medications. No changes are recommended at this time. 3. HLD ?- discharged on atorvastatin 80 mg given CVA. 4. Urinary tract infection, acute, present on admission ?- continued aztreonam during the course of her stay, was fully treated at the time of discharge. 5. Acute kidney injury, present on admission ?- likely related to acute anemia. Creatinine began to improve slowly over the course of her stay. 6. Acute anemia ?- Hg to 6.6 without evidence of acute bleeding. Started on IV PPI BID empirically. Recommended continuing oral PPI as an outaptient. ?- h/h showed good response to 2 U PRBC transfusion, and was stable for 3 days following transfusion. ?- may be related to chronic disease. ?- would recommend further outpatient evaluation Time Spent with Patient Time spent: Greater than 30 minutes Exam Vital Signs (past 8 hours): - 01/22/22 03:00 Temperature 98.1 F Pulse Rate 63 Respiratory Rate 17 Blood Pressure 138/58 L Pulse Oximetry 93 Oxygen Delivery Method Room Air Oxygen Flow Rate 0 Narrative Exam Narrative: Gen: Alert, oriented, well nourished 71 y.o. ? female, appears older than stated age HEENT: normocephalic, atraumatic, conjunctiva clear, sclera non-icteric, oral mucosa pink and moist Neck: supple, full ROM, no JVD, trachea is midline Resp: Lungs CTA, non-labored breathing CV:?RRR no m/r/g Abd: soft, non-tender, normoactive BTs Skin: no lesions or rashes, dry and intact Neuro: Alert and oriented X 4. R weakness slightly improved today with mild dys arthria and mild facial asymmetry. Extremities:?no edema or joint effusion. Psyche: normal mood and affect. Objective Labs Result Diagrams: 01/22/22 05:11 01/22/22 05:11 Labs: Laboratory Results - last 24 hr 01/22/22 01/22/22 05:11 05:11 WBC 6.7 RBC 2.96 L Hgb 8.7 L Hct 25.8 L MCV 87.2 MCH 29.5 MCHC 33.9 RDW 15.5 H Plt Count 231 Neut % (Auto) 57.1 Lymph % (Auto) 29.1 [place] % (Auto) 11.1 Eos % (Auto) 2.0 Baso % (Auto) 0.7 Neut # (Auto) 3800 Lymph # (Auto) 2000 [place] # (Auto) 700 Eos # (Auto) 100 Baso # (Auto) 0 Sodium 139 Potassium 4.4 Chloride 115 H Carbon Dioxide 18 L BUN 51 H Creatinine 2.03 H Estimated GFR 24.1 L BUN/Creatinine Ratio 25.1 H Glucose 103 Calcium 8.1 L PFSH Medical History CVA (cerebral vascular accident) Hyperlipidemia Hypertension Family History Father Asthma COPD (chronic obstructive pulmonary disease) Mother Breast cancer Brother Throat cancer Social History Smoking Status: Former smoker alcohol intake: never substance use type: does not use Discharge Plan Discharge Plan Patient Disposition: SNF Transfer to: [facility] Provider Discharge Comment: Patient was admitted for possible stroke. MRI was negative but suspect a stroke. Found to have an acute anemia of unclear cause requiring transfusion. Started on pantoprazole with stable h/h for 3 days. Also treated here for a UTI. stable for return to SNF. would recommend repeat CBC in 5-7 days to check on anemia. Nursing Discharge Comment: [facility] 01/19/22. Leave in until more mobile, than d/c. Discharge orders & Medications Prescriptions: New aspirin 81 mg Tablet,Delayed Release (Dr/Ec) 81 mg PO DAILY 30 Days Qty: 30 0RF Continued diphenhydramine HCl 50 mg Capsule 50 mg PO BEDTIME PRN (Reason: Sleep) 0RF oxybutynin chloride 5 mg tablet 5 mg PO BID 0RF buspirone 5 mg Tablet 5 mg PO DAILY 0RF carvedilol 25 mg Tablet 25 mg PO BID 0RF Rx Instructions: must administer with a meal/food amlodipine 10 mg Tablet 10 mg PO DAILY 0RF pantoprazole 40 mg Tablet,Delayed Release (Dr/Ec) 40 mg PO DAILY 0RF Changed atorvastatin 80 mg tablet 80 mg PO DAILY Qty: 0 0RF Discontinued tramadol [Ultram] 50 mg tablet 50 mg PO Q6H PRN (Reason: pain) Qty: 5 0RF hydralazine 100 mg Tablet 100 mg PO Q8HR 0RF Follow up/Referrals: Esteban Presslye MD [Primary Care Provider] - Discharge Health Status Precautions: [place] Diet/Activity/Treatments Diet: Diet as Tolerated Liquid consistency: Normal/Thin Food texture: Soft Diet comment: dysphagia mechanical soft, no red meat or cured meat, no eggs. 45 CHO. Special Rehabilitation Services Reason for rehabilitation: Therapy following stroke Rehab type: Physical therapy and Occupational therapy Visit Report/Discharge Packet Instructions: Blood Transfusion, DI for Stroke-Ischemic, DI for Urinary Tract Infection (UTI) Discharge Data Primary Care Provider: Esteban Pressley Stroke Contraindication Not Initiating IV-Tpa: Contraindicated (Outside of window) Onset of Symptoms Date: 01/20/22 Symptom Onset Unknown: Yes Rehab Services Assessed: Stroke rehabilitation VTE Deep Vein Thrombosis/Pulmonary Embolism Present on Admission: No
--- NOTE | 2022-01-22 11:07 | CM.DPC ---
Addendum entered by Maya Varela R.N. 01/22/22 12:13: Patient indicated, she doesn't want to go to [facility], wants to go to [facility]. Left message with spouse. This director of casework department went to speak to patient, and reminded her that this is temporary, she will eventually go to [facility]. Was able to get , Dirk, on the phone, and he is speaking to her. 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 April indicated that they did not know that patient's was even contemplating [facility]. Zeina at [facility] is reviewing, and might be able to take her tomorrow from their facility. Let patient know, she can't stay here until bed is available, and is not able to take her home, so she will need to go to [facility]. COVID swab was collected, pending results. Original Note: DCP Cont: Patient is to be discharged home today. Left a message with , attempted cell phone as well. Confirmed quill picking machine operator time with Alisa at 1300. Added a COVID swab, and updated nurse, Guerita Kern. Patient wants to go home, but due to weakness, will need some rehab. is working on getting patient to [facility] in [place]. P: Patient is to be discharged back to [facility]. Faxed med sheets, DC Summary, pending COVID results. Updated white board, and gave Guerita nurse report. Maya Varela RN/Cargo And Ramp Services Manager
--- NOTE | 2022-01-22 12:10 | ST.IPDYTX ---
Visit Care Team Role Provider Type Esteban Pressley MD Primary Care Provider Non-Staff Specialty: Medical Address: [address] [place] [address], [id number] Email: Heike Moy DO Emergency Provider Physician Referring Provider Specialty: Emergency Medicine Address: [address] [place] [address], [address] Email: [email or web address] Admit Provider Physician Attending Provider Specialty: Hospitalist Address: [address] [place] [address], [phone] Fax: Email: [email or web address] DIRECTOR Dysphagia Treatment [facility] DIRECTOR Dysphagia Treatment Start: 01/22/22 11:53 Freq: Status: Active Protocol: Document 01/22/22 11:53 RACHEL (Rec: 01/22/22 12:04 RACHEL [id number]) Dysphagia Treatment Session Time Visit Start Time 09:50 Visit Stop Time 10:10 Total Visit Minutes 20 Setting Assessment Location Acute Care Visit Type Note Type Treatment Note Patient Information Identification Type Name,ID Card Subjective Observations The pt was lying in bed awake, just finished working with PT . Pt's bottom dentures were present in container. Breakfast tray was present with ~40% consumed. Pt stated that lower dentures do not fit and cause pain to her jaw. She reported tolerance of mechanical soft texture without lower dentures and stated she has not used lower dentures for almost a year. The pt was highly conversant throughout the session with mildly dysarthric but 100% intelligible speech. She perceived speech to be at baseline and felt she was communicating effectively with others. She had no concerns with speech or swallow. Pt was repositioned to upright in bed. Treatment Liquids Trialed Thin Solids Trialed Dysphagia Mechanical Administration Type Tea Spoon,Straw Oral Strategies Upright at 90 degrees Pharyngeal Strategies Small Bites and Sips Treatment Activities Assessed pt's ability to wear and use lower dentures. The pt placed dentures and winced when she occluded upper and lower teeth, reporting pain at bottom right jaw under dentures. Both upper and lower dentures were loose fitting, uppers more secure than lower and adequate for speech and mastication. Lower dentures were not useful for mastication and were removed. The pt consumed diced peaches and thin liquid without overt s/sx of aspiration. She effectively masticated them with upper dentures only. Assessment Patient Response to Treatment Good Rehab Potential Good Assessment of Improvement The pt is demonstrating good tolerance of mechanical soft textures and thin liquids with use of upper dentures only. With current dentition, she is at her highest level of texture, which is also her baseline. While speech is mildly dysarthric secondary to previous stroke and absence of lower teeth, she is 100% intelligible and, by her report, back to baseline. She will be discharged from Speech Therapy at this time. Diet Recommendations Recommendations Continue Current Diet Liquids Order Thin Diet Order Dysphagia Mechanical Medication Recommendations As Tolerated Aspiration Precautions Recommended Precautions Upright at 90 Degrees,Frequent Rest Periods Treatment Plan Placement Recommendation after Discharge Home,Technical Customer Support Specialist Care Facility, Home Care Appropriate for Continued Therapy No
[2022-01-22 12:48] LABS: COVID19 -Nasal RAPID Negative (Negative)
--- NOTE | 2022-01-22 14:51 | PC.NURSE ---
Transfer: Pt transfering back to [facility], she doesn't want to return to the facility but has to wait for the paperwork to be completed to be able to go to [place]. She is disappointed. SThere nothing but a house over there, I would take a dog there. She is agreeable to go as long as it is temporary and it is, as far as known. Report called to Loretta, admitting nurse at [facility]. Reviewed hospital course and ADL's. Also made aware pt wants to transfer from there to [facility] and has expressed being unhappy with the care there. per Loretta this has been an ongoing problem. Pt transfered to [facility] via there van.
== END 2022-01-22 11:15 | DRG 65 ==
LOC: ED 16:33 → AC 16:39
PROVIDERS: Internal Medicine; Nurse Practitioner Family; Admitting Provider Internal Medicine; Emergency Provider Emergency Medicine; PCP Family Medicine; Referring Provider Emergency Medicine; Visit Provider Internal Medicine
DX: I63.9 Cerebral infarction, unspecified (principal); G81.91 Hemiplegia, unspecified affecting right dominant side; N17.9 Acute kidney failure, unspecified; N39.0 Urinary tract infection, site not specified; R47.81 Slurred speech; D64.89 Other specified anemias; Z86.73 Personal history of transient ischemic attack (TIA), and cerebral infarction without residual deficits; E11.9 Type 2 diabetes mellitus without complications; I25.10 Atherosclerotic heart disease of native coronary artery without angina pectoris; Z79.02 Long term (current) use of antithrombotics/antiplatelets; R47.1 Dysarthria and anarthria; Z87.891 Personal history of nicotine dependence; I10 Essential (primary) hypertension; E78.5 Hyperlipidemia, unspecified
CPT/HCPCS: 36415; 36430; 51798; 70496; 70498; 70548; 70553; 71045; 76770; 80048; 80053; 80305; 81001; 82550; 82962; 83036; 83880; 84443; 84484; 85014; 85018; 85025; 85610; 85730; 86850; 86900; 86901; 87086; 87635; 92507; 92526; 92610; 93005; 93306; 93880; 97116; 97162; 97167; 97530; 97535; 99285; C9803; P9016; C9113; J1815; J1940

== ENCOUNTER 2022-01-26 17:50 | Emergency (ER) | payer OTHER, MEDICAID, SELFPAY ==
[2022-01-19 20:54] VITALS: BMI 22.6
[2022-01-26 18:05] VITALS: BP 180/65; PULSE 71; RESP 18; TEMP 36.8; O2SAT 98; BMI 22.8
--- NOTE | 2022-01-26 18:15 | ED_ITS ---
HPI - Neuro Symptoms/Deficit General Chief Complaint: Neuro Symptoms/Deficit Stated Complaint: can't move, swelling on face, weak Time Seen by Provider: 01/26/22 17:59 Source: patient Mode of arrival: Wheelchair History of Present Illness HPI Narrative: 71F former smoker with history of hypertension and hyperlipidemia as well as chronic kidney injury and recent hospitalization for possible stroke presents of right-sided weakness, similar to prior workup. Patient had a stroke about 4 years ago that left her with some mild right-sided deficits including arm and leg. She can normally ambulate on her own and has no issues with speech. She went to bed last night in her normal state of health at about midnight and upon waking at 8:00 a.m. was noted to have right-sided facial weakness and speech issues as well as increased weakness and right arm and right leg as well as likely increased numbness. She can no longer ambulate on her own. She presented here for a repeat stroke evaluation. She has no pain and denies any recent trauma. She had been admitted from January 19 to January 22 and symptoms started to improve after about 2 days and were back to her baseline at the time of discharge. During the last visit she had a head CT which was unremarkable followed by a CT angiogram of the head and neck that noted a possible high-grade stenosis of the right ICA. During her admission she had an MR of the brain with MRA of the head and neck which states that previously noted stenosis was thought to be artifactual. She has been taking her medications as directed and denies any recent falls or trauma. On Anticoagulants: Yes Related Data Home Medications Medication Instructions Recorded Confirmed diphenhydramine HCl 50 mg capsule 50 mg PO BEDTIME PRN 08/10/18 01/20/22 oxybutynin chloride 5 mg tablet 5 mg PO BID 09/14/18 01/21/22 amlodipine 10 mg tablet 10 mg PO DAILY 01/20/22 01/20/22 buspirone 5 mg tablet 5 mg PO DAILY 01/20/22 01/20/22 carvedilol 25 mg tablet 25 mg PO BID 01/20/22 01/20/22 pantoprazole 40 mg tablet,delayed 40 mg PO DAILY 01/20/22 01/20/22 release Previous Rx's Medication Instructions Recorded aspirin 81 mg tablet,delayed 81 mg PO DAILY 30 Days #30 tab 03/23/22 release atorvastatin 80 mg tablet 80 mg PO DAILY #0 tab 01/22/22 Allergies Allergy/AdvReac Type Severity Reaction Status Date / Time Penicillins [PENICILLINS] Allergy Severe affects Verified 01/26/22 18:13 breathing shellfish derived Allergy Severe anaphylaxis Verified 01/26/22 18:13 [SHELLFISH DERIVED] erythromycin base Allergy Mild Verified 01/26/22 18:13 hydrocodone Allergy Mild Verified 01/26/22 18:13 Sulfa (Sulfonamide Allergy Mild Verified 01/26/22 18:13 Antibiotics) acetaminophen Allergy Unknown Verified 01/26/22 18:13 [From DARVOCET-N] morphine [MORPHINE] Allergy Unknown Verified 01/26/22 18:13 propoxyphene Allergy Unknown Verified 01/26/22 18:13 [From DARVOCET-N] Tetracyclines [TETRACYCLINES] Allergy Unknown Verified 01/26/22 18:13 egg AdvReac Verified 01/26/22 18:13 Review of Systems Review of Systems Narrative: GENERAL: Denies chills, fatigue, malaise, fever, sweats. HEENT: Denies sinus pain, ear pain, sore throat, difficulty swallowing, dizziness. RESPIRATORY: Denies dyspnea, cough, wheezing, hemoptysis, sputum. CARDIOVASCULAR: Denies chest pain, palpitations, orthopnea, edema, GASTROINTESTINAL: Denies nausea, vomiting, abdominal pain, diarrhea, constipation, melena. : Denies dysuria, frequency, incontinence, hematuria, urinary retention. MUSCULOSKELETAL: denies weakness, joint pain, or bony pain SKIN: Denies rash, skin lesions, or other NEUROLOGIC: See HPI PSYCHIATRIC: No concerning psychosocial issues. 12 point review of systems is negative except for those stated above Hematologic/Lymphatic On Anticoagulants: Yes Patient History Medical History (Updated 01/26/22 @ 20:42 by Kristopher William DO) CVA (cerebral vascular accident) Hyperlipidemia Hypertension Family History Father Asthma COPD (chronic obstructive pulmonary disease) Mother Breast cancer Brother Throat cancer Social History Smoking Status: Former smoker alcohol intake: never substance use type: does not use Smoking Status: Former smoker Substance Use Type: does not use Exam Narrative Exam Narrative: GENERAL: [71] year old patient appears stated age. Well-developed patient, in mild distress. HEAD: Atraumatic. Normocephalic. EYES: Pupils equal round and reactive. Extraocular motions intact. No scleral icterus. No injection or drainage. ENT: Nose without bleeding, purulent drainage. Throat without erythema, tonsillar hypertrophy or exudate. Airway patent. NECK: Trachea midline. Non tender CARDIOVASCULAR: Regular rate and rhythm without murmurs, gallops, or rubs. RESPIRATORY: Clear to auscultation. Breath sounds equal bilaterally. No wheezes, rales, or rhonchi. GASTROINTESTINAL: Abdomen soft, non-tender, nondistended. EXTREMITIES: No edema or joint tenderness. BACK: Nontender without deformity or crepitance. No flank tenderness. NEURO: AOx3. Cranial nerves 2-12 grossly intact SKIN: No rash or erythema of visible areas Initial Vital Signs Initial Vital Signs: Vital Signs Temperature 98.3 F 01/26/22 18:05 Pulse Rate 71 01/26/22 18:05 Respiratory Rate 18 01/26/22 18:05 Blood Pressure 180/65 H 01/26/22 18:05 Pulse Oximetry 98 01/26/22 18:05 Scores NIH Stroke Scale Level of Conciousness: Alert, keenly responsive Ask month/age: Answers one question correctly, intubated follow commands Open/close eyes, close hand: Performs both tasks correctly Best gaze horizontal: Normal Visual francis: No visual loss Facial palsy: Partial paralysis, total or near total paralysis of lower face Left arm drift: No drift for full 10 sec Right arm drift: Drifts down, not to bed Left leg drift: No drift for full 5 sec Right leg drift: Some effort against gravity, cannot maintain, drifts down to bed Limb ataxia: Absent Sensory on face/arms/legs: Mild to moderate sensory loss, can tell touch Best language: No aphasia, normal Dysarthria: Severe, unintelligible Extinction or inattention: Visual, tactile, auditory, spacial or personal inattention to stimuli Total NIH Stroke scale score: 10 Course Orders Ordered: ED Orders 01/26/22 18:06 EKG-12 Lead Stat 01/26/22 18:25 Complete Blood Count AUTO DIFF Stat Comprehensive Metabolic Panel Stat Ethanol (ETOH) Stat Lipase Stat Magnesium Stat Partial Thromboplastin Time Stat Prothrombin Time INR Stat Troponin & CK Cardiac Panel Stat Type and Screen Stat 01/26/22 19:03 CT head/brain wo con Stat 01/26/22 20:22 COVID19 -Nasal swab/Pre-Proc Stat Consultations Consultation #1: discussed with [facility]. They have reviewed the case including recent hospitalization, images, and today's presentation and images. Given second visit in a week they advocate for transfer to facility with in house neurology for more advanced workup with possible EEG vs. other. Consultation #2: hospitalist here at [place] shares the above opinion. Patient understands and agrees with plan to transfer Consultation #3: 2019 - call to [facility]. They do have beds and will page Neuro organizational development specialist. He has called back and after discussion of case he agrees with appropriateness of transfer and will gladly be involved in consultation, but recommends call to hospitalist [phone] - Stephanie Zimmer (hospitalist at [facility]) happy to accept pending COVID swab Vital Signs Vital signs: Vital Signs - 8 hr 01/26/22 18:05 01/26/22 19:44 01/26/22 20:00 Temperature 98.3 F Pulse Rate 71 70 72 Respiratory Rate 18 22 19 Blood Pressure 180/65 H 159/74 H Pulse Oximetry 98 97 97 01/26/22 20:30 01/26/22 21:00 Temperature Pulse Rate 68 69 Respiratory Rate 21 22 Blood Pressure 155/69 H 155/69 H Pulse Oximetry 93 93 MDM - Neuro Symptoms/Deficit Lab Data Result diagrams: 01/26/22 18:25 01/26/22 18:25 Labs: Lab Results 01/26/22 01/26/22 01/26/22 Range/Units 18:25 18:25 18:25 WBC 9.1 (4.5-11.0) X10^3/uL RBC 3.36 L (4.0-5.2) X10^6/uL Hgb 10.0 L (12.0-16.0) g/dL Hct 29.5 L (36-46) % MCV 87.8 (80-100) fL MCH 29.7 (26-34) PG MCHC 33.8 (30-36) % RDW 15.4 H (11.6-14.8) % Plt Count 264 (150-400) X10^3/uL Neut % (Auto) 56.8 (50-75) % Lymph % (Auto) 30.7 (25-40) % Medina % (Auto) 9.5 (3-14) % Eos % (Auto) 2.2 (2-4) % Baso % (Auto) 0.8 (0-2) % Neut # (Auto) 5200 (3511-1446) /uL Lymph # (Auto) 2800 (4323-2808) /uL Medina # (Auto) 900 (0-900) /uL Eos # (Auto) 200 (0-450) /uL Baso # (Auto) 100 (0-100) /uL PT 11.6 (10.1-12.7) SECONDS INR 1.0 (0.9-1.3) APTT 36 (26.4-36.2) SECONDS Sodium 141 (137-145) mmol/L Potassium 4.5 (3.4-5.1) mmol/L Chloride 115 H (98-107) mmol/L Carbon Dioxide 17 L (22-32) mmol/L BUN 45 H (7-17) mg/dL Creatinine 2.06 H (0.52-1.04) mg/dL Estimated GFR 23.7 L (>60) mL/min BUN/Creatinine Ratio 21.8 (6-22) Glucose 102 (80-110) mg/dL Calcium 8.4 (8.4-10.2) mg/dL Magnesium 2.0 (1.6-2.3) mg/dL Total Bilirubin 0.3 (0.2-1.3) mg/dL AST 30 (14-36) IU/L ALT 26 (<35) IU/L Alkaline Phosphatase 74 (38-126) U/L Total Creatine Kinase 76 (30-135) U/L CK-MB (CK-2) TNP CK-MB (CK-2) Rel Index TNP Troponin I < 0.012 (0.01-0.034) ng/mL Total Protein 6.8 (6.3-8.2) g/dL Albumin 3.7 (3.5-5.0) g/dL Globulin 3.1 (1.7-4.1) g/dL Albumin/Globulin Ratio 1.2 (1.0-2.8) Lipase 52 (23-300) U/L Ethyl Alcohol < 10 ( - 10) mg/dL SARS-CoV-2 (PCR) (Negative) Blood Type Antibody Screen 01/26/22 01/26/22 Range/Units 18:25 20:22 WBC (4.5-11.0) X10^3/uL RBC (4.0-5.2) X10^6/uL Hgb (12.0-16.0) g/dL Hct (36-46) % MCV (80-100) fL MCH (26-34) PG MCHC (30-36) % RDW (11.6-14.8) % Plt Count (150-400) X10^3/uL Neut % (Auto) (50-75) % Lymph % (Auto) (25-40) % Medina % (Auto) (3-14) % Eos % (Auto) (2-4) % Baso % (Auto) (0-2) % Neut # (Auto) (1362-7741) /uL Lymph # (Auto) (0962-7220) /uL Medina # (Auto) (0-900) /uL Eos # (Auto) (0-450) /uL Baso # (Auto) (0-100) /uL PT (10.1-12.7) SECONDS INR (0.9-1.3) APTT (26.4-36.2) SECONDS Sodium (137-145) mmol/L Potassium (3.4-5.1) mmol/L Chloride (98-107) mmol/L Carbon Dioxide (22-32) mmol/L BUN (7-17) mg/dL Creatinine (0.52-1.04) mg/dL Estimated GFR (>60) mL/min BUN/Creatinine Ratio (6-22) Glucose (80-110) mg/dL Calcium (8.4-10.2) mg/dL Magnesium (1.6-2.3) mg/dL Total Bilirubin (0.2-1.3) mg/dL AST (14-36) IU/L ALT (<35) IU/L Alkaline Phosphatase (38-126) U/L Total Creatine Kinase (30-135) U/L CK-MB (CK-2) CK-MB (CK-2) Rel Index Troponin I (0.01-0.034) ng/mL Total Protein (6.3-8.2) g/dL Albumin (3.5-5.0) g/dL Globulin (1.7-4.1) g/dL Albumin/Globulin Ratio (1.0-2.8) Lipase (23-300) U/L Ethyl Alcohol ( - 10) mg/dL SARS-CoV-2 (PCR) Negative (Negative) Blood Type A Positive Antibody Screen Negative Imaging Data CT scan - head: Radiologist's Impression: [address] [address] [address] Scan Report Signed Patient: Anu Escudero MR#: [id number] : 1950 Acct:[id number] Age/Sex: 71 / F Date of Service: 01/26/22 Loc: ED Accession Number: [id number] ?? Procedure: CT head/brain wo con Ordering Provider: Kristopher William D.O. PROCEDURE:? CT HEAD/BRAIN WO CON ? INDICATIONS:? stroke symptoms ? TECHNIQUE:? Noncontrast 4.5 mm thick angled axial sections acquired from the foramen magnum to the vertex, with coronal and sagittal reformats.? For radiation dose reduction, the following was used:? automated exposure control, adjustment of mA and/or kV according to patient size.? ? COMPARISON:? [facility], CT, CT HEAD/BRAIN WO CON, 09/14/2018, 16:13. ? FINDINGS:? Image quality:? Excellent.? ? CSF spaces:? Basal cisterns are patent.? No extra-axial fluid collections.? The ventricles are symmetric in size and shape.? ? Brain:? No intracranial bleeds or masses.? There is cerebral volume loss for age, with resultant ventricular and sulcal prominence.? There are periventricular and deep white matter chronic small vessel ischemic changes.? There is intracranial internal carotid artery atherosclerosis.? ? Skull and face:? Calvarium and visualized facial bones appear intact, without suspicious lesions.? ? Sinuses:? Visualized sinuses and mastoids are clear.? ? IMPRESSION:? 1. No CT evidence of acute intracranial abnormalities. 2.? Age related atrophy and moderate white matter chronic small vessel ischemic changes.? Dictated by: Amor Bowden M.D. on 01/26/2022 at 19:28 ? ? Approved by: Amor Bowden M.D. on 01/26/2022 at 19:28 ? Critical Care Time Critical Care Time Critical Care Time: Yes Total Critical Care Time: 30 Attestation: The high probability of a clinically significant, sudden or life threatening deterioration of the [NV] system(s) required my full and direct attention, intervention and personal management. The aggregate critical care time was [30] minutes. This time is in addition to time spent performing reported procedures but includes the following: [x] Data Review and interpretation [x] Patient assessment and monitoring of vital signs [x] Documentation [x] Medication orders and management Discharge Plan Departure Patient Disposition: [facility] Clinical Impression: Acute CVA (cerebrovascular accident) Prescriptions: No Action diphenhydramine HCl 50 mg Capsule 50 mg PO BEDTIME PRN (Reason: Sleep) 0RF oxybutynin chloride 5 mg tablet 5 mg PO BID 0RF buspirone 5 mg Tablet 5 mg PO DAILY 0RF carvedilol 25 mg Tablet 25 mg PO BID 0RF Rx Instructions: must administer with a meal/food amlodipine 10 mg Tablet 10 mg PO DAILY 0RF pantoprazole 40 mg Tablet,Delayed Release (Dr/Ec) 40 mg PO DAILY 0RF aspirin 81 mg Tablet,Delayed Release (Dr/Ec) 81 mg PO DAILY 30 Days Qty: 30 0RF atorvastatin 80 mg tablet 80 mg PO DAILY Qty: 0 0RF Referrals: Esteban Pressley MD [Primary Care Provider] -
--- NOTE | 2022-01-26 18:30 | PC.NURSE ---
patient had a left hemisphere stroke in the past which she still has deficits from. Her right eye is slouching but the says that's from before the stroke. Her left arm is weak but still able to demand planner equally as her left arm. Her right leg is weak and she is able to raise it slightly, normally. Her complaints today include: She woke up this morning and had right leg pain. She states that she was unable to stand, when ask she said it was due to weakness and pain. I pushed gently on her lateral thigh and was able to produce pain. She stated that was the pain that brought her in. Her left eye has been bothering her but it is unknown when that started. Her stomach hurts on her left side but she denies diarrhea today but states she was in the hospital recently for a UTI and received antibiotics and had diarrhea at that time.
[2022-01-26 18:45] LABS: Add Manual Diff / Slide Review NO; Basophils Absolute Auto 100 /uL (0-100); Basophils Percent Auto 0.8 % (0-2); Eosinophils Absolute Auto 200 /uL (0-450); Eosinophils Percent Auto 2.2 % (2-4); Hematocrit 29.5 % (36-46); Lymphocytes Absolute Auto 2800 /uL (1100-4500); Lymphocytes Percent Auto 30.7 % (25-40); Mean Corpuscular HGB Conc 33.8 % (30-36); Mean Corpuscular Hemoglobin 29.7 PG (26-34); Mean Corpuscular Volume 87.8 fL (80-100); Monocytes Absolute Auto 900 /uL (0-900); Monocytes Percent Auto 9.5 % (3-14); Neutrophils Absolute Auto 5200 /uL (1500-7000); Neutrophils Percent Auto 56.8 % (50-75); Platelet Count 264 X10^3/uL (150-400); Red Blood Cell Count 3.36 X10^6/uL (4.0-5.2); Red Cell Distribution Width 15.4 % (11.6-14.8); White Blood Cell Count 9.1 X10^3/uL (4.5-11.0)
[2022-01-26 19:01] LABS: Prothrombin Time 11.6 SECONDS (10.1-12.7)
--- NOTE | 2022-01-26 19:03 | DI.CT.S_ITS ---
PROCEDURE: CT HEAD/BRAIN WO CON INDICATIONS: stroke symptoms TECHNIQUE: Noncontrast 4.5 mm thick angled axial sections acquired from the foramen magnum to the vertex, with coronal and sagittal reformats. For radiation dose reduction, the following was used: automated exposure control, adjustment of mA and/or kV according to patient size. COMPARISON: [facility], CT, CT HEAD/BRAIN WO CON, 09/14/2018, 16:13. FINDINGS: Image quality: Excellent. CSF spaces: Basal cisterns are patent. No extra-axial fluid collections. The ventricles are symmetric in size and shape. Brain: No intracranial bleeds or masses. There is cerebral volume loss for age, with resultant ventricular and sulcal prominence. There are periventricular and deep white matter chronic small vessel ischemic changes. There is intracranial internal carotid artery atherosclerosis. Skull and face: Calvarium and visualized facial bones appear intact, without suspicious lesions. Sinuses: Visualized sinuses and mastoids are clear. IMPRESSION: 1. No CT evidence of acute intracranial abnormalities. 2. Age related atrophy and moderate white matter chronic small vessel ischemic changes. Dictated by: Amor Bowden M.D. on 01/26/2022 at 19:28 Approved by: Amor Bowden M.D. on 01/26/2022 at 19:28
[2022-01-26 19:04] LABS: PTT Partial Thromboplastin Tim 36 SECONDS (26.4-36.2)
[2022-01-26 19:08] LABS: Alanine Aminotransferase 26 IU/L (<35); Albumin 3.7 g/dL (3.5-5.0); Albumin Globulin Ratio 1.2 (1.0-2.8); Alkaline Phosphatase 74 U/L (38-126); Aspartate Aminotransferase 30 IU/L (14-36); BUN Creatinine Ratio 21.8 (6-22); Bilirubin Total 0.3 mg/dL (0.2-1.3); Blood Urea Nitrogen 45 mg/dL (7-17); Calcium 8.4 mg/dL (8.4-10.2); Carbon Dioxide 17 mmol/L (22-32); Chloride 115 mmol/L (98-107); Creatine Kinase 76 U/L (30-135); Estimated Glomerular Filt Rate 23.7 mL/min (>60); Ethanol (ETOH) < 10 mg/dL; Globulin 3.1 g/dL (1.7-4.1); Glucose 102 mg/dL (80-110); HEMOLYSIS < 15 (0-50); Lipase 52 U/L (23-300); Potassium 4.5 mmol/L (3.4-5.1); Sodium 141 mmol/L (137-145); Total Protein 6.8 g/dL (6.3-8.2)
[2022-01-26 19:18] LABS: Troponin I < 0.012 ng/mL (0.01-0.034)
[2022-01-26 19:44] VITALS: PULSE 70; RESP 22; O2SAT 97
[2022-01-26 20:00] VITALS: BP 159/74; PULSE 72; RESP 19; O2SAT 97
[2022-01-26 20:30] VITALS: BP 155/69; PULSE 68; RESP 21; O2SAT 93
[2022-01-26 21:00] VITALS: BP 155/69; PULSE 69; RESP 22; O2SAT 93
[2022-01-26 21:05] LABS: COVID19 -Nasal RAPID Negative (Negative)
== END 2022-01-26 22:26 | disposition short-term general hospital (02) ==
PROVIDERS: Emergency Medicine; Emergency Provider Emergency Medicine; PCP Family Medicine
DX: I63.9 Cerebral infarction, unspecified (principal); R29.710 NIHSS score 10; Z86.73 Personal history of transient ischemic attack (TIA), and cerebral infarction without residual deficits; Z20.822 Contact with and (suspected) exposure to COVID-19; Z87.891 Personal history of nicotine dependence
CPT/HCPCS: 36415; 70450; 80053; 80320; 82550; 83690; 83735; 84484; 85025; 85610; 85730; 86850; 86900; 86901; 87635; 93005; 99284; 99291; C9803

== ENCOUNTER 2022-10-31 08:49 | Day surgery (SDC) | payer OTHER, MEDICAID, SELFPAY ==
[2022-10-10 15:12] VITALS: BMI 22.6
--- NOTE | 2022-10-31 | PATH_ITS ---
[facility] Accession Number: [id number] No. of containers..05 Tissue . 01 Material submitted: . PART A: duodenum - DUODENUM PART B: stomach - PYLORUS PART C: stomach - ANTRUM PART D: stomach - FUNDUS PART E: esophagus, E-G Junction - GE JUNCTION . 01 Clinical history: . A-D: R/O H. PYLORI . 01 Diagnosis: A. Duodenum, Biopsy: Duodenal mucosa with no diagnostic abnormality. Negative for active inflammation, features of sprue, dysplasia, or malignancy. . B. Pylorus, Biopsy: Small bowel/ pyloric type mucosa with no diagnostic abnormality. Negative for infectious organsisms, active inflammation, features of sprue, dysplasia, or malignancy. . C. Antrum, Biopsy: Gastric antral mucosa with minimal chronic nonspecific inflammation. No Helicobacter pylori organisms identified on immunohistochemical evaluation. No dysplasia or malignancy identified. . D. Fundus, Biopsy: Gastric oxyntic mucosa with no diagnostic abnormality. No evidence of Helicobacter organisms on H/E stain. Negative for intestinal metaplasia. Negative for dysplasia or malignancy. . E. Gastroesophageal Junction, Biopsy: Squamocolumnar junctional mucosa with mild reactive changes, suggestive of reflux. No specialized intestinal mucosa or fungal organisms identified on H/E stain. No dysplasia or malignancy. [facility] 11/05/2022 1616 Local . 01 Electronically signed: . Julisa Carter MD, Pathologist NPI- [id number] . 01 Gross description: . Part A: DUODENUM: Received in formalin are 2 fragment(s) of loyd, soft tissue measuring 0.2 x 0.2 x 0.2 cm to 0.2 x 0.2 x 0.1 cm submitted entirely in 1 cassette(s) Part B: PYLORUS: Received in formalin are 2 fragment(s) of loyd, soft tissue measuring 0.4 x 0.3 x 0.2 cm to 0.3 x 0.2 x 0.1 cm submitted entirely in 1 cassette(s) Part C: ANTRUM: Received in formalin is 1 fragment(s) of loyd, soft tissue measuring 0.2 x 0.2 x 0.2 cm submitted entirely in 1 cassette(s) Part D: FUNDUS: Received in formalin is 1 fragment(s) of loyd, soft tissue measuring 0.5 x 0.2 x 0.2 cm submitted entirely in 1 cassette(s) Part E: GE JUNCTION: Received in formalin is 1 fragment(s) of loyd, soft tissue measuring 0.2 x 0.2 x 0.2 cm submitted entirely in 1 cassette(s) /CPE 11/01/2022 0644 Local . 01 Microscopic: . C. An immunohistochemical stain was performed to evaluate for Helicobacter organisms and is negative. The control stain showed appropriate reactivity. . * This test was developed and its performance characteristics determined by [employer]. It has not been cleared or approved by the U.S. Food and Drug Administration. The FDA has determined that such clearance or approval is not necessary. This test is used for clinical purposes. It should not be regarded as investigational or for research. . 01 Pathologist provided ICD-10: K29.30, K21.9 . 01 CPT . 627815, 032674, 619395, 509006, 128171, [id number] Specimen Comment: A courtesy copy of this report has been sent to [facility] Performed at: 01 [facility] [address] [place] [address], [place], [place] [id number] MD Robbin Sanchez MD Phone: [phone]
[2022-10-31] MEDS: LACTATED RINGERS 1,000 ML 84 ML IV (09:14)
[2022-10-31 09:27] VITALS: BMI 21.9
[2022-10-31 09:35] LABS: COVID19 -Nasal RAPID Negative (Negative)
--- NOTE | 2022-10-31 09:43 | PM.PREOP ---
Pre-operative Note Interval Note History & Physical reviewed/Exam performed by Physician: Yes Changes to H&P: No H&P completed within 30 days and has changed as indicated here:: Patient and today were consented for dialysis catheter removal. This is a temporary catheter there is a cuff that is palpable underneath the skin and 1 suture in the skin. Looks old and dirty really ought to be removed. I explained to them that this is not a brand name that we have here at the hospital but it should be of similar type that I have seen before and removal should not be that large of procedure; however, I did get permission explaining the possible though rare risks of issues with removing the catheter including pieces breaking off or infection or bleeding that are risks any time these catheters are involved though very rare. They understand and the benefit to them of not waiting and not having to make an extra trip to a very far away hospital early in the morning outweighs these risks and they would like to proceed.
[2022-10-31] MEDS: LIDOCAINE 1% 20 ML 6 ML INJ (10:35)
[2022-10-31] MEDS: LIDOCAINE 4% SOLN 50 ML 20 ML TOP (10:36)
[2022-10-31 10:39] VITALS: BP 186/95; PULSE 97; RESP 14; TEMP 36.2; O2SAT 97
[2022-10-31 10:44] VITALS: BP 182/93; PULSE 97; RESP 22; O2SAT 96
[2022-10-31 10:49] VITALS: BP 183/91; PULSE 99; RESP 16; O2SAT 96
[2022-10-31 10:55] VITALS: BP 183/91; PULSE 94; RESP 16; O2SAT 97
--- NOTE | 2022-10-31 10:59 | SUR.PHASEI ---
1058: PT recovered well, denies any distress, VS at baseline and ready to discharge home. Report given to KAROLINA Diaz will transfer care now.
[2022-10-31 11:15] VITALS: BP 187/89; PULSE 106; RESP 16; TEMP 36.7; O2SAT 93
--- NOTE | 2022-10-31 11:34 | SUR.PHASEII ---
Discharge instructions reviewed with Dirk and patient, noted that he understood. Pt discharged to home.
--- NOTE | 2022-10-31 11:40 | PM.OP.EGD ---
Operative Date/Time/Diagnoses Date of procedure: 10/31/22 Pre-op diagnosis: Epigastric abdominal pain Procedure & Clinicians Study performed: EGD Indications: Patient has been having severe upper abdominal pain and nausea. Surgeon: Mindi Bello Procedure Notes Procedure in detail: The patient was taken to the endoscopy suite and placed in a upright position. A time-out was performed. A bite block was placed. Sedation was performed with the help of Dr. Copeland, an anesthesiologist. The EGD scope was placed into the mouth over the tongue and in entered into the esophagus. It was then advanced through into the stomach past the pylorus and into the duodenum. Throughout the exam there was evidence of gastric inflammation as well as some inflammation around the duodenum. There was a polyp in the pylorus that was biopsied. Additional biopsies were taken of the duodenal mucosa, the pyloric mucosa, antric and fundal mucosa. Photographs in addition were taken. A biopsy of the GE junction was also taken. Overall there was some inflammation in the stomach and in the pylorus. Little mild irritation at the GE junction as well. Biopsies are sent for H pylori and pathology. I did write for Protonix to be taken twice a day for the next week or two, and will see if that helps. They will plan to follow-up with their mechanical sound technician, Dr. NOAM Guzman. I have also written a small amount of the pain medicine that was requested by Ms. Escudero's in order that he has time to get into discuss her pain management with their regular doctor. Complications: none
--- NOTE | 2022-10-31 11:46 | PM.PROC.1 ---
Procedures Date/Time Date of procedure: 10/31/22 Time of procedure: 10:30 General Procedure description: Procedure: Removal of temporary right jugular cuffed dialysis catheter. Informed consent was obtained. Time-out was performed. Sedation by anesthesia provider at the time of EGD procedure. The catheter was prepped and draped in a sterile fashion with chlorhexidine sterile drapes and sterile gloves. A sterile scalpel was used to snip the sutures to the skin. The patient was placed in a Trendelenburg position. Local anesthetic with 1% lidocaine was infused around the area of the catheter. An incision to widen the skin was made and the cuff was palpated and grasped with hemostat and removed. The catheter was then removed in total and pressure was held at the jugular vein in Trendelenburg position for 5 full minutes. Patient tolerated the procedure well and the area was dressed with Tegaderm and gauze.
== END 2022-10-31 11:35 | disposition home or self-care (01) ==
PROVIDERS: PCP Internal Medicine; Referring Provider Surgery; Visit Provider Surgery
PROC: 0DJ08ZZ Inspection of Upper Intestinal Tract, Via Natural or Artificial Opening Endoscopic (ICD-10-PCS; CPT 43235; principal; 2022-10-31 09:45)
DX: K29.50 Unspecified chronic gastritis without bleeding (principal); I12.0 Hypertensive chronic kidney disease with stage 5 chronic kidney disease or end stage renal disease; E11.22 Type 2 diabetes mellitus with diabetic chronic kidney disease; N18.6 End stage renal disease; Z99.2 Dependence on renal dialysis; Z79.4 Long term (current) use of insulin; Z20.822 Contact with and (suspected) exposure to COVID-19
CPT/HCPCS: 43239; 87635; C9803; J2704